=== PATIENT | male | born 1990 | race Caucasian/White ===

== ENCOUNTER 2019-09-20 00:55 | Emergency (ER) | payer SELFPAY ==
[~2019-09-20] VITALS: Ht 187 cm; Wt 79.0 kg
[2019-09-20] MEDS ORDERED: LIDOCAINE 2% VISCOUS 15 ML UDC ONE (01:03)
[2019-09-20] MEDS ORDERED: ANTACID SUSP 30 ML UDC (MYLANTA) ONE (01:03)
--- OUTSIDE RECORDS SUMMARY | 2019-09-20 01:03 | XMS REPORT | Continuity of Care Document ---
Author Author [facility] Organization [facility] Address [address] [place] [address] Phone Unavailable Care Team Providers Care Eap Counselor Name Role Phone Patient States, No PCP Unavailable Unavailable Insurance Providers Payer Name Policy Number Subscriber Name Relationship [facility] [id number] TAWNYA MARQUEZ SELF / SAME PATIENT Advance Directives Directive Response Recorded Date/Time Advance Directives: No 08/26/18 2:25am Chief Complaint and Reason for Visit Reason for Visit ER Problems Active Medical Problems Problem Onset Date Recorded Date Status Influenza due to Influenza A virus Unknown 05/16/13 Active Anxiety disorder Unknown 09/17/16 Active Heart palpitations Unknown 09/17/16 Active Fatigue Unknown 09/17/16 Active Stress and adjustment reaction Unknown 09/17/16 A ctive Skin abscess Unknown 11/07/17 Active Right shoulder pain Unknown 04/29/18 Active Fall Unknown 04/29/18 Active Pharyngitis Unknown 05/01/18 Active GERD (gastroesophageal reflux disease) Unknown 05/01/18 Active Chest wall pain Unknown 06/05/18 Active Contusion of left knee Unknown 06/24/18 Active Left knee pain Unknown 06/24/18 Active Malaise Unknown 07/01/18 Active DISPLACED OBLIQUE FRACTURE OF SHAFT OF LEFT RADIUS, INIT Unknown 08/10/18 Active Anxiety Unknown 08/26/18 Active Emotional crisis, acute reaction to stress Unknown 08/26 Active Medications Past Home Medications Medication Directions Ordered Status Ibuprofen 600 Mg Tablet Tablet, 600 Mg Oral Four times daily for pain 06/05/18 Discontinued No Home Medications Ea Ea, Unknown Disc ontinued Omeprazole (Prilosec) 20 Mg Capsule Capsule, 20 Mg Oral Once leah ly 06/05/18 Discontinued Ondansetron (Zofran) 4 Mg Tablet Tablet, 4 Mg Oral Thr ee times per day as needed for nausea 06/05/18 Discontinued Oseltamivir Phosphate (Tamiflu) 75 Mg Cap Cap, 75 Mg Oral Twice daily 05/16/13 Discontinued Sulfamethoxazole/Trimethoprim (Bactrim D s) 800 Mg/160 Mg Tablet Tablet, 1 Tab Oral Twice daily 11/07/17 Discontinued Family History Relationship Name Date of Condition Age ( At Onset ) Cause of Age ( At ) Age Gender Recorded Date/Time FATHER No pertinent family history M 07/01/181813 MOTHER No pertinent family history F 07/01/[birth year]1813 Social History Query Response Start Date Stop Date Smoking status: Heavy tobacco smoker 10+ Hospital Discharge Instructions No hospital discharge instructions. Plan of Care Discharge Date 08/26/18 Disposition HOME, SELF CARE, ASST LIVING Condition at Discharge Stable Instructions/Education Provided Anxiety, Adult (DC) Palpitations (DC) Prescriptions See Medications Section Referrals [facility] - Additional Instructions/Education -Avoid caffeine, smo seth! -Limit stress at home as much as possibl e. -F/u with [facility] for Cognitive Behavoral therapy. -Establish with PCP for ongoing manageme nt of anxiety ECHO. -See handout for methods to limit stress , relieve. Some of your test results may not be complete prior to your leaving the Emergency Department. The Emergency Department is not authorized to give test results over the phone. Please contact the doctor's office listed on this form for your final results. Follow up with your primary care physician or return to the Emergency Department for worsening or worrisome symptoms. * Emergency Department phone number: [phone] MEDICAL RECORD If you need copies of your X-rays, call [phone]. If you need copies of your medical record, including lab results, a signed authorization for release of records will be required. A telephone call for release of Health Information is not allowed. BILLING Billing can sometimes be confusing and frustrating. To help avoid confusion in the future, please take a moment to acquaint yourself with the billing parties for services. SERVICE BILLING [facility] Emergency [facility] Services [facility] Physician Services [facility] X-rays (Interpretation) [facility] Patients will receive bills for services from the appropriate provider. If you have any questions about your [facility] bill, our staff will be happy to assist you. Please call [phone] and ask for the billing department. THANK YOU for choosing [facility] as your emergency care provider. Care Plan and Goals ~~Discharge Care Plan~~ Problem: Palpitations Goal: Decreased palpitations Instructions: Take medication(s) as directed. Follow home discharge instructions. Follow up with primary care physician as directed. 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 Vital Signs Vital Reading Collection Date/Time Result Blood Pressure 08/26/18 4:55am 108/67 Blood Pressure Source 08/26/18 4:55am Supine Temperature 08/26/18 4:55am 98.2 F Temperature Source 08/26/18 4:55am Oral Respiratory Rate 08/26/18 4:55am 18 Pulse Rate 08/26/18 4:55am 62 Pulse Location 08/26/18 4:55am Cardio-Resp.Monitor Bedside Pulse Oximetry 08/26/18 4:55am 96 Height 08/26/18 2:25am 6 ft 2.02 in Height 08/26/18 2:25am 188 cm Weight 08/26/18 2:25am 175 lb Weight 08/26/18 2:25am 79.5 kg Body Mass Index 08/26/18 2:25am 22.5 kg/m2 Results Laboratory Results Test Name Result Units Flags Reference Collection Date/Time Result Date/Time Comments White Blood Count 11.6 K/mm3 H 4.8-10.8 08/26/18 3:35am 08/26 4:04am Red Blood Count 5.16 M/mm3 4.20-5.60 08/26/18 3:35am 4:04am Hemoglobin 14.8 g/dL 13.5-18.0 08/26/18 3:35am 08/26/18 4: 04am Hematocrit 44.6 % 42.0-52.0 08/26/18 3:35am 08/26/18 4: 04am Mean Corpuscular Volume 86 fl 78-100 08/26/18 3:35am 08/26/18 4:04am Mean Corpuscular Hemoglobin 29 pg 27-31 08/26/18 3:3 5am 08/26/18 4:04am Mean Corpuscular Hemoglobin Concent 33 g/dL 33-3 7 08/26/18 3:35am 08/26/18 4:04am Red Cell Distribution Width 13.1 % 11.5-14.5 08/26/18 3 :35am 08/26/18 4:04am Platelet Count 352 K/mm3 130-400 08/26/18 3:35am 08/26/18 4:04am Mean Platelet Volume 9.3 fl 7.4-10.4 08/26/18 3:35am 4:04am Absolute Neutrophils (auto) 56.0 % 42.0-75.2 08/26/18 3 :35am 08/26/18 4:04am Lymphocytes % 31.0 % 20.0-51.0 08/26/18 3:35am 08/26/18 4:04am Monocytes % 10.5 % *H 1.0-10.0 08/26/18 3:35am 08/26/18 4: 04am Eosinophils % 1.7 % 0.0-4.0 08/26/18 3:35am 08/26/18 4 :04am Basophils % 0.6 % 0.0-2.0 08/26/18 3:35am 08/26/18 4:0 4am Absolute Neutrophil 6.5 1.40-6.50 08/26/18 3:35am 4:04am Lymphocytes # 3.6 1.50-4.00 08/26/18 3:35am 08/26/18 4:04am Monocytes # 1.2 H 0.20-0.80 08/26/18 3:35am 08/26/18 4 :04am Eosinophils # 0.2 0.04-0.40 08/26/18 3:35am 08/26/18 4:04am Basophils # 0.1 0.02-0.10 08/26/18 3:35am 08/26/18 4 :04am D-Dimer 0.25 mg/L FEU 0.15-0.50 08/26/18 3:35am 08/26/18 4:16 am A D-Dimer of 0.50 mg/L FEU or less with an otherwise normal patient history = LOW PROBABILITY OF DVT/PE. A D-Dimer of >0.50 mg/L FEU = CONTINUE THE INVESTIGATION TO RULE OUT DVT/PE. Glucose Level 95 mg/dL 75-110 08/26/18 3:35am 08/26/18 4 :04am Blood Urea Nitrogen 13 mg/dL 9-20 08/26/18 3:35am 08/17 4:04am Creatinine 0.9 mg/dL 0.8-1.5 08/26/18 3:35am 08/26/18 4:04 am Estimated GFR () 122 9 3:35am 08/26/18 4:04am Estimated GFR (Non- 101 08/17 3:35am 08/26/18 4:04am eGFR Interpretation: Chronic Kidney Disease = CKD CKD STAGE I > or = 90 mL/min/1.73 square meters STAGE II 60 - 89 STAGE III 30 - 59 STAGE IV 15 - 29 STAGE V <15 NOTE: The MDRD Study equation has not been validated for use with the elderly (over 70 years of age), women, patients with serious comorbid conditions, or persons with extremes of body size, muscle mass, or nutritional status. BUN/Creatinine Ratio 15.4 6.0-26.0 08/26/18 3:35am 4:04am Sodium Level 139 mmol/L 137-145 08/26/18 3:35am 08/26/18 4: 04am Potassium Level 3.6 mmol/L 3.6-5.0 08/26/18 3:35am 08/26/18 4:04am Chloride Level 106 mmol/L 98-107 08/26/18 3:35am 08/26/18 4:04am Carbon Dioxide Level 25 mmol/L 22-30 08/26/18 3:35am 03/06 4:04am Calcium Level 9.6 mg/dL 8.4-10.2 08/26/18 3:35am 08/26/18 4:04am Serum Total Protein 7.4 g/dL 6.3-8.2 08/26/18 3:35am 08/17 4:04am Albumin 4.4 g/dL 3.5-5.0 08/26/18 3:35am 08/26/18 4:04am Total Bilirubin 0.5 mg/dL 0.2-1.3 08/26/18 3:35am 08/26/18 4:04am Aspartate Amino Transf (AST/SGOT) 23 U/L 17-59 08/26/18 3:35am 08/26/18 4:04am Alanine Aminotransferase (ALT/SGPT) 20 U/L L 21-7 2 08/26/18 3:35am 08/26/18 4:04am Alkaline Phosphatase 73 U/L 38-126 08/26/18 3:35am 03/06 4:04am Troponin I < 0.03 ng/mL 0.00-0.06 08/26/18 3:35am 08/26/18 4: 04am Urine Collection Type CLEAN CATCH 08/26/18 3:05a m 08/26/18 4:14am Urine Color YELLOW 08/26/18 3:05am 08/26/18 4:1 4am Urine Appearance HAZY 08/26/18 3:05am 9 4:14am Urine Specific [place] 1.030 1.001-1.035 08/26/18 3:05 am 08/26/18 4:14am Urine pH 5.5 5.0 - 8.0 08/26/18 3:05am 08/26/18 4:14 am Urine Protein NEGATIVE mg/dL NEGATIVE 08/26/18 3:05am 08/26/18 4:14am Urine Glucose (UA) NEGATIVE mg/dL NEGATIVE 08/26/18 3:05am 03/06 4:14am Urine Ketones NEGATIVE NEGATIVE 08/26/18 3:05am 08/26/18 4:14am Urine Bilirubin NEGATIVE NEGATIVE 08/26/18 3:05am 4:14am Urine Urobilinogen NORMAL NORMAL 08/26/18 3:05am 08/26 4:14am Urine Nitrate NEGATIVE NEGATIVE 08/26/18 3:05am 08/26/18 4:14am Urine Blood TRACE H NEGATIVE 08/26/18 3:05am 08/26/18 4: 14am Urine Leukocyte Esterase NEGATIVE NEGATIVE 08/26/18 3:05 am 08/26/18 4:14am Urine WBC 0-1 /hpf 0-3 08/26/18 3:05am 08/26/18 4:14a m Urine RBC 0-1 /hpf 0-3 08/26/18 3:05am 08/26/18 4:14a m Urine Epithelial Cells RARE /lpf FEW 08/26/18 3:05am 0 08/26/18 4:14am Urine Bacteria TRACE NOT PRESENT 08/26/18 3:05am 08/26 4:14am Urine Mucus PRESENT H NOT PRESENT 08/26/18 3:05am 08/26/18 4:14am Urine Amphetamine Screen NEGATIVE ng/mL 08/26/18 3:05a m 08/26/18 4:13am Interpretive Note: Cutoff 500 ng/mL Urine Barbiturates Screen NEGATIVE ng/mL 08/26/18 3:05 am 08/26/18 4:13am Interpretive Note: Cutoff 200 ng/mL Urine Benzodiazepines Screen NEGATIVE ng/mL 08/26/18 3 :05am 08/26/18 4:13am Interpretive Note: Cutoff 150 ng/mL Urine Buprenorphine Screen NEGATIVE ng/mL 08/26/18 3:0 5am 08/26/18 4:13am Interpretive Note: Cutoff 10 ng/mL Urine Cocaine Screen NEGATIVE ng/mL 08/26/18 3:05am 4:13am Interpretive Note: Cutoff 150 ng/mL Urine Methamphetamines Screen NEGATIVE ng/mL 08/26/18 3:05am 08/26/18 4:13am Interpretive Note: Cutoff 500 ng/mL Urine Methadone Screen NEGATIVE ng/mL 08/26/18 3:05am 08/26/18 4:13am Interpretive Note: Cutoff 200 ng/mL Urine Opiates Screen NEGATIVE ng/mL 08/26/18 3:05am 4:13am Interpretive Note: Cutoff 100 ng/mL Urine Oxycodone Screen NEGATIVE ng/mL 08/26/18 3:05am 08/26/18 4:13am Interpretive Note: Cutoff 100 ng/mL Urine Phencyclidine Screen NEGATIVE ng/mL 08/26/18 3:0 5am 08/26/18 4:13am Interpretive Note: Cutoff 25 ng/mL Urine Propoxyphene Screen NEGATIVE ng/mL 08/26/18 3:05 am 08/26/18 4:13am Interpretive Note: Cutoff 300 ng/mL Urine Tricyclic Antidepressants NEGATIVE ng/mL 08/26/18 3:05am 08/26/18 4:13am Interpretive Note: Cutoff 300 ng/mL Urine Cannabinoids Screen NEGATIVE ng/mL 08/26/18 3:05 am 08/26/18 4:13am Interpretive Note: Cutoff 50 ng/mL Procedures No Known History of Procedures. Encounters Encounter Location Arrival/Admit Date Discharge/Depart Date Attending Provider Departed [facility] 08/26/18 2:23am 08/26/18 4: 55am Jennifer Machuca APRN Departed Emergency [facility] 08/10/18 6:29pm 08/10/18 8: 20pm [facility] 1: 10am Marie Dennis APRN Encounter Diagnosis Onset Date Heart palpitations Anxiety Emotional crisis, acute reaction to stress
--- OUTSIDE RECORDS SUMMARY | 2019-09-20 01:03 | XMS REPORT | Continuity of Care Document ---
Author Author [facility] Organization [facility] Address [address] [place] [address] Phone tel Care Team Providers Care Orthotic Practitioner Name Role Phone Patient States, PCP No PCP Unavailable Allergies, Adverse Reactions, Alerts Allergen Type Severity Reaction Last Updated Verified Status No Known Drug Allergies Allergy Unknown Yes Active Medications No known medications. Problems Active Problems Medical Problem Onset Date Status Influenza due to Influenza A virus Activ e Anxiety disorder Active Heart palpitations Active Fatigue Active Stress and adjustment reaction Active Skin abscess Active Right shoulder pain Active Fall Active Pharyngitis Active GERD (gastroesophageal reflux disease) A ctive Chest wall pain Active Contusion of left knee Active Left knee pain Active Malaise Active DISPLACED [place] FRACTURE OF SHAFT OF LEFT RADIUS, INIT Active Anxiety Active Emotional crisis, acute reaction to stress Active Viral illness Active Common cold virus Active Insomnia Active Procedures No procedure information available. Relevant Diagnostic Tests and/or Laboratory Data Laboratory Results Test Date/Time Result Interpretation Reference Range Result Co mment Performing Site White Blood Count February 28, 2019 4:50am 8.4 4.8-[address] [address] Red Blood Count February 28, 2019 4:50am 5.07 4.20-5.[address] [address] Hemoglobin February 28, 2019 4:50am 14.7 13.5-18.[address] [address] Hematocrit February 28, 2019 4:50am 44.0 42.0-52.0 [facility], [address] [place] [address] Mean Corpuscular Volume February 28, 2019 4:50am 87 78-100 [facility], [address] [place] [address] Mean Corpuscular Hemoglobin February 28, 2019 4:50am 29 27-31 [facility], [address] [place] [address] Mean Corpuscular Hemoglobin Concent February 28, 2019 4:50am 33 33-37 [facility], [address] [place] [phone] Red Cell Distribution Width February 28, 2019 4:50am 12.9 11.5-14.5 [facility], [address] [place] [address] Platelet Count February 28, 2019 4:50am 282 130-400 [facility], [address] [place] [address] Mean Platelet Volume February 28, 2019 4:50am 9.6 7.4 -10.4 [facility], [address] [place] [address] Absolute Neutrophils (auto) February 28, 2019 4:50am 50.0 42.0-75.2 [facility], [address] [place] [address] Lymphocytes % February 28, 2019 4:50am 34.5 20.0-51.0 [facility], [address] [place] [address] Monocytes % February 28, 2019 4:50am 10.9 1.0-10.[address] [address] Eosinophils % February 28, 2019 4:50am 3.8 0.0-4.[address] [address] Basophils % February 28, 2019 4:50am 0.7 0.0-2.[address] [address] Absolute Neutrophil February 28, 2019 4:50am 4.2 1.40 -6.50 [facility], [address] [place] [address] Lymphocytes # February 28, 2019 4:50am 2.9 1.50-4.00 [facility], [address] [place] [address] Monocytes # February 28, 2019 4:50am 0.9 0.20-0.80 [facility], [address] [place] [address] Eosinophils # February 28, 2019 4:50am 0.3 0.04-0.40 [facility], [address] [place] [address] Basophils # February 28, 2019 4:50am 0.1 0.02-0.10 [facility], [address] [place] [address] Urine Collection Type February 28, 2019 5:08am CLEAN CATCH [facility], [address] [place] [address] Urine Color February 28, 2019 5:08am YELLOW [facility], [address] [place] [address] Urine Appearance February 28, 2019 5:08am CLEAR [facility], [address] [place] [address] Urine Specific [place] February 28, 2019 5:08am 1.022 1 .001-1.035 [facility], [address] [place] [address] Urine pH February 28, 2019 5:08am 7.0 5.0 - 8.0 [facility], [address] [place] [address] Urine Protein February 28, 2019 5:08am TRACE NEGATIVE [facility], [address] [place] [address] Urine Glucose (UA) February 28, 2019 5:08am NEGATIVE NEGAT ANTHONY [facility], [address] [place] [address] Urine Ketones February 28, 2019 5:08am NEGATIVE NEGATIVE [facility], [address] [place] [address] Urine Bilirubin February 28, 2019 5:08am NEGATIVE NEGATIVE [facility] [address] [place] [address] Urine Urobilinogen February 28, 2019 5:08am NORMAL TRE L [facility], [address] [place] [address] Urine Nitrate February 28, 2019 5:08am NEGATIVE NEGATIVE [facility], [address] [place] [address] Urine Blood February 28, 2019 5:08am NEGATIVE NEGATIVE [facility], [address] [place] [address] Urine Leukocyte Esterase February 28, 2019 5:08am TRACE NEGATIVE [facility], [address] [place] [address] Urine WBC February 28, 2019 5:08am 0-1 0-3 [facility], [address] [place] [address] Urine RBC February 28, 2019 5:08am 0-1 0-3 [facility], [address] [place] [address] Urine Epithelial Cells February 28, 2019 5:08am RARE F EW [facility], [address] [place] [address] Urine Bacteria February 28, 2019 5:08am NONE NOT PRESE NT [facility], [address] [place] [address] Urine Mucus February 28, 2019 5:08am PRESENT NOT PRESENT [facility], [address] [place] [address] Urine Amorphous Sediment February 28, 2019 5:08am PRESENT NOT PRESENT [facility], [address] [place] [address] Glucose Level February 28, 2019 4:50am 106 75-110 [facility], [address] [place] [address] Blood Urea Nitrogen February 28, 2019 4:50am 8 8.9- 20.6 [facility], [address] [place] [address] Sodium Level February 28, 2019 4:50am 141 136-145 [facility], [address] [place] [address] Potassium Level February 28, 2019 4:50am 3.8 3.5-5.1 [facility], [address] [place] [address] Chloride Level February 28, 2019 4:50am 108 98-107 [facility], [address] [place] [address] Carbon Dioxide Level February 28, 2019 4:50am 25 22- 29 [facility], [address] [place], [place] [address] Calcium Level February 28, 2019 4:50am 9.2 8.3-10.5 [facility], [address] [place] [address] Serum Total Protein February 28, 2019 4:50am 6.7 6.4- 8.3 [facility], [address] [place] [address] Albumin February 28, 2019 4:50am 4.0 3.5-5.0 [facility], [address] [place] [address] Total Bilirubin February 28, 2019 4:50am 0.3 0.2-1.2 [facility], [address] [place] [address] Aspartate Amino Transf (AST/SGOT) February 28, 2019 4:50am 12 5-34 [facility], [address] [place] [address] Alanine Aminotransferase (ALT/SGPT) February 28, 2019 4:50am 18 0-55 [facility], [address] [place] [address] Alkaline Phosphatase February 28, 2019 4:50am 79 40- [address] [address] Thyroid Stimulating Hormone (TSH) February 28, 2019 12:45am 0.85 0.35-4.[address] [address] Urine Amphetamine Screen February 28, 2019 5:08am NEGATIVE Interpretive Note: Cutoff 500 ng/mL [address] [address] Urine Barbiturates Screen February 28, 2019 5:08am NEGATIVE Interpretive Note: Cutoff 200 ng/mL [facility], [address] [place] [address] Urine Benzodiazepines Screen February 28, 2019 5:08am NEGATIVE Interpretive Note: Cutoff 150 ng/mL [facility], [address] [place] [address] Urine Buprenorphine Screen February 28, 2019 5:08am NEGATIVE Interpretive Note: Cutoff 10 ng/mL [facility], [address] [place] [address] Urine Cocaine Screen February 28, 2019 5:08am NEGATIVE Interpretive Note: Cutoff 150 ng/mL [facility], [address] [place] [address] Urine Methamphetamines Screen February 28, 2019 5:08am NEGATIVE Interpretive Note: Cutoff 500 ng/mL [facility], [address] [place] [address] Urine Methadone Screen February 28, 2019 5:08am NEGATIVE Interpretive Note: Cutoff 200 ng/mL [facility], [address] [place] [address] Urine Opiates Screen February 28, 2019 5:08am NEGATIVE Interpretive Note: Cutoff 100 ng/mL [facility], [address] [place] [address] Urine Oxycodone Screen February 28, 2019 5:08am NEGATIVE Interpretive Note: Cutoff 100 ng/mL [facility], [address] [place] [address] Urine Phencyclidine Screen February 28, 2019 5:08am NEGATIVE Interpretive Note: Cutoff 25 ng/mL [facility], [address] [place] [address] Urine Propoxyphene Screen February 28, 2019 5:08am NEGATIVE Interpretive Note: Cutoff 300 ng/mL [facility], [address] [place] [address] Urine Tricyclic Antidepressants February 28, 2019 5:08am NEGATIVE Interpretive Note: Cutoff 300 ng/mL [facility], [address] [place] [address] Urine Cannabinoids Screen February 28, 2019 5:08am NEGATIVE Interpretive Note: Cutoff 50 ng/mL [facility], [address] [place] [address] Troponin I February 28, 2019 4:50am < 0.03 <0.030 [facility], [address] [place] [phone] Health Concerns No known health concerns documented Advance Directives Advance Directive Response Recorded Date/Time No No February 28, 2019 4 :29am Chief Complaint and Reason for Visit Reason for Visit ER Encounters Encounter Location(s) Arrival/Admit Date Discharge/Depart Date Provider(s) Departed Emergency [facility] February 28, 2019 4:21a m February 28, 2019 7:20am Harley Perry MD Recent Diagnosis Onset Date Insomnia Heart palpitations Assessments Diagnosis Onset Date Resolution Status Insomnia Active Heart palpitations Active Family History Relationship Condition Age at Onset Recorded Date/Ti me FATHER No pertinent family history Unknown Febr ua 2018 6:14pm MOTHER No pertinent family history Unknown Febr 2018 6:14pm Functional Status Observation Response Date Recorded Paralysis: N February 28, 2019 4 :35am Steady Gait: Y February 28, 2019 4 :35am 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 Payer Policy Id Coverage Id Subscriber's Name Subscriber Id Effect anthony Date Expiration Date [place] [id number] TAWNYA MARQUEZ Plan of Treatment Future Tests Future scheduled test information is unavailable Pending Tests Pending diagnostic test information is unavailable Future Visits Future appointment information is unavailable Referrals to Other Providers Reason for Referral Referral Start Date Provider Provider Conta ct Information Provider Address Patient States, No PCP Future Procedures Future procedure information is unavailable Future Medications Future medication information is unavailable Patient Instructions Palpitations (DC) Social History Smoking Status Status Date of Observation Current Heavy tobacco smoker February 28, 2019 4:34am Assigned Sex Male Vital Signs Vital Reading Result Collection Date/Time BP Systolic 123 mm[Hg] February 28, 2019 7 :20am BP Diastolic 73 mm[Hg] February 28, 2019 7 :20am Body Temperature 98.2 [degF] February 28, 2019 7 :20am Respiratory rate 16 /min February 28, 2019 7 :20am Heart Rate 58 /min February 28, 2019 7 :20am Oxygen saturation by Pulse oximetry 99 % Octo 2018 7:20am Height 74.398594 [in_i] February 28, 2019 4 :29am Weight 175.00 [lb_av] February 28, 2019 4 :29am Weight 79.5 kg February 28, 2019 4 :29am BMI (Body Mass Index) 22.5 kg/m2 February 28, 2019 4:29am
--- OUTSIDE RECORDS SUMMARY | 2019-09-20 01:03 | XMS REPORT | Continuity of Care Document ---
Author Author [facility] Organization [facility] Address [address] [place] [address] Phone tel Care Team Providers Care Credit Negotiator Name Role Phone Patient States, PCP No [...] Active Common cold virus Active Insomnia Active Acid indigestion Active Procedures No procedure information available. Relevant Diagnostic Tests and/or Laboratory Data Laboratory Results Test Date/Time Result Interpretation Reference Range Result Co mment Performing Site White Blood Count February 28, 2019 4:50am 8.4 4.8-[address] [address] Red Blood Count February 28, 2019 4:50am 5.07 4.20-5.[address] [address] Hemoglobin February 28, 2019 4:50am 14.7 13.5-18.[address] [address] Hematocrit February 28, 2019 4:50am 44.0 42.0-52.0 [facility], [address] [place] [address] Mean Corpuscular Volume February 28, 2019 4:50am 87 78-100 [facility], [address] [place] [address] Mean Corpuscular Hemoglobin February 28, 2019 4:50am 29 27-31 [facility], [address] [place] [address] Mean Corpuscular Hemoglobin Concent February 28, 2019 4:50am 33 33-37 [facility], [address] [place] [phone] Red Cell Distribution Width February 28, 2019 4:50am 12.9 11.5-14.5 [facility], [address] [place] [address] Platelet Count February 28, 2019 4:50am 282 130-400 [facility], [address] [place] [address] Mean Platelet Volume February 28, 2019 4:50am 9.6 7.4 -10.4 [facility], [address] [place] [address] Absolute Neutrophils (auto) February 28, 2019 4:50am 50.0 42.0-75.2 [facility], [address] [place] [phone] Lymphocytes % February 28, 2019 4:50am 34.5 20.0-51.0 [facility], [address] [place] [address] Monocytes % February 28, 2019 4:50am 10.9 1.0-10.0 [facility], [address] [place] [address] Eosinophils % February 28, 2019 4:50am 3.8 0.0-4.0 [facility], [address] [place] [address] Basophils % February 28, 2019 4:50am 0.7 0.0-2.[address] [address] Absolute Neutrophil February 28, 2019 4:50am 4.2 1.40 -6.50 [facility], [address] [place] [address] Lymphocytes # February 28, 2019 4:50am 2.9 1.50-4.00 [facility], [address] [place] [address] Monocytes # February 28, 2019 4:50am 0.9 0.20-0.80 [facility], [address] [place] [address] Eosinophils # February 28, 2019 4:50am 0.3 0.04-0.40 [facility], [address] [place] [address] Basophils # February 28, 2019 4:50am 0.1 0.02-0.10 [facility], [address] [place] [address] Urine Collection Type February 28, 2019 5:08am CLEAN CATCH [facility], [address] [place], [place] [phone] Urine Color February 28, 2019 5:08am YELLOW [facility], [address] [place] [address] Urine Appearance February 28, 2019 5:08am CLEAR [facility], [address] [place], [place] [phone] Urine Specific [place] February 28, 2019 5:08am 1.022 1 .001-1.035 [facility], [address] [place], [place] [phone] Urine pH February 28, 2019 5:08am 7.0 5.0 - 8.0 [facility], [address] [place] [address] Urine Protein February 28, 2019 5:08am TRACE NEGATIVE [facility], [address] [place] [phone] Urine Glucose (UA) February 28, 2019 5:08am NEGATIVE NEGAT ANTHONY [facility], [address] [place], [place] [phone] Urine Ketones February 28, 2019 5:08am NEGATIVE NEGATIVE [facility], [address] [place] [address] Urine Bilirubin February 28, 2019 5:08am NEGATIVE NEGATIVE [facility], [address] [place] [phone] Urine Urobilinogen February 28, 2019 5:08am NORMAL TRE L [facility], [address] [place] [phone] Urine Nitrate February 28, 2019 5:08am NEGATIVE NEGATIVE [facility], [address] [place] [address] Urine Blood February 28, 2019 5:08am NEGATIVE NEGATIVE [facility], [address] [place] [address] Urine Leukocyte Esterase February 28, 2019 5:08am TRACE NEGATIVE [facility], [address] [place] [address] Urine WBC February 28, 2019 5:08am 0-1 0-3 [facility], [address] [place] [address] Urine RBC February 28, 2019 5:08am 0-1 0-3 [facility], [address] [place] [address] Urine Epithelial Cells February 28, 2019 5:08am RARE F EW [facility], [address] [place] [address] Urine Bacteria February 28, 2019 5:08am NONE NOT PRESE NT [facility], [address] [place] [address] Urine Mucus February 28, 2019 5:08am PRESENT NOT PRESENT [facility], [address] [place] [address] Urine Amorphous Sediment February 28, 2019 5:08am PRESENT NOT PRESENT [facility], [address] [place] [address] Glucose Level February 28, 2019 4:50am 106 75-110 [facility], [address] [place] [address] Blood Urea Nitrogen February 28, 2019 4:50am 8 8.9- 20.6 [facility], [address] [place] [address] Creatinine February 28, 2019 4:50am 0.8 0.72-1.25 [facility], [address] [place] [address] Estimated GFR () February 28, 2019 4:50am 140 >=60 [facility], [address] [place] [phone] Estimated GFR (Non- February 28, 2019 4:50am 116 >=60 Normal >= 60Mild to moderate decrease 45-59Moderate to severe decrease 30-44Severe decrease 15-29Kidney Failure < 15 [facility], [address] [place] [address] BUN/Creatinine Ratio February 28, 2019 4:50am 10.0 6.0 -26.0 [facility], [address] [place] [address] Sodium Level February 28, 2019 4:50am 141 136-145 [facility], [address] [place] [address] Potassium Level February 28, 2019 4:50am 3.8 3.5-5.1 [facility], [address] [place] [address] Chloride Level February 28, 2019 4:50am 108 98-107 [facility], [address] [place] [address] Carbon Dioxide Level February 28, 2019 4:50am 25 22- 29 [facility], [address] [place] [address] Calcium Level February 28, 2019 4:50am 9.2 8.3-10.5 [facility], [address] [place] [address] Serum Total Protein February 28, 2019 4:50am 6.7 6.4- 8.[address] [address] Albumin February 28, 2019 4:50am 4.0 3.5-5.0 [facility], [address] [place] [address] Total Bilirubin February 28, 2019 4:50am 0.3 0.2-1.[address] [address] Aspartate Amino Transf (AST/SGOT) February 28, 2019 4:50am 12 5-34 [facility], [address] [place] [phone] Alanine Aminotransferase (ALT/SGPT) February 28, 2019 4:50am 18 0-55 [facility], [address] [place] [address] Alkaline Phosphatase February 28, 2019 4:50am 79 40- [address] [address] Thyroid Stimulating Hormone (TSH) February 28, 2019 12:45am 0.85 0.35-4.94 [facility], [address] [place] [address] Urine Amphetamine Screen February 28, 2019 5:08am NEGATIVE Interpretive Note: Cutoff 500 ng/mL [facility], [address] [place] [phone] Urine Barbiturates Screen February 28, 2019 5:08am NEGATIVE Interpretive Note: Cutoff 200 ng/mL [facility], [address] [place] [phone] Urine Benzodiazepines Screen February 28, 2019 5:08am NEGATIVE Interpretive Note: Cutoff 150 ng/mL [facility], [address] [place] [address] Urine Buprenorphine Screen February 28, 2019 5:08am NEGATIVE Interpretive Note: Cutoff 10 ng/mL [facility], [address] [place] [phone] Urine Cocaine Screen February 28, 2019 5:08am NEGATIVE Interpretive Note: Cutoff 150 ng/mL [facility], [address] [place] [address] Urine Methamphetamines Screen February 28, 2019 5:08am NEGATIVE Interpretive Note: Cutoff 500 ng/mL [facility], [address] [place] [phone] Urine Methadone Screen February 28, 2019 5:08am NEGATIVE Interpretive Note: Cutoff 200 ng/mL [facility], [address] [place] [address] Urine Opiates Screen February 28, 2019 5:08am NEGATIVE Interpretive Note: Cutoff 100 ng/mL [address] [address] Urine Oxycodone Screen February 28, 2019 5:08am NEGATIVE Interpretive Note: Cutoff 100 ng/mL [facility], [address] [place] [phone] Urine Phencyclidine Screen February 28, 2019 5:08am NEGATIVE Interpretive Note: Cutoff 25 ng/mL [address] [address] Urine Propoxyphene Screen February 28, 2019 5:08am NEGATIVE Interpretive Note: Cutoff 300 ng/mL [address] [address] Urine Tricyclic Antidepressants February 28, 2019 5:08am NEGATIVE Interpretive Note: Cutoff 300 ng/mL [address] [address] Urine Cannabinoids Screen February 28, 2019 5:08am NEGATIVE Interpretive Note: Cutoff 50 ng/mL [address] [address] Troponin I February 28, 2019 4:50am < 0.03 <0.[address] [address] Health Concerns No known health concerns documented Advance Directives Advance Directive Response Recorded Date/Time No No March 04, 2019 7 :25pm Chief Complaint and Reason for Visit Reason for Visit ER Encounters Encounter Location(s) Arrival/Admit Date Discharge/Depart Date Provider(s) Departed Emergency [facility] March 04, 2019 7:04p m March 04, 2019 9:45pm Jennifer Machuca APRN Departed Emergency [facility] February 28, 2019 4:21a m February 28, 2019 7:20am Harley Perry MD Recent Diagnosis Onset Date Acid indigestion Insomnia Heart palpitations Assessments Diagnosis Onset Date Resolution Status Acid indigestion Active Insomnia Active Heart palpitations Active Family History Relationship Condition Age at Onset Recorded Date/Ti me FATHER No pertinent family history Unknown Febr 2018 6:14pm MOTHER No pertinent family history Unknown Febr 2018 6:14pm Functional Status Observation Response Date Recorded Paralysis: N March 04, 2019 9 :15pm Steady Gait: Y March 04, 2019 9 :15pm Hand Financial Sales Representative Equal: Y March 04, 2019 9 :15pm Goals No Goals Information Available Immunizations No Immunization Information Available Mental Status No Mental Status Information Available Medical Equipment No Medical Equipment Information available Insurance Providers Guarantor TAWNYA MARQUEZ Address [address] [place] [id number] Contact Info. Payer Policy Id Coverage Id Subscriber's Name Subscriber Id Effect anthony Date Expiration Date [place] [id number] TAWNYA MARQUEZ Plan of Treatment Future Tests Future scheduled test information is unavailable Pending Tests Pending diagnostic test information is unavailable Future Visits Future appointment information is unavailable Referrals to Other Providers Reason for Referral Referral Start Date Provider Provider Conta ct Information Provider Address [facility], [facility] Future Procedures Future procedure information is unavailable Future Medications Future medication information is unavailable Patient Instructions Dyspepsia (DC) Social History Smoking Status Status Date of Observation Current Heavy tobacco smoker March 04, 2019 8:03pm Assigned Sex Male Vital Signs Vital Reading Result Collection Date/Time BP Systolic 106 mm[Hg] March 04, 2019 9 :45pm BP Diastolic 74 mm[Hg] March 04, 2019 9 :45pm Body Temperature 98.2 [degF] March 04, 2019 9 :45pm Respiratory rate 16 /min March 04, 2019 9 :45pm Heart Rate 69 /min March 04, 2019 9 :45pm Oxygen saturation by Pulse oximetry 98 % 2018 9:45pm Height 0 [in_i] March 04, 2019 7 :25pm Height 0 cm March 04, 2019 7 :25pm BP Systolic 123 mm[Hg] February 28, 2019 7 :20am BP Diastolic 73 mm[Hg] February 28, 2019 7 :20am Body Temperature 98.2 [degF] February 28, 2019 7 :20am Respiratory rate 16 /min February 28, 2019 7 :20am Heart Rate 58 /min February 28, 2019 7 :20am Oxygen saturation by Pulse oximetry 99 % 2018 7:20am Height 74.197060 [in_i] February 28, 2019 4 :29am Weight 175.00 [lb_av] February 28, 2019 4 :29am Weight 79.5 kg February 28, 2019 4 :29am BMI (Body Mass Index) 22.5 kg/m2 February 28, 2019 4:29am
--- OUTSIDE RECORDS SUMMARY | 2019-09-20 01:03 | XMS REPORT | Continuity of Care Document ---
Author Author Organization Address [address] [place] [address] Phone Unavailable Care Team Providers Care Wet Sander Name Role Phone Patient States, No PCP Unavailable Unavailable Insurance Providers Payer Name Policy Number Subscriber Name Relationship [facility] [id number] TAWNYA MARQUEZ SELF / SAME PATIENT Advance Directives Directive Response Recorded Date/Time Advance Directives: No 11/24/18 2:24am Chief Complaint and Reason for Visit Reason [...] acute reaction to stress Unknown 08/26 Active Viral illness Unknown 11/24/18 Active Medications Current Home Medications Medication Dose Units Route Directions Days/Qty Instructions Star t Date Ondansetron (Zofran) 4 MG TABLET 4 MG ORAL Every eight hours as needed as needed for nausea and vomiting 10 Days 07/09/19 Past Home Medications Medication Directions Ordered Status [...] Response Start Date Stop Date Smoking status: Current every day smoker Hospital Discharge Instructions No hospital discharge instructions. Plan of Care Discharge Date 11/24/18 Disposition HOME, SELF CARE, ASST LIVING Condition at Discharge Stable Instructions/Education Provided Viral Syndrome (DC) Prescriptions See Medications Section Referrals Patient States,No PCP - [facility] - One Week Additional Instructions/Education Push fluids - Water Prescription for nausea medication sent to pharmacy take as directed. Tylenol and Ibuprofen as needed for pain over the counter. Take with food. Advance diet as tolerated. If worse, concerns return to the ER. Some of your test results may not [...] worrisome symptoms. * Emergency Department phone number: [phone] MEDICAL RECORD If you need copies of your X-rays, call [phone]. If you need copies of your medical record, including lab results, a signed authorization for release of records will be required. A telephone call for release of Health Information is not allowed. BILLING Billing can sometimes be confusing and frustrating. To help avoid confusion in the future, please take a moment to acquaint yourself with the billing parties for services. SERVICE BILLING [facility] Emergency Room Services Physician Services [facility] X-rays (Interpretation) [facility] Patients will receive bills for services from the appropriate provider. If you have any questions about your bill, our staff will be happy to assist you. Please call [phone] and ask for the billing department. THANK YOU for choosing as your emergency care provider. Care Plan and Goals ~~Discharge Care Plan~~ Problem: Nausea, vomiting or diarrhea Goal: Decrease in nausea, vomiting or diarrhea Instructions: Encourage fluids approximately 6-8 glasses of water or noncarbonated fluids. Take medication(s) as directed. Follow home discharge instructions. Follow up with primary care physicians or supervisor roving as directed. Functional Status Query Response Date Recorded Paralysis: N August 26, 2018 2:35a m Steady Gait: Y November 24, 2018 2:30am Hand Application Support Technician Equal: Y August 26, 2018 2:35a m Allergies, Adverse Reactions, Alerts Allergen Type Severity Reaction Status Last Updated No Known Drug Allergies Allergy Unknown Active 0 11/24/18 Immunizations No Known History of Immunizations. Vital Signs Vital Reading Collection Date/Time Result Blood Pressure 11/24/18 3:33am 112/68 Blood Pressure Source 11/24/18 3:33am Sitting Temperature 11/24/18 3:33am 98.1 F Temperature Source 11/24/18 3:33am Oral Respiratory Rate 11/24/18 3:33am 16 Pulse Rate 11/24/18 3:33am 68 Pulse Location 11/24/18 3:33am Machine Bedside Pulse Oximetry 11/24/18 3:33am 98 Results Laboratory Results Test Name Result Units Flags Reference Collection Date/Time Result Date/Time Comments White Blood Count 8.8 K/mm3 4.8-10.8 11/24/18 2:45am 11/24 3:04am Red Blood Count 5.37 M/mm3 4.20-5.60 11/24/18 2:45am 3:04am Hemoglobin 15.6 g/dL 13.5-18.0 11/24/18 2:45am 11/24/18 3: 04am Hematocrit 46.8 % 42.0-52.0 11/24/18 2:45am 11/24/18 3: 04am Mean Corpuscular Volume 87 fl 78-100 11/24/18 2:45am 11/24/18 3:04am Mean Corpuscular Hemoglobin 29 pg 27-31 11/24/18 2:4 5am 11/24/18 3:04am Mean Corpuscular Hemoglobin Concent 33 g/dL 33-3 7 11/24/18 2:45am 11/24/18 3:04am Red Cell Distribution Width 12.8 % 11.5-14.5 11/24/18 2 :45am 11/24/18 3:04am Platelet Count 299 K/mm3 130-400 11/24/18 2:45am 11/24/18 3:04am Mean Platelet Volume 9.4 fl 7.4-10.4 11/24/18 2:45am 3:04am Absolute Neutrophils (auto) 54.2 % 42.0-75.2 11/24/18 2 :45am 11/24/18 3:04am Lymphocytes % 32.0 % 20.0-51.0 11/24/18 2:45am 11/24/18 3:04am Monocytes % 11.1 % *H 1.0-10.0 11/24/18 2:45am 11/24/18 3: 04am Eosinophils % 1.9 % 0.0-4.0 11/24/18 2:45am 11/24/18 3 :04am Basophils % 0.6 % 0.0-2.0 11/24/18 2:45am 11/24/18 3:0 4am Absolute Neutrophil 4.8 1.40-6.50 11/24/18 2:45am 3:04am Lymphocytes # 2.8 1.50-4.00 11/24/18 2:45am 11/24/18 3:04am Monocytes # 1.0 H 0.20-0.80 11/24/18 2:45am 11/24/18 3 :04am Eosinophils # 0.2 0.04-0.40 11/24/18 2:45am 11/24/18 3:04am Basophils # 0.1 0.02-0.10 11/24/18 2:45am 11/24/18 3 :04am Glucose Level 87 mg/dL 75-110 11/24/18 2:45am 11/24/18 3 :18am Blood Urea Nitrogen 11 mg/dL 8.9-20.6 11/24/18 2:45am 02/04 3:18am Creatinine 0.8 mg/dL 0.72-1.25 11/24/18 2:45am 11/24/18 3: 18am Estimated GFR () 140 >=60 9 2:45am 11/24/18 3:18am Estimated GFR (Non- 116 >=60 11/24/18 2:45am 11/24/18 3:18am Normal >= 60 Mild to moderate decrease 45-59 Moderate to severe decrease 30-44 Severe decrease 15-29 Kidney Failure < 15 BUN/Creatinine Ratio 13.0 6.0-26.0 11/24/18 2:45am 3:18am Sodium Level 138 mmol/L 136-145 11/24/18 2:45am 11/24/18 3: 18am Potassium Level 3.8 mmol/L 3.5-5.1 11/24/18 2:45am 11/24/18 3:18am Chloride Level 105 mmol/L 98-107 11/24/18 2:45am 11/24/18 3:18am Carbon Dioxide Level 23 mmol/L 22-29 11/24/18 2:45am 02/04 3:18am Calcium Level 9.3 mg/dL 8.3-10.5 11/24/18 2:45am 11/24/18 3:18am Serum Total Protein 7.0 g/dL 6.4-8.3 11/24/18 2:45am 07/0 02/04 3:18am Albumin 4.2 g/dL 3.5-5.0 11/24/18 2:45am 11/24/18 3:18am Total Bilirubin 0.7 mg/dL 0.2-1.2 11/24/18 2:45am 11/24/18 3:18am Aspartate Amino Transf (AST/SGOT) 16 U/L 5-34 2:45am 11/24/18 3:20am Alanine Aminotransferase (ALT/SGPT) 18 U/L 0-55 11/24/18 2:45am 11/24/18 3:20am Alkaline Phosphatase 75 U/L 40-150 11/24/18 2:45am 02/04 3:18am Lipase 13 U/L 8-78 11/24/18 2:45am 11/24/18 3:20am Urine Collection Type CLEAN CATCH 11/24/18 2:35a m 11/24/18 3:13am Urine Color YELLOW 11/24/18 2:35am 11/24/18 3:1 3am Urine Appearance CLEAR 11/24/18 2:35am 9 3:13am Urine Specific [place] 1.026 1.001-1.035 11/24/18 2:35 am 11/24/18 3:13am Urine pH 5.0 5.0 - 8.0 11/24/18 2:35am 11/24/18 3:13 am Urine Protein TRACE mg/dL H NEGATIVE 11/24/18 2:35am 11/24/18 3:13am Urine Glucose (UA) NEGATIVE mg/dL NEGATIVE 11/24/18 2:35am 02/04 3:13am Urine Ketones NEGATIVE NEGATIVE 11/24/18 2:35am 11/24/18 3:13am Urine Bilirubin NEGATIVE NEGATIVE 11/24/18 2:35am 3:13am Urine Urobilinogen NORMAL NORMAL 11/24/18 2:35am 11/24 3:13am Urine Nitrate NEGATIVE NEGATIVE 11/24/18 2:35am 11/24/18 3:13am Urine Blood NEGATIVE NEGATIVE 11/24/18 2:35am 11/24/18 3 :13am Urine Leukocyte Esterase NEGATIVE NEGATIVE 11/24/18 2:35 am 11/24/18 3:13am Urine WBC 0-1 /hpf 0-3 11/24/18 2:35am 11/24/18 3:13a m Urine RBC 1-3 /hpf 0-3 11/24/18 2:35am 11/24/18 3:13a m Urine Epithelial Cells FEW /lpf FEW 11/24/18 2:35am 0 11/24/18 3:13am Urine Bacteria NONE NOT PRESENT 11/24/18 2:35am 11/24 3:13am Urine Mucus PRESENT H NOT PRESENT 11/24/18 2:35am 11/24/18 3:13am Urine Amorphous Sediment PRESENT H NOT PRESENT 02/04 2:35am 11/24/18 3:13am Procedures No Known History of Procedures. Encounters Encounter Location Arrival/Admit Date Discharge/Depart Date Attending Provider Departed Emergency [facility] 11/24/18 2:01am 11/24/18 3: 34am Marie Dennis APRN Encounter Diagnosis Onset Date Viral illness
--- OUTSIDE RECORDS SUMMARY | 2019-09-20 01:03 | XMS REPORT | Continuity of Care Document ---
Author Author [facility] Organization [facility] Address [address] [place] [address] Phone tel Care Team Providers Care Carriage Operator Name Role Phone Patient States, PCP No [...] virus Active Insomnia Active Acid indigestion Active Panic attack Active Procedures No procedure information available. Relevant Diagnostic Tests and/or Laboratory Data No known relevant diagnostic tests and/or laboratory data. Health Concerns No known health concerns documented Advance Directives Advance Directive Response Recorded Date/Time No No April 17, 2019 4:28pm Chief Complaint and Reason for Visit Reason for Visit ER Encounters Encounter Location(s) Arrival/Admit Date Discharge/Depart Date Provider(s) Departed Emergency [facility] April 17, 2019 4:22 pm April 17, 2019 6:23pm Harley Perry MD Recent Diagnosis Onset Date Panic attack Assessments Diagnosis Onset Date Resolution Status Panic attack Active Family History Relationship Condition Age at Onset Recorded Date/Ti me FATHER No pertinent family history Unknown 2018 6:14pm MOTHER No pertinent family history Unknown 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 Payer Policy Id Coverage Id Subscriber's Name Subscriber Id Effect anthony Date Expiration Date [place] [id number] TAWNYA MARQUEZ Plan of Treatment Future Tests [...] Future medication information is unavailable Patient Instructions How to Throw Out Unused Drugs in the [place] Social History Smoking Status Status Date of Observation Current every day smoke April 17, 2019 5:50pm Assigned Sex Male Vital Signs Vital Reading Result Collection Date/Time BP Systolic 104 mm[Hg] April 17, 2019 6:19pm BP Diastolic 80 mm[Hg] April 17, 2019 6:19pm Body Temperature 98.5 [degF] April 17, 2019 6:19pm Respiratory rate 14 /min April 17, 2019 6:19pm Heart Rate 67 /min April 17, 2019 6:19pm Oxygen saturation by Pulse oximetry 95 % Norman sorto 2018 6:19pm Height 74.745544 [in_i] April 17, 2019 4:28pm Weight 170.00 [lb_av] April 17, 2019 4:28pm Weight 77.3 kg April 17, 2019 4:28pm BMI (Body Mass Index) 21.9 kg/m2 April 17 9 4:28pm
--- OUTSIDE RECORDS SUMMARY | 2019-09-20 01:03 | XMS REPORT | Continuity of Care Document ---
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 Role Phone Patient States, No PCP Unavailable Unavailable Insurance Providers Payer Name Policy Number Subscriber Name Relationship [facility] [id number] TAWNYA MARQUEZ SELF / SAME PATIENT Advance Directives Directive Response Recorded Date/Time Advance Directives: No 12/11/18 1:46am Chief Complaint and Reason for Visit Reason [...] 08/26 Active Viral illness Unknown 11/24/18 Active Common cold virus Unknown 12/11/18 Active Medications Past Home Medications Medication Directions Ordered Status Ibuprofen 600 Mg Tablet Tablet, 600 Mg Oral Four times daily for pain 06/05/18 Discontinued No Home Medications Ea Ea, Unknown Disc ontinued Omeprazole (Prilosec) 20 Mg Capsule Capsule, 20 Mg Oral Once leah ly 06/05/18 Discontinued Ondansetron (Zofran) 4 Mg Tablet Tablet, 4 Mg Oral Lin ry eight hours as needed as needed for nausea and vomiting 11/24/18 Discontinued Ondansetron (Zofran) 4 Mg Tablet Tablet, [...] discharge instructions. Plan of Care Discharge Date 12/11/18 Disposition HOME, SELF CARE, ASST LIVING Condition at Discharge Stable Instructions/Education Provided Viral Upper Respirator y Infection, Adult (DC) Prescriptions See Medications Section Referrals Patient States,No PCP - [facility] - Additional Instructions/Education -Treat your symptoms with OTC cough and cold medications such as Tylenol, Ibuprofen, Delsym, Robitussin, Mucinex DM -Warm salt water gargles for relief of s ore throat. -Please consider use of our [facility] which is open from 7am to 7pm, Friday through Friday or you PCP/CHM for non-emergent conditions such as cold symptoms and use ER for true emergent conditions. Some of your test results may not [...] worrisome symptoms. * Emergency Department phone number: [phone] MEDICAL RECORD If you need copies of your X-rays, call [phone]. If you need copies of your medical record, including lab results, a signed authorization for release of records will be required. A telephone call for release of Health Information is not allowed. BILLING Billing can sometimes be confusing and frustrating. To help avoid confusion in the future, please take a moment to acquaint yourself with the billing parties for services. SERVICE BILLING [employer] Emergency Room Services [facility] Physician Services [facility] X-rays (Interpretation) [facility] Patients will receive bills for services from the appropriate provider. If you have any questions about your [facility] bill, our staff will be happy to assist you. Please call [phone] and ask for the billing department. THANK YOU for choosing [facility] as your emergency care provider. Care Plan and Goals ~~Discharge Care Plan~~ Problem: Weakness, not feeling well, discomfort. Goal: Decreased weakness, discomfort, and patient feels better. Instructions: Drink plenty of fluids at least 6-8 glasses of water or other non carbonated drink. Get plenty of rest. Eat a balanced and healthy diet. Take medication(s) as directed. Follow up with primary care physician as directed. 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 Vital Signs Vital Reading Collection Date/Time Result Blood Pressure 12/11/18 2:14am 118/74 Blood Pressure Source 12/11/18 2:14am Supine Temperature 12/11/18 2:14am 98.3 F Temperature Source 12/11/18 2:14am Oral Respiratory Rate 12/11/18 2:14am 16 Pulse Rate 12/11/18 2:14am 67 Pulse Location 12/11/18 2:14am Machine Bedside Pulse Oximetry 12/11/18 2:14am 97 Results Laboratory Results Test Name Result Units [...] CLEAR 11/24/18 2:35am 9 3:13am Urine Specific Reynolds 1.026 1.001-1.035 11/24/18 2:35 am 11/24/18 3:13am [...] Date Discharge/Depart Date Attending Provider Departed Emergency [facility] 12/11/18 1:36am 12/11/18 2: 14am Jennifer Machuca APRN Departed Emergency [facility] 11/24/18 2:01am 11/24/18 3: 34am Marie Dennis APRN Encounter Diagnosis Onset Date Common cold virus
--- OUTSIDE RECORDS SUMMARY | 2019-09-20 01:04 | XMS REPORT | Continuity of Care Document ---
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 Phone Patient States, No PCP Unavailable Unavailable Insurance Providers Payer Name Policy Number Subscriber Name Relationship [facility] [id number] TAWNYA MARQUEZ SELF / SAME PATIENT Advance Directives Directive Response Recorded Date/Time Advance Directives: No 06/04/18 11:57pm Chief Complaint and Reason for Visit Reason [...] Active Chest wall pain Unknown 06/05/18 Active Medications Current Home Medications Medication Dose Units Route Directions Days/Qty Instructions Star t Date Ibuprofen 600 MG TABLET 600 MG ORAL Four times daily for cassidy n 30 06/05/18 Omeprazole (PriLOSEC) 20 MG CAPSULE 20 MG ORAL Once daily 3 0 Days 06/05/18 Ondansetron (Zofran) 4 MG TABLET 4 MG ORAL Three times per day as needed for nausea 10 06/05/18 Past Home Medications Medication Directions Ordered Status No Home Medications Ea Ea, Unknown Disc ontinued Oseltamivir Phosphate (Tamiflu) 75 Mg Cap Cap, 75 Mg Oral Twice daily 05/16/13 Discontinued Sulfamethoxazole/Trimethoprim (Bactrim D s) 800 Mg/160 Mg Tablet Tablet, 1 Tab Oral Twice daily 11/07/17 Discontinued Family History Relationship Name Date of Condition Age ( At Onset ) Cause of Age ( At ) Age Gender Recorded Date/Time FATHER No pertinent family history M [birth year]1937 MOTHER No pertinent family history F [birth year]17/[birth year]1937 Social History Query Response Start Date Stop Date Smoking status: Current every day smoker Hospital Discharge Instructions No hospital discharge instructions. Plan of Care Discharge Date 06/05/18 Disposition HOME, SELF CARE, ASST LIVING Condition at Discharge Stable Instructions/Education Provided Chest Pain Forms Provided Work Release Prescriptions See Medications Section Referrals Patient States,No PCP - Additional Instructions/Education 1. Omeprazole daily for the next 30 days 2. Ibuprofen as needed for pain 3. Zofran as needed for nausea 4. Push fluids 5. Please order picker paperwork at [facility] to establish care Some of your test results may not [...] worrisome symptoms. * Emergency Department phone number: [phone] MEDICAL RECORD If you need copies of your X-rays, call [phone]. If you need copies of your medical [...] SERVICE BILLING [employer] Emergency Room Services [facility] Physician Services [facility] X-rays (Interpretation) [facility] Patients will receive bills for services from the appropriate provider. If you have any questions about your [facility] bill, our staff will be happy to assist you. Please call [phone] and ask for the billing department. THANK YOU for choosing [facility] as your emergency care provider. Care Plan and Goals ~~Discharge Care Plan~~ Problem: Chest Wall Pain Goal: Decreased level of pain. Return to usual activities. Instructions: Take medication(s) as directed; follow up with primary care physician as directed; follow patient home care instructions. Apply ice or heat to site for comfort. 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 September 17, 2016 7:39pm Allergies, Adverse Reactions, Alerts Allergen Type Severity Reaction Status Last Updated No Known Drug Allergies Allergy Unknown Active 0 06/04/18 Immunizations Name Date Given Type Tetanus Unknown Historical Vital Signs Vital Reading Collection Date/Time Result Blood Pressure 06/04/18 11:57pm 121/82 Blood Pressure Source 06/04/18 11:57pm Sitting Temperature 06/04/18 11:57pm 98.0 F Temperature Source 06/04/18 11:57pm Oral Respiratory Rate 06/05/18 1:36am 20 Pulse Rate 06/04/18 11:57pm 76 Pulse Location 06/04/18 11:57pm Machine Bedside Pulse Oximetry 06/04/18 11:57pm 98 Height 06/04/18 11:57pm 6 ft 2 in Height 06/04/18 11:57pm 187.96 cm Weight 06/04/18 11:57pm 180 lb Weight 06/04/18 11:57pm 81.8 kg Body Mass Index 06/04/18 11:57pm 23.2 kg/m2 Results No known relevant diagnostic tests, laboratory data and/or discharge summary. Procedures No Known History of Procedures. Encounters Encounter Location Arrival/Admit Date Discharge/Depart Date Attending Provider Departed Emergency [facility] 06/04/18 10:45pm 06/05/18 1 :36am Jennifer Machuca APRN Encounter Diagnosis Onset Date Chest wall pain
--- OUTSIDE RECORDS SUMMARY | 2019-09-20 01:04 | XMS REPORT | Continuity of Care Document ---
Author Author [facility] [employer] Address [address] [place] [address] Phone Unavailable Care Team Providers Care Pharmacy Services Director Name Role Phone Patient States, No PCP Unavailable Unavailable Insurance Providers Payer Name Policy Number Subscriber Name Relationship [facility] [id number] TAWNYA MARQUEZ SELF / SAME PATIENT Advance Directives Directive Response Recorded Date/Time Advance Directives: No 03/10/17 3:44pm Chief Complaint and Reason for Visit Reason for Visit Problems Active Medical Problems Problem Onset Date Recorded Date Status Chronic pain Unknown 09/19/13 Active Pain due to dental caries Unknown 10/10/16 Active Infected dental caries Unknown 10/12/16 Active Abdominal pain Unknown 10/13/16 Active Vertigo Unknown 12/03/16 Active Sinusitis accessory Unknown 12/03/16 Active Heart palpitations Unknown 12/28/16 Active Chest pain Unknown 03/05/17 Active Abdominal discomfort Unknown 03/10/17 Active Medications Current Home Medications Medication Dose Units Route Directions Days/Qty Instructions t ALPRAZolam (Xanax) 0.5 MG TABLET 0.5 MG By Mouth as needed for Anxiety ALPRAZolam (Xanax) 0.5 MG TABLET 0.5 MG By Mouth Twice daily as needed for anxiety 10 03/05/17 Omeprazole (PriLOSEC) 20 MG CAPSULE 20 MG By Mouth Once a day Promethazine (Phenergan) 25 MG TABLET 25 MG By Mouth Every six hours as needed as needed for Nausea 10 03/05/17 Venlafaxine (Effexor) 75 MG TABLET 75 MG By Mouth Once a day raNITIdine (Zantac (Capsule)) 150 MG CAPSULE 150 MG By Mouth On ce a day Past Home Medications Medication Directions Ordered Status Amoxicillin (Amoxil*) 500 Mg Capsule Capsule, 500 Mg By Mout h Three times daily 10/10/16 Discontinued Amoxicillin/Clavulanate K (Augmentin) 87 5 Mg/125 Mg Tablet Tablet, 875 Mg By Mouth Twice daily with food 12/03/16 Discontinued Hydrocodone/Acetaminophen ([place]) 5 Mg/325 Mg Tablet T ablet, 1 Tab By Mouth Every six hours as needed as needed for Pain 10/12/16 Discontin ued Hydrocodone/Acetaminophen ([place]) 5 Mg/325 Mg Tablet T ablet, 1 Tab By Mouth Every 4-6 hours as needed as needed for Pain 10/10/16 Discontin ued Meclizine (Antivert) 25 Mg Tablet Tablet, 25 Mg By Jenny th Three times daily as needed for dizziness 12/03/16 Discontinued No Home Medications , Unknown Disconti nued Promethazine (Phenergan) 25 Mg Tablet Tablet, 25 Mg By Mouth Every six hours as needed as needed for Nausea 12/03/16 Discontinued Diazepam (Valium) 5 Mg Tablet Tablet, 5 Mg By Mouth Q 8 HR as needed for dizziness 12/03/16 Discontinued Social History Query Response Start Date Stop Date Smoking status: Current every day smoker Hospital Discharge Instructions No hospital discharge instructions. Plan of Care Discharge Date 03/10/17 Disposition 01-HOME, SELF-CARE,ASST [facility]RISTIAN NG Condition at Discharge Stable Instructions/Education Provided Stomach Ache and Stoma ch Upset Prescriptions See Medications Section Referrals Ken Kent MD - Call office to schedule Additional Instructions/Education -- Return to [facility] with your stool sample for evaluation. -- Call the office of your assigned prov ider to make an appointment for recheck and follow up care. Some of your test results may not [...] worrisome symptoms. * Emergency Department phone number: [phone] MEDICAL RECORD If you need copies of your X-rays, call [phone]. If you need copies of your medical [...] SERVICE BILLING [employer] [facility] Physician Services [phone] X-rays [facility] Patients will receive bills for services from the appropriate provider. If you have any questions about your [facility] bill, our staff will be happy to assist you. Please call [phone] and ask for the billing department. THANK YOU for choosing [facility] as your emergency care provider. Care Plan and Goals ~~Discharge Care Plan~~ Problem: Abdominal pain Goal: Decreased level of pain. Return to usual activities. Instructions: Take medication as directed; follow up with primary care physician as directed; follow patient home care instructions. Functional Status Query Response Date Recorded Steady Gait: Y December 03, 2016 0:00am Allergies, Adverse Reactions, Alerts Allergen Type Severity Reaction Status Last Updated No Known Drug Allergies Allergy Unknown Active 1 Immunizations No Known History of Immunizations. Vital Signs Vital Reading Collection Date/Time Result Blood Pressure 03/10/17 3:44pm 121/78 Blood Pressure Source 03/10/17 3:44pm Sitting Temperature 03/10/17 3:44pm 98.9 F Temperature Source 03/10/17 3:44pm Oral Respiratory Rate 03/10/17 4:39pm 18 Pulse Rate 03/10/17 3:44pm 86 Pulse Location 03/10/17 3:44pm Pulse Oximetry Bedside Pulse Oximetry 03/10/17 3:44pm 98 Height 03/10/17 3:44pm 6 ft 2.02 in Height 03/10/17 3:44pm 188 cm Weight 03/10/17 3:44pm 175 lb Weight 03/10/17 3:44pm 79.5 kg Body Mass Index 03/10/17 3:44pm 22.5 kg/m2 Results Laboratory Results Test Name Result Units Flags Reference Collection Date/Time Result Date/Time Comments Glucose Level 94 mg/dL 74-106 03/05/17 4:28pm 03/05/17 5 :05pm Blood Urea Nitrogen 8 mg/dL L -03/05/17 4:28pm 02/16 01/02 5:05pm Creatinine 0.88 mg/dL 0.66-1.25 03/05/17 4:28pm 03/05/17 5: 05pm Estimated GFR () 128 7 4:28pm 03/05/17 5:05pm Estimated GFR (Non- 106 02/16 01/02 4:28pm 03/05/17 5:05pm eGFR Interpretation: Chronic Kidney Disease = CKD [...] body size, muscle mass, or nutritional status. Sodium Level 140 mmol/L 137-145 03/05/17 4:28pm 03/05/17 5: 05pm Potassium Level 4.0 mmol/L 3.4-5.0 03/05/17 4:28pm 03/05/17 5:05pm Chloride Level 105 mmol/L 98-107 03/05/17 4:28pm 03/05/17 5:05pm Carbon Dioxide Level 23 mmol/L 22-30 03/05/17 4:28pm 5:05pm Anion Gap 11 mmol/L 7-16 03/05/17 4:2803/05/17 5:05p m Calcium Level 9.8 mg/dL 8.4-10.2 03/05/17 4:28pm 03/05/17 5:05pm Calcium Adjusted for Albumin 9.5 mg/dL 8.4-10.2 1 4:28pm 03/05/17 5:05pm Serum Total Protein 7.6 gm/dL 6.4-8.2 03/05/17 4:28pm 02/16 01/02 5:05pm Albumin 4.4 gm/dL 3.5-5.0 03/05/17 4:28pm 03/05/17 5:05pm Total Bilirubin 0.7 mg/dL 0.0-1.0 03/05/17 4:28pm 03/05/17 5:05pm Aspartate Amino Transf (AST/SGOT) 22 U/L 15-37 03/05/17 4:28pm 03/05/17 5:05pm Alanine Aminotransferase (ALT/SGPT) 30 U/L 21-7 2 03/05/17 4:28pm 03/05/17 5:05pm Alkaline Phosphatase 73 U/L 50-136 03/05/17 4:28pm 5:05pm White Blood Count 9.3 K/mm3 4.8-10.8 03/05/17 4:25pm 03/05 4:46pm Red Blood Count 5.09 M/mm3 4.20-5.60 03/05/17 4:25pm 4:46pm Hemoglobin 15.2 g/dl 13.5-18.0 03/05/17 4:25pm 03/05/17 4: 46pm Hematocrit 44.5 % 42.0-52.0 03/05/17 4:25pm 03/05/17 4: 46pm Mean Corpuscular Volume 87 fl 80.0-100.0 03/05/17 4:25 pm 03/05/17 4:46pm Mean Corpuscular Hemoglobin 30 pg 27.0-31.0 03/05/17 4 :25pm 03/05/17 4:46pm Mean Corpuscular Hemoglobin Concent 34 g/dl 33.0 -37.0 03/05/17 4:25pm 03/05/17 4:46pm Red Cell Distribution Width 12.2 % 11.5-14.5 03/05/17 4 :25pm 03/05/17 4:46pm Platelet Count 302 K/mm3 130-400 03/05/17 4:25pm 03/05/17 4:46pm Mean Platelet Volume 9.3 fl 7.4-10.4 03/05/17 4:25pm 4:46pm Granulocytes (%) 68.6 % 42.2-75.2 03/05/17 4:25pm 03/05 4:46pm Lymphocytes % 22.2 % 20.0-51.0 03/05/17 4:25pm 03/05/17 4:46pm Monocytes % 7.6 % 1.7-9.3 03/05/17 4:25pm 03/05/17 4:4 6pm Eosinophils % 0.9 % 0-4.0 03/05/17 4:25pm 03/05/17 4 :46pm Basophils % 0.5 % 0.0-2.0 03/05/17 4:25pm 03/05/17 4:4 6pm Granulocytes # 6.4 1.4-6.5 03/05/17 4:25pm 03/05/17 4:46pm Lymphocytes # 2.1 1.2-3.4 03/05/17 4:25pm 03/05/17 4 :46pm Monocytes # 0.7 H 0.1-0.6 03/05/17 4:25pm 03/05/17 4:4 6pm Eosinophils # 0.1 0.0-0.7 03/05/17 4:25pm 03/05/17 4 :46pm Basophils # 0.1 0.0-0.2 03/05/17 4:25pm 03/05/17 4:4 6pm Troponin I < 0.012 ng/mL 0.000-0.034 03/05/17 4:25pm 03/05/17 5:24pm Procedures No Known History of Procedures. Encounters Encounter Location Arrival/Admit Date Discharge/Depart Date Attending Provider Departed Emergency [facility] 03/10/17 3:43p m 03/10/17 4:40pm Pa Tolbert MD Departed Emergency [facility] 03/05/17 4:12p m 03/05/17 6:34pm Cole Rowley MD Registered Clinical [facility] 03/05/17 3:39pm Cole Moore MD Encounter Diagnosis Onset Date Abdominal discomfort
--- OUTSIDE RECORDS SUMMARY | 2019-09-20 01:04 | XMS REPORT | Continuity of Care Document ---
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 Plan of Care Discharge Date 06/24/18 Disposition HOME, SELF CARE, ASST LIVING Condition at Discharge Stable Instructions/Education Provided Contusion (DC) Prescriptions See Medications Section Referrals Patient States,No PCP - Additional Instructions/Education Rest, Ice, Brent, Ibup rofen and Tylenol as needed. Some of your test results may not [...] worrisome symptoms. * Emergency Department phone number: [phone] MEDICAL RECORD If you need copies of your X-rays, call [phone]. If you need copies of your medical record, including lab results, a signed authorization for release of records will be required. A telephone call for release of Health Information is not allowed. BILLING Billing can sometimes be confusing and frustrating. To help avoid confusion in the future, please take a moment to acquaint yourself with the billing parties for services. SERVICE BILLING [employer] Emergency Room Services [facility] Physician Services [facility] X-rays (Interpretation) [facility] Patients will receive bills for services from the appropriate provider. If you have any questions about your [facility] bill, our staff will be happy to assist you. Please call [phone] and ask for the billing department. THANK YOU for choosing [facility] as your emergency care provider. Care Plan and Goals ~~Discharge Care Plan~~ Problem: Pain Goal: Decreased level of pain. Return to usual activities. Instructions: Take medication(s) as directed; follow up with primary care physician as directed; follow patient home care instructions. Apply ice or heat to site for comfort. 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 Vital Signs Vital Reading Collection Date/Time Result Blood Pressure 06/24/18 2:20am 123/79 Blood Pressure Source 06/24/18 2:20am Sitting Temperature 06/24/18 2:20am 98.6 F Temperature Source 06/24/18 2:20am Oral Respiratory Rate 06/24/18 2:20am 16 Pulse Rate 06/24/18 2:20am 76 Pulse Location 06/24/18 2:20am Machine Bedside Pulse Oximetry 06/24/18 2:20am 97 Height 06/04/18 11:57pm 6 ft 2 in Height 06/04/18 11:57pm 187.96 cm Weight 06/24/18 2:20am 175 lb Weight 06/24/18 2:20am 79.5 kg Body Mass Index 06/04/18 11:57pm 23.2 kg/m2 Results No known relevant diagnostic tests, laboratory data and/or discharge summary. Procedures No Known History of Procedures. Encounters Encounter Location Arrival/Admit Date Discharge/Depart Date Attending Provider Departed Emergency [facility] 06/24/18 2:05am 06/24/18 2: 32am Jennifer Machuca APRN Departed Emergency [facility] 06/04/18 10:45pm 06/05/18 1 :36am Jennifer Machuca APRN Encounter Diagnosis Onset Date Contusion of left knee
--- OUTSIDE RECORDS SUMMARY | 2019-09-20 01:04 | XMS REPORT | Continuity of Care Document ---
Author Author [facility]. Organization [facility]. Address [address] [place] [address] Phone Unavailable Care Team Providers Care Income Tax Advisor Name Role Phone Patient States, No PCP Unavailable Unavailable Insurance Providers Payer Name Policy Number Subscriber Name Relationship [facility] [id number] TAWNYA MARQUEZ SELF / SAME PATIENT Advance Directives Directive Response Recorded Date/Time Advance Directives: No 01/23/18 4:47pm Chief Complaint and Reason for Visit Reason [...] 03/05/17 Active Abdominal discomfort Unknown 03/10/17 Active Anxiety Unknown 09/27/17 Active Nausea and vomiting Unknown 01/23/18 Active Diarrhea Unknown 01/23/18 Active Medications Current Home Medications Medication Dose Units Route Directions Days/Qty Instructions Star t Date ALPRAZolam (Xanax) 0.5 MG TABLET 0.5 MG By Mouth Twice daily as needed for anxiety 10 03/05/17 Ondansetron (Zofran ODT) 4 MG ODT 4 MG By Mouth Q 6 HRS PRN 1 4 01/23/18 PARoxetine HCl (Paxil) 20 MG TABLET 20 MG By Mouth Once a day Past Home Medications Medication Directions Ordered Status Alprazolam (Xanax) 0.5 Mg Tablet Tablet, 0.5 Mg By Mouth as needed for Anxiety Unknown Discontinued Amoxicillin (Amoxil*) 500 Mg Capsule Capsule, 500 Mg By Mout h Three times daily 10/10/16 Discontinued Amoxicillin/Clavulanate K (Augmentin) 87 5 Mg/125 Mg Tablet Tablet, 875 Mg By Mouth Twice daily with food 12/03/16 Discontinued Hydrocodone/Acetaminophen ([place]) 5 Mg/325 Mg Tablet T ablet, 1 Tab By Mouth Every six hours as needed as needed for Pain 10/12/16 Discontin ued Hydrocodone/Acetaminophen ([place]) 5 Mg/325 Mg Tablet T ablet, 1 Tab By Mouth Every 4-6 hours as needed as needed for Pain 10/10/16 Discontin ued Meclizine (Antivert) 25 Mg Tablet Tablet, 25 Mg By Jenny th Three times daily as needed for dizziness 12/03/16 Discontinued No Home Medications , Unknown Disconti nued Omeprazole (Prilosec) 20 Mg Capsule Capsule, 20 Mg By Mouth Once a day Unknown Discontinued Promethazine (Phenergan) 25 Mg Tablet Tablet, 25 Mg By Mouth Every six hours as needed as needed for Nausea 03/05/17 Discontinued Promethazine (Phenergan) 25 Mg Tablet Tablet, 25 Mg By Mouth Every six hours as needed as needed for Nausea 12/03/16 Discontinued Venlafaxine (Effexor) 75 Mg Tablet Tablet, 75 Mg By Mouth Once a day Unknown Discontinued Diazepam (Valium) 5 Mg Tablet Tablet, 5 Mg By Mouth Q 8 HR as needed for dizziness 12/03/16 Discontinued Ranitidine (Zantac (Capsule)) 150 Mg Capsule Capsule, 150 Mg By Mouth Once a day Unknown Discontinued Social History Query Response Start Date Stop Date Smoking status: Current every day smoker Hospital Discharge Instructions No hospital discharge instructions. Plan of Care Discharge Date 01/23/18 Disposition 01-HOME, SELF-CARE,ASST [facility] Condition at Discharge Stable Instructions/Education Provided Nausea and Vomiting, A dult (DC) Forms Provided Seen In ED Work Release Prescriptions See Medications Section Referrals Patient States,No PCP - [facility] - Call office to schedule Lashaun Lugo [facility] [place] - Call office to schedule Additional Instructions/Education 1. take zofran as ne eded 2. continue to push fluids to prevent de hydration 3. follow up with primary care as needed Some of your test results may not [...] worrisome symptoms. * Emergency Department phone number: [phone] MEDICAL RECORD If you need copies of your X-rays, call [phone]. If you need copies of your medical record, including lab results, a signed authorization for release of records will be required. A telephone call for release of Health Information is not allowed. BILLING Billing can sometimes be confusing and frustrating. To help avoid confusion in the future, please take a moment to acquaint yourself with the billing parties for services. SERVICE BILLING [employer] [facility]. ED Physician Services [phone] X-rays [place] [facility] Patients will receive bills for services from the appropriate provider. If you have any questions about your [facility] bill, our staff will be happy to assist you. Please call [phone] and ask for the billing department. THANK YOU for choosing [facility] as your emergency care provider. Care Plan [...] Known Drug Allergies Allergy Unknown Active 0 01/23/18 Immunizations No Known History of Immunizations. Vital Signs Vital Reading Collection Date/Time Result Blood Pressure 01/23/18 4:47pm 117/68 Blood Pressure Source 01/23/18 4:47pm Sitting Temperature 01/23/18 4:47pm 99.0 F Temperature Source 01/23/18 4:47pm Oral Respiratory Rate 01/23/18 4:47pm 18 Pulse Rate 01/23/18 7:34pm 68 Pulse Location 01/23/18 7:34pm Pulse Oximetry Bedside Pulse Oximetry 01/23/18 7:34pm 98 Height 01/23/18 4:47pm 0 ft 0 in Height 01/23/18 4:47pm 0 cm Weight 01/23/18 4:47pm 175 lb Weight 01/23/18 4:47pm 79.5 kg Body Mass Index 01/23/18 4:47pm kg/m2 Results Laboratory Results Test Name Result Units Flags Reference Collection Date/Time Result Date/Time Comments Urine Collection Type RANDOM VOIDED 01/23/18 6:2 3pm 01/23/18 6:26pm Not suitable for Culture Urine Color Yellow 01/23/18 6:23pm 01/23/18 6:5 2pm Urine Appearance Cloudy 01/23/18 6:23pm 8 6:52pm Urine Specific [place] 1.015 1.005-1.035 01/23/18 6:23 pm 01/23/18 6:52pm Urine pH 7 5-8 01/23/18 6:23pm 01/23/18 6:52pm Urine Protein Negative NEGATIVE 01/23/18 6:23pm 01/23/18 6:52pm Urine Glucose Negative NEGATIVE 01/23/18 6:23pm 01/23/18 6:52pm Urine Ketones Negative NEGATIVE 01/23/18 6:23pm 01/23/18 6:52pm Urine Bilirubin Negative NEGATIVE 01/23/18 6:23pm 6:52pm Urine Urobilinogen Negative mg/dL NEGATIVE 01/23/18 6:23pm 12/03 6:52pm Urine Nitrate Negative NEGATIVE 01/23/18 6:23pm 01/23/18 6:52pm Urine Blood Negative NEGATIVE 01/23/18 6:23pm 01/23/18 6 :52pm Urine Leukocyte Esterase Negative NEGATIVE 01/23/18 6:23 pm 01/23/18 6:52pm Urine WBC None Seen /hpf 01/23/18 6:23pm 01/23/18 6:5 2pm Urine RBC 0-2 /hpf 01/23/18 6:23pm 01/23/18 6:52p m Urine Squamous Epithelial Cells None Seen /hpf 01/23/18 6:23pm 01/23/18 6:52pm Urine Amorphous Crystals Present /uL 01/23/18 6:23pm 01/23/18 6:52pm Urine Bacteria None Seen /hpf 01/23/18 6:23pm 8 6:52pm Urine Yeast (Budding) Present /hpf 01/23/18 6:23pm 6:52pm White Blood Count 6.5 k/mm3 4.8-10.8 01/23/18 5:52pm 01/23 6:10pm Red Blood Count 5.10 M/mm3 4.20-5.60 01/23/18 5:52pm 6:10pm Hemoglobin 14.8 g/dl 13.5-18.0 01/23/18 5:52pm 01/23/18 6: 10pm Hematocrit 44.6 % 42.0-52.0 01/23/18 5:52pm 01/23/18 6: 10pm Mean Corpuscular Volume 88 fl 80.0-100.0 01/23/18 5:52 pm 01/23/18 6:10pm Mean Corpuscular Hemoglobin 29 pg 27.0-31.0 01/23/18 5 :52pm 01/23/18 6:10pm Mean Corpuscular Hemoglobin Concent 33 g/dl 33.0 -37.0 01/23/18 5:52pm 01/23/18 6:10pm Red Cell Distribution Width 12.6 % 11.5-14.5 01/23/18 5 :52pm 01/23/18 6:10pm Platelet Count 270 K/mm3 130-400 01/23/18 5:52pm 01/23/18 6:10pm Mean Platelet Volume 9.0 fl 7.4-10.4 01/23/18 5:52pm 6:10pm Granulocytes (%) 51.6 % 42.2-75.2 01/23/18 5:52pm 01/23 6:10pm Lymphocytes % 34.3 % 20.0-51.0 01/23/18 5:52pm 01/23/18 6:10pm Monocytes % 10.3 % H 1.7-9.3 01/23/18 5:52pm 01/23/18 6:1 0pm Eosinophils % 2.6 % 0-4.0 01/23/18 5:52pm 01/23/18 6 :10pm Basophils % 0.9 % 0.0-2.0 01/23/18 5:52pm 01/23/18 6:1 0pm Granulocytes # 3.4 1.4-6.5 01/23/18 5:52pm 01/23/18 6:10pm Lymphocytes # 2.2 1.2-3.4 01/23/18 5:52pm 01/23/18 6 :10pm Monocytes # 0.7 H 0.1-0.6 01/23/18 5:52pm 01/23/18 6:1 0pm Eosinophils # 0.2 0.0-0.7 01/23/18 5:52pm 01/23/18 6 :10pm Basophils # 0.1 0.0-0.2 01/23/18 5:52pm 01/23/18 6:1 0pm Glucose Level 87 mg/dL 74-106 01/23/18 5:52pm 01/23/18 6 :15pm Blood Urea Nitrogen 11 mg/dL 9-20 01/23/18 5:52pm 09/0 12/03 6:15pm Creatinine 0.78 mg/dL 0.66-1.25 01/23/18 5:52pm 01/23/18 6: 15pm Estimated GFR () 145 09 8 5:52pm 01/23/18 6:15pm Estimated GFR (Non- 120 0912/03 5:52pm 01/23/18 6:15pm eGFR Interpretation: Chronic Kidney Disease = CKD [...] muscle mass, or nutritional status. Sodium Level 138 mmol/L 137-145 01/23/18 5:52pm 01/23/18 6: 15pm Potassium Level 4.4 mmol/L 3.4-5.0 01/23/18 5:52pm 01/23/18 6:15pm Chloride Level 101 mmol/L 98-107 01/23/18 5:52pm 01/23/18 6:15pm Carbon Dioxide Level 28 mmol/L 22-30 01/23/18 5:52pm 12/03 6:15pm Anion Gap 9 mmol/L 7-16 01/23/18 5:52pm 01/23/18 6:15p m Calcium Level 9.7 mg/dL 8.4-10.2 01/23/18 5:52pm 01/23/18 6:15pm Calcium Adjusted for Albumin 9.8 mg/dL 8.4-10.2 0 01/23/18 5:52pm 01/23/18 6:15pm Serum Total Protein 7.1 gm/dL 6.4-8.2 01/23/18 5:52pm 12/03 6:15pm Albumin 3.9 gm/dL 3.5-5.0 01/23/18 5:52pm 01/23/18 6:15pm Total Bilirubin 0.4 mg/dL 0.0-1.0 01/23/18 5:52pm 01/23/18 6:15pm Aspartate Amino Transf (AST/SGOT) 25 U/L 15-37 01/23/18 5:52pm 01/23/18 6:15pm Alanine Aminotransferase (ALT/SGPT) 36 U/L 21-7 2 01/23/18 5:52pm 01/23/18 6:15pm Alkaline Phosphatase 55 U/L 50-136 01/23/18 5:52pm 12/03 6:15pm Lipase 55 U/L 23-300 01/23/18 5:52pm 01/23/18 6:15pm C-Reactive Protein < 0.5 mg/dL 0.0-0.9 01/23/18 5:52pm 01/23 6:15pm Procedures No Known History of Procedures. Encounters Encounter Location Arrival/Admit Date Discharge/Depart Date Attending Provider Departed Emergency [facility] 01/23/18 4:22p 01/23/18 7:34pm Cole Rowley MD Encounter Diagnosis Onset Date Nausea and vomiting Diarrhea
--- OUTSIDE RECORDS SUMMARY | 2019-09-20 01:04 | XMS REPORT | Continuity of Care Document ---
Author Author [facility] Organization [facility] Address [address] [place] [address] Phone Unavailable Care Team Providers Care Force Variation Equipment Tender Name Role Phone Patient States, No PCP Unavailable Unavailable Insurance Providers Payer Name Policy Number Subscriber Name Relationship [facility] [id number] TAWNYA MARQUEZ SELF / SAME PATIENT Advance Directives Directive Response Recorded Date/Time Advance Directives: No 05/01/18 7:35pm Chief Complaint and Reason for Visit Reason [...] GERD (gastroesophageal reflux disease) Unknown 05/01/18 Active Medications Past Home Medications Medication Directions [...] discharge instructions. Plan of Care Discharge Date 05/01/18 Disposition HOME, SELF CARE, ASST LIVING Condition at Discharge Stable Instructions/Education Provided Sore Throat, Adult (DC ) Viral Pharyngitis (DC) Prescriptions See Medications Section Referrals Patient States,No PCP - Additional Instructions/Education Do not eat or drink for at least 2 hours before lieing down. Avoid carbonated beverages, chocolate, alcohol, caffeine and nicotine as these all can worsen reflux. Begin taking omeprazole 20mg twice a day for a few days then once a day for a month (or 6 weeeks.) if you worsen or develop new symptoms or fever be seen in the walkin-clinic. Some of your test results may not [...] worrisome symptoms. * Emergency Department phone number: [phone] MEDICAL RECORD If you need copies of your X-rays, call [phone]. If you need copies of your medical [...] SERVICE BILLING [employer] Emergency Room Services [facility] Physician Services [facility] X-rays (Interpretation) [facility] Patients will receive bills for services from the appropriate provider. If you have any questions about your [facility] bill, our staff will be happy to assist you. Please call [phone] and ask for the billing department. THANK YOU for choosing [facility] as your emergency care provider. Care Plan and Goals ~~Discharge Care Plan~~ Problem: Sore throat Goal: Pain decreased from sore throat. Instructions: Gargle with warm salt water to help reduce swelling and pain. Drink plenty of fluids. Hot fluids, such as tea or soup, may help decrease throat irritation. Take medication(s) as directed. Follow up with primary care physician as directed. 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: Y September 17, 2016 7:39pm Allergies, Adverse Reactions, Alerts Allergen Type Severity Reaction Status Last Updated No Known Drug Allergies Allergy Unknown Active 1 07/02/17 Immunizations Name Date Given Type Tetanus Unknown Historical Vital Signs Vital Reading Collection Date/Time Result Blood Pressure 05/01/18 8:30pm 110/76 Blood Pressure Source 05/01/18 8:30pm Sitting Temperature 05/01/18 8:30pm 98.4 F Temperature Source 05/01/18 8:30pm Oral Respiratory Rate 05/01/18 8:30pm 18 Pulse Rate 05/01/18 8:30pm 94 Pulse Location 05/01/18 8:30pm Pulse Oximetry Bedside Pulse Oximetry 05/01/18 8:30pm 98 Height 05/01/18 7:35pm 6 ft 2 in Height 05/01/18 7:35pm 187.96 cm Weight 05/01/18 7:35pm 175 lb Weight 05/01/18 7:35pm 79.5 kg Body Mass Index 05/01/18 7:35pm 22.5 kg/m2 Results Laboratory Results Test Name Result Units Flags Reference Collection Date/Time Result Date/Time Comments Streptococcus Screen NEGATIVE NEGATIVE 05/01/18 8:10pm 1 07/02/17 8:24pm Procedures No Known History of Procedures. Encounters Encounter Location Arrival/Admit Date Discharge/Depart Date Attending Provider Departed Emergency [facility] 05/01/18 7:32pm 05/01/18 8: 30pm Harley Perry MD Departed Emergency [facility] 04/29/18 10:45am 04/29/18 1 2:48pm Marie Dennis APRN Encounter Diagnosis Onset Date Pharyngitis GERD (gastroesophageal reflux disease)
--- OUTSIDE RECORDS SUMMARY | 2019-09-20 01:04 | XMS REPORT | Continuity of Care Document ---
Author Author [facility] Organization [facility] Address [address] [place] [address] Phone Unavailable Care Team Providers Care Loss Control Manager Name Role Phone Patient States, No PCP Unavailable Unavailable Insurance Providers Payer Name Policy Number Subscriber Name Relationship [facility] [id number] TAWNYA MARQUEZ SELF / SAME PATIENT Advance Directives Directive Response Recorded Date/Time Advance Directives: No 04/29/18 10:52am Chief Complaint and Reason for Visit Reason [...] Unknown 04/29/18 Active Fall Unknown 04/29/18 Active Medications Past Home Medications Medication Directions [...] discharge instructions. Plan of Care Discharge Date 04/29/18 Disposition HOME, SELF CARE, ASST LIVING Condition at Discharge Stable Instructions/Education Provided Shoulder Pain (DC) Prescriptions See Medications Section Referrals Patient States,No PCP - [facility] - One Week Additional Instructions/Education Wear sling for comfo rt and pain control. Ibuprofen 600mg every 6-8 hours as needed for pain. Take with food. No drinking alcohol with Ibuprofen. Take Tylenol over the counter as directed and as needed for pain. Ice to area 20 minutes and 20 minutes off first 48 hours. After that apply heat. If worse, or concerns return to ER or go to Walk In Clinic. Some of your test results may not [...] worrisome symptoms. * Emergency Department phone number: [phone] MEDICAL RECORD If you need copies of your X-rays, call [phone]. If you need copies of your medical [...] services. SERVICE BILLING [employer]AT Emergency Room Services [facility] Physician Services [facility] X-rays (Interpretation) [facility] Patients will receive bills for services from the appropriate provider. If you have any questions about your [facility] bill, our staff will be happy to assist you. Please call [phone] and ask for the billing department. THANK YOU for choosing [facility] as your emergency care provider. Care Plan and Goals ~~Discharge Care Plan~~ Problem: Sprain, strain or fracture of extremity Goal: Extremity will be pink and warm to touch, with good movement of fingers or toes. Instructions: Apply ice bag and elevate extremity above the level of your heart. Monitor extremity for pink color to fingers or toes and movement. Call your physician if extremity becomes blue in color or cool to touch. Some swelling of fingers or toes is normal. 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 Vital Signs Vital Reading Collection Date/Time Result Blood Pressure 04/29/18 1:29pm 100/69 Blood Pressure Source 04/29/18 1:29pm Sitting Temperature 04/29/18 10:52am 98.6 F Temperature Source 04/29/18 10:52am Oral Respiratory Rate 04/29/18 1:29pm 16 Pulse Rate 04/29/18 1:29pm 67 Pulse Location 04/29/18 1:29pm Machine Bedside Pulse Oximetry 04/29/18 1:29pm 97 Height 04/29/18 10:52am 6 ft 2.02 in Height 04/29/18 10:52am 188 cm Weight 04/29/18 10:52am 180 lb Weight 04/29/18 10:52am 81.8 kg Body Mass Index 04/29/18 10:52am 23.1 kg/m2 Results No known relevant diagnostic tests, laboratory data and/or discharge summary. Procedures No Known History of Procedures. Encounters Encounter Location Arrival/Admit Date Discharge/Depart Date Attending Provider Departed Emergency [facility] 04/29/18 10:45am 04/29/18 1 2:48pm Marie Dennis APRN Encounter Diagnosis Onset Date Right shoulder pain Fall
--- OUTSIDE RECORDS SUMMARY | 2019-09-20 01:04 | XMS REPORT | Continuity of Care Document ---
Author Author [facility] Organization [facility] 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 [id number] TAWNYA MARQUEZ SELF / SAME PATIENT Advance Directives Directive Response Recorded Date/Time Advance Directives: No 03/05/17 4:16pm Chief Complaint and Reason for Visit Reason for Visit Problems Active Medical Problems Problem Onset Date Recorded Date Status Chronic pain Unknown 09/19/13 Active Pain due to dental caries Unknown 10/10/16 Active Infected dental caries Unknown 10/12/16 Active Abdominal pain Unknown 10/13/16 Active Vertigo Unknown 12/03/16 Active Sinusitis accessory Unknown 12/03/16 Active Heart palpitations Unknown 12/28/16 Active Chest pain Unknown 03/05/17 Active Medications Current Home Medications Medication Dose [...] Twice daily with food 12/03/16 Discontinued Hydrocodone/Acetaminophen ([place]) 5 Mg/325 Mg Tablet T ablet, 1 Tab By Mouth Every six hours as needed as needed for Pain 10/12/16 Discontin ued Hydrocodone/Acetaminophen ([place]) 5 Mg/325 Mg Tablet T ablet, 1 [...] discharge instructions. Plan of Care Discharge Date 03/05/17 Disposition 01-HOME, SELF-CARE,[facility]ST [facility] Condition at Discharge Stable Instructions/Education Provided Chest Pain Dyspepsia Forms Provided Seen In ED Prescriptions See Medications Section Referrals Ken Kent MD - Call office to schedule Additional Instructions/Education 1. Increase Prilosec to 2 pills daily. 2. Take Maalox as needed for heartburn. 3. Avoid alcohol, tobacco, caffeine, and Ibuprofen-like medicines (anti-inflammatories), as these might ma y heartburn worse. 4. Use Phenergan, if needed, for nausea. 5. If symptoms continue, follow-up for e ndoscopy (scope down the throat) may be needed to better evaluate the stomach. 6. Although some form of funny heart rhy thm cannot be fully ruled out, it seems likely that your symptoms are from heartburn/reflux issues. Some of your test results may not [...] worrisome symptoms. * Emergency Department phone number: [phone] MEDICAL RECORD If you need copies of your X-rays, call [phone]. If you need copies of your medical [...] SERVICE B[employer]ING [employer] [facility]. ED Physician Services [phone] X-rays [place] [facility] Patients will receive bills for services from the appropriate provider. If you have any questions about your [facility] bill, our staff will be happy to assist you. Please call [phone] and ask for the billing department. THANK YOU for choosing [facility] your emergency care provider. Care Plan and Goals ~~Discharge Care Plan~~ Problem: Chest, epigastric or chest wall pain Goal: Decreased pain Instructions: Take medication(s) as directed. Follow home discharge instructions. 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 Functional Status Query Response Date Recorded Steady Gait: Y December 03, 2016 0:00am Allergies, Adverse Reactions, Alerts Allergen Type Severity Reaction Status Last Updated No Known Drug Allergies Allergy Unknown Active 1 Immunizations No Known History of Immunizations. Vital Signs Vital Reading Collection Date/Time Result Blood Pressure 03/05/17 6:23pm 114/73 Blood Pressure Source 03/05/17 4:16pm Sitting Temperature 03/05/17 4:16pm 98.4 F Temperature Source 03/05/17 4:16pm Oral Respiratory Rate 03/05/17 6:23pm 16 Pulse Rate 03/05/17 6:23pm 89 Pulse Location 03/05/17 4:16pm Pulse Oximetry Bedside Pulse Oximetry 03/05/17 6:23pm 100 Height 03/05/17 4:16pm 6 ft 2.02 in Height 03/05/17 4:16pm 188 cm Weight 03/05/17 4:16pm 175 lb Weight 03/05/17 4:16pm 79.5 kg Body Mass Index 03/05/17 4:16pm 22.5 kg/m2 Results Laboratory Results Test Name Result Units Flags Reference Collection Date/Time Result Date/Time Comments Glucose Level 94 mg/dL 74-106 03/05/17 4:28pm 03/05/17 5 :05pm Blood Urea Nitrogen 8 mg/dL L 9-03/05/17 4:28pm 02/16 01/02 5:05pm Creatinine 0.88 mg/dL [...] 5:05pm Anion Gap 11 mmol/L 7-16 03/05/17 4:28pm 03/05/17 5:05p m Calcium Level 9.8 mg/dL 8.4-10.2 [...] Discharge/Depart Date Attending Provider Departed Emergency [facility] 03/05/17 4:12p m 03/05/17 6:34pm ALMITA ESTEVEZ MD Registered Clinical [facility] 03/05/17 3:39pm ALMITA SEE MD Encounter Diagnosis Onset Date Chest pain
--- OUTSIDE RECORDS SUMMARY | 2019-09-20 01:04 | XMS REPORT | Continuity of Care Document ---
Author Author [facility] Organization [facility] Address [address] [place] [address] Phone Unavailable Care Team Providers Care Fruit Buying Grader Name Role Phone Patient States, No PCP Unavailable Unavailable Insurance Providers Payer Name Policy Number Subscriber Name Relationship [facility] [id number] TAWNYA MARQUEZ SELF / SAME PATIENT Advance Directives Directive Response Recorded Date/Time Advance Directives: No 08/07/18 0:41am Chief Complaint and Reason for Visit Reason [...] Unknown 06/24/18 Active Malaise Unknown 07/01/18 Active Medications Past Home Medications Medication Directions [...] discharge instructions. 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 Some of your test results may not [...] worrisome symptoms. * Emergency Department phone number: [phone] MEDICAL RECORD If you need copies of your X-rays, call [phone]. If you need copies of your medical [...] SERVICE BILLING [employer] Emergency Room Services [facility] Physician Services [facility] X-rays (Interpretation) [place] [facility] Patients will receive bills for services from the appropriate provider. If you have any questions about your [facility] bill, our staff will be happy to assist you. Please call [phone] and ask for the billing department. THANK YOU for choosing [facility] as your emergency care provider. Care Plan and Goals ~~Discharge Care Plan~~ Problem: Nausea, vomiting or diarrhea Goal: Decrease in nausea, vomiting or diarrhea Instructions: Encourage fluids approximately 6-8 glasses of water or noncarbonated fluids. Take medication(s) as directed. Follow home discharge instructions. Follow up with primary care physicians or oracle applications developer as directed. 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 Vital Signs Vital Reading Collection Date/Time Result Blood Pressure 08/07/18 1:09am 118/75 Blood Pressure Source 08/07/18 1:09am Sitting Temperature 08/07/18 1:09am 98.2 F Temperature Source 08/07/18 1:09am Oral Respiratory Rate 08/07/18 1:09am 16 Pulse Rate 08/07/18 1:09am 75 Pulse Location 08/07/18 1:09am Machine Bedside Pulse Oximetry 08/07/18 1:09am 98 Weight 08/07/18 0:41am 170 lb Weight 08/07/18 0:41am 77.3 kg Results No known relevant diagnostic tests, laboratory data and/or discharge summary. Procedures No Known History of Procedures. Encounters Encounter Location Arrival/Admit Date Discharge/Depart Date Attending Provider Departed Emergency [facility] 08/07/18 0:34am 08/07/18 1: 10am Marie Dennis APRN Encounter Diagnosis Onset Date GERD (gastroesophageal reflux disease)
--- OUTSIDE RECORDS SUMMARY | 2019-09-20 01:04 | XMS REPORT | Continuity of Care Document ---
Author Author [facility] Organization [facility] Address [address] [place] [address] Phone Unavailable Care Team Providers Care Asset Coordinator Name Role Phone Patient States, No PCP Unavailable Unavailable Insurance Providers Payer Name Policy Number Subscriber Name Relationship [facility] [id number] TAWNYA MARQUEZ SELF / SAME PATIENT Advance Directives Directive Response Recorded Date/Time Advance Directives: No 08/10/18 6:40pm Chief Complaint and Reason for Visit Reason [...] OF LEFT RADIUS, INIT Unknown 08/10/18 Active Medications Past Home Medications Medication Directions [...] discharge instructions. Plan of Care Discharge Date 08/10/18 Disposition HOME, SELF CARE, ASST LIVING Condition at Discharge Stable Instructions/Education Provided Radius Fracture (DC) Prescriptions See Medications Section Referrals Garfield Najera MD - [place] w Additional Instructions/Education Orthopedics and Anes thesia will call you [facility]. They will let you know when to stop eating and drinking this includes taking the pain medication. They will also let you know what time surgery is scheduled for tommorrow. Some of your test results may not [...] worrisome symptoms. * Emergency Department phone number: [phone] MEDICAL RECORD If you need copies of your X-rays, call [phone]. If you need copies of your medical [...] SERVICE BILLING [employer] Emergency Room Services [facility] Physician Services [facility] X-rays (Interpretation) [place] [facility] Patients will receive bills for services from the appropriate provider. If you have any questions about your [facility] bill, our staff will be happy to assist you. Please call [phone] and ask for the billing department. THANK YOU for choosing [facility] as your emergency care provider. 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 Vital Signs Vital Reading Collection Date/Time Result Blood Pressure 08/10/18 8:20pm 114/87 Blood Pressure Source 08/10/18 8:20pm Sitting Temperature 08/07/18 1:09am 98.2 F Temperature Source 08/07/18 1:09am Oral Respiratory Rate 08/10/18 8:20pm 20 Pulse Rate 08/10/18 8:20pm 80 Pulse Location 08/10/18 8:20pm Pulse Oximetry Bedside Pulse Oximetry 08/10/18 8:20pm 100 Weight 08/07/18 0:41am 170 lb Weight 08/07/18 0:41am 77.3 kg Results No known relevant diagnostic tests, laboratory data and/or discharge summary. Procedures No Known History of Procedures. Encounters Encounter Location Arrival/Admit Date Discharge/Depart Date Attending Provider Departed Emergency [facility] 08/10/18 6:29pm 08/10/18 8: 20pm Marie Dennis APRN Departed Emergency [facility] 08/07/18 0:34am 08/07/18 1: 10am Marie Dennis APRN Encounter Diagnosis Onset Date DISPLACED OBLIQUE FRACTURE OF SHAFT OF LEFT RADIUS, IN IT
--- OUTSIDE RECORDS SUMMARY | 2019-09-20 01:04 | XMS REPORT | Continuity of Care Document ---
Author Author [facility] Organization [facility] Address [address] [place] [address] Phone Unavailable Care Team Providers Care Enterprise Application Analyst Name Role Phone Patient States, No PCP Unavailable Unavailable Insurance Providers Payer Name Policy Number Subscriber Name Relationship [id number] TAWNYA MARQUEZ SELF / SAME P ATIENT Advance Directives Directive Response Recorded Date/Time Advance Directives: No 12/02/16 11:28pm Chief Complaint and Reason for Visit Reason for Visit Problems Active Medical Problems Problem Onset Date Recorded Date Status Chronic pain Unknown 09/19/13 Active Pain due to dental caries Unknown 10/10/16 Active Infected dental caries Unknown 10/12/16 Active Abdominal pain Unknown 10/13/16 Active Vertigo Unknown 12/03/16 Active Sinusitis accessory Unknown 12/03/16 Active Medications Current Home Medications Medication Dose Units Route Directions Days/Qty Instructions Star t Date ALPRAZolam (Xanax) 0.5 MG TABLET 0.5 MG By Mouth as needed for Anxiety Amoxicillin/Clavulanate K (Augmentin) 875 MG/125 MG TABLET 875 MG By Mouth Twice daily with food 12/03/16 Meclizine (Antivert) 25 MG TABLET 25 MG By Mout h Three times daily as needed for dizziness 12/03/16 Promethazine (Phenergan) 25 MG TABLET 25 MG By Mouth Every six hours as needed as needed for Nausea 12/03/16 diazePAM (Valium) 5 MG TABLET 5 MG By Mouth Q 8 HR as needed for dizziness 14 12/03/16 Past Home Medications Medication Directions Ordered Status Amoxicillin (Amoxil*) 500 Mg Capsule Capsule, 500 Mg By Mout h Three times daily 10/10/16 Discontinued Hydrocodone/Acetaminophen (Mulvane) 5 Mg/325 Mg Tablet T ablet, 1 Tab By Mouth Every six hours as needed as needed for Pain 10/12/16 Discontin ued Hydrocodone/Acetaminophen (Mulvane) 5 Mg/325 Mg Tablet T ablet, 1 Tab By Mouth Every 4-6 hours as needed as needed for Pain 10/10/16 Discontin ued No Home Medications , Unknown Disconti nued Social History Query Response Start Date Stop Date Smoking status: Current every day smoker Hospital Discharge Instructions No hospital discharge instructions. Plan of Care Discharge Date 12/03/16 Disposition 01-HOME, SELF-CARE,ASST [facility]RISTIAN NG Condition at Discharge Stable Instructions/Education Provided PRIMARY CARE PROVIDERS Vertigo (a Type of Dizziness) Sinusitis in Adults Forms Provided Seen In ED Prescriptions See Medications Section Referrals Romelia Winkler - Call office t o schedule Additional Instructions/Education pelase rest. no dri ving until better. return to the er for worsenign symptoms. follow up with assigned doctor in 3-5 days Some of your test results may not [...] worrisome symptoms. * Emergency Department phone number: [phone] MEDICAL RECORD If you need copies of your X-rays, call [phone]. If you need copies of your medical [...] BILLING [employer]Y Emergency Room Services [facility] ED Physician Services [phone] X-rays [place] [facility] Patients will receive bills for services from the appropriate provider. If you have any questions about your [facility] bill, our staff will be happy to assist you. Please call [phone] and ask for the billing department. THANK YOU for [facility] your [facility] care [facility]. Care Plan and Goals ~~Discharge Care Plan~~ Problem: Dizziness Goal: Decrease in symptoms Instructions: Take medication(s) as directed. Follow home discharge instructions. Follow up with primary care physician or neurologist as directed. Functional Status Query Response Date Recorded Steady Gait: Y December 03, 2016 0:00am Allergies, Adverse Reactions, Alerts Allergen Type Severity Reaction Status Last Updated No Known Drug Allergies Allergy Unknown Active 0 12/02/16 Immunizations No Known History of Immunizations. Vital Signs Vital Reading Collection Date/Time Result Blood Pressure 12/03/16 1:29am 124/68 Blood Pressure Source 12/03/16 1:29am Sitting Temperature 12/02/16 11:28pm 98.7 F Temperature Source 12/02/16 11:28pm Oral Respiratory Rate 12/03/16 1:29am 14 Pulse Rate 12/03/16 1:29am 62 Pulse Location 12/03/16 1:29am Pulse Oximetry Bedside Pulse Oximetry 12/03/16 1:29am 97 Height 12/02/16 11:28pm 6 ft 0.99 in Height 12/02/16 11:28pm 185.4 cm Weight 12/02/16 11:28pm 170 lb Weight 12/02/16 11:28pm 77.3 kg Body Mass Index 12/02/16 11:28pm 22.5 kg/m2 Results Laboratory Results Test Name Result Units Flags Reference Collection Date/Time Result Date/Time Comments White Blood Count 12.4 K/mm3 H 4.8-10.8 12/03/16 0:05am 12/03 0:11am Red Blood Count 5.08 M/mm3 4.20-5.60 12/03/16 0:05am 0:11am Hemoglobin 15.1 g/dl 13.5-18.0 12/03/16 0:05am 12/03/16 0: 11am Hematocrit 44.4 % 42.0-52.0 12/03/16 0:05am 12/03/16 0: 11am Mean Corpuscular Volume 87 fl 80.0-100.0 12/03/16 0:05 am 12/03/16 0:11am Mean Corpuscular Hemoglobin 30 pg 27.0-31.0 12/03/16 0 :05am 12/03/16 0:11am Mean Corpuscular Hemoglobin Concent 34 g/dl 33.0 -37.0 12/03/16 0:05am 12/03/16 0:11am Red Cell Distribution Width 12.4 % 11.5-14.5 12/03/16 0 :05am 12/03/16 0:11am Platelet Count 272 K/mm3 130-400 12/03/16 0:05am 12/03/16 0:11am Mean Platelet Volume 9.3 fl 7.4-10.4 12/03/16 0:05am 0:11am Granulocytes (%) 68.3 % 42.2-75.2 12/03/16 0:05am 12/03 0:11am Lymphocytes % 20.0 % 20.0-51.0 12/03/16 0:05am 12/03/16 0:11am Monocytes % 8.9 % 1.7-9.3 12/03/16 0:05am 12/03/16 0:1 1am Eosinophils % 1.8 % 0-4.0 12/03/16 0:05am 12/03/16 0 :11am Basophils % 0.6 % 0.0-2.0 12/03/16 0:05am 12/03/16 0:1 1am Granulocytes # 8.5 H 1.4-6.5 12/03/16 0:05am 12/03/16 0:11am Lymphocytes # 2.5 1.2-3.4 12/03/16 0:05am 12/03/16 0 :11am Monocytes # 1.1 H 0.1-0.6 12/03/16 0:05am 12/03/16 0:1 1am Eosinophils # 0.2 0.0-0.7 12/03/16 0:05am 12/03/16 0 :11am Basophils # 0.1 0.0-0.2 12/03/16 0:05am 12/03/16 0:1 1am Glucose Level 96 mg/dL 74-106 12/03/16 0:05am 12/03/16 0 :23am Blood Urea Nitrogen 11 mg/dL 9-20 12/03/16 0:05am 11/16 01/02 0:23am Creatinine 0.80 mg/dL 0.66-1.25 12/03/16 0:05am 12/03/16 0: 23am Estimated GFR () 143 7 0:05am 12/03/16 0:23am Estimated GFR (Non- 118 11/16 01/02 0:05am 12/03/16 0:23am eGFR Interpretation: Chronic Kidney Disease = CKD [...] muscle mass, or nutritional status. Sodium Level 139 mmol/L 137-145 12/03/16 0:05am 12/03/16 0: 23am Potassium Level 3.8 mmol/L 3.4-5.0 12/03/16 0:05am 12/03/16 0:23am Chloride Level 100 mmol/L 98-107 12/03/16 0:05am 12/03/16 0:23am Carbon Dioxide Level 26 mmol/L 22-30 12/03/16 0:05am 0:23am Anion Gap 13 mmol/L 7-16 12/03/16 0:05am 12/03/16 0:23a m Calcium Level 9.7 mg/dL 8.4-10.2 12/03/16 0:05am 12/03/16 0:23am Calcium Adjusted for Albumin 9.1 mg/dL 8.4-10.2 0 12/03/16 0:05am 12/03/16 0:23am Serum Total Protein 7.8 gm/dL 6.4-8.2 12/03/16 0:05am 11/16 01/02 0:23am Albumin 4.7 gm/dL 3.5-5.0 12/03/16 0:05am 12/03/16 0:23am Total Bilirubin 0.7 mg/dL 0.0-1.0 12/03/16 0:05am 12/03/16 0:23am Aspartate Amino Transf (AST/SGOT) 26 U/L 15-37 12/03/16 0:05am 12/03/16 0:23am Alanine Aminotransferase (ALT/SGPT) 29 U/L 21-7 2 12/03/16 0:05am 12/03/16 0:23am Alkaline Phosphatase 75 U/L 50-136 12/03/16 0:05am 0:23am Thyroid Stimulating Hormone (TSH) 1.550 uIU/mL 0.465- 4.680 12/03/16 0:05am 12/03/16 0:52am Procedures No Known History of Procedures. Encounters Encounter Location Arrival/Admit Date Discharge/Depart Date Attending Provider Departed Emergency [facility] 12/02/16 11:27 pm 12/03/16 1:30am BUDDY SIFUENTES Encounter Diagnosis Onset Date Vertigo Sinusitis accessory
--- OUTSIDE RECORDS SUMMARY | 2019-09-20 01:04 | XMS REPORT | Continuity of Care Document ---
Author Author [facility] Organization [facility] Address [address] [place] [address] Phone Unavailable Care Team Providers Care Public Housing Interviewer Name Role Phone Patient States, No PCP Unavailable Unavailable Insurance Providers Payer Name Policy Number Subscriber Name Relationship [facility] [id number] TAWNYA MARQUEZ SELF / SAME PATIENT Advance Directives Directive Response Recorded Date/Time Advance Directives: No 07/01/18 6:06pm Chief Complaint and Reason for Visit Reason [...] discharge instructions. Plan of Care Discharge Date 07/01/18 Disposition HOME, SELF CARE, ASST LIVING Condition at Discharge Stable Instructions/Education Provided Dehydration, Adult (DC ) Fatigue (DC) Prescriptions See Medications Section Referrals Patient States,No PCP - Additional Instructions/Education Rest. Continue to drink plenty of fluids. Follow up with a primary care if symptoms change or worsen. Some of your test results may not [...] worrisome symptoms. * Emergency Department phone number: [phone] MEDICAL RECORD If you need copies of your X-rays, call [phone]. If you need copies of your medical [...] services. SERVICE BILLING DEMOCRAT Emergency Room Services [facility] Physician Services [facility] X-rays (Interpretation) [facility] Patients will receive bills for services from the appropriate provider. If you have any questions about your [facility] bill, our staff will be happy to assist you. Please call [phone] and ask for the billing department. THANK YOU for choosing [facility] as your emergency care provider. 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 Vital Signs Vital Reading Collection Date/Time Result Blood Pressure 07/01/18 7:24pm 117/71 Blood Pressure Source 07/01/18 7:24pm Sitting Temperature 07/01/18 7:24pm 98.4 F Temperature Source 07/01/18 7:24pm Oral Respiratory Rate 07/01/18 7:24pm 20 Pulse Rate 07/01/18 7:24pm 71 Pulse Location 07/01/18 7:24pm Pulse Oximetry Bedside Pulse Oximetry 07/01/18 7:24pm 96 Height 07/01/18 6:06pm 6 ft 2.02 in Height 07/01/18 6:06pm 188 cm Weight 07/01/18 6:06pm 170 lb Weight 07/01/18 6:06pm 77.3 kg Body Mass Index 07/01/18 6:06pm 21.9 kg/m2 Results Laboratory Results Test Name Result Units Flags Reference Collection Date/Time Result Date/Time Comments Urine Collection Type CLEAN CATCH 07/01/18 6:51p m 07/01/18 7:11pm Urine Color YELLOW 07/01/18 6:51pm 07/01/18 7:1 1pm Urine Appearance HAZY 07/01/18 6:51pm 9 7:11pm Urine Specific [place] 1.024 1.001-1.035 07/01/18 6:51 pm 07/01/18 7:11pm Urine pH 6.0 5.0 - 8.0 07/01/18 6:51pm 07/01/18 7:11 pm Urine Protein TRACE mg/dL H NEGATIVE 07/01/18 6:51pm 07/01/18 7:11pm Urine Glucose (UA) NEGATIVE mg/dL NEGATIVE 07/01/18 6:51pm 7:11pm Urine Ketones NEGATIVE NEGATIVE 07/01/18 6:51pm 07/01/18 7:11pm Urine Bilirubin NEGATIVE NEGATIVE 07/01/18 6:51pm 7:11pm Urine Urobilinogen NORMAL NORMAL 07/01/18 6:51pm 07/01 7:11pm Urine Nitrate NEGATIVE NEGATIVE 07/01/18 6:51pm 07/01/18 7:11pm Urine Blood NEGATIVE NEGATIVE 07/01/18 6:51pm 07/01/18 7 :11pm Urine Leukocyte Esterase NEGATIVE NEGATIVE 07/01/18 6:51 pm 07/01/18 7:11pm Urine WBC 1-3 /hpf 0-3 07/01/18 6:51pm 07/01/18 7:11p m Urine RBC 0 /hpf 0-3 07/01/18 6:51pm 07/01/18 7:11p m Urine Epithelial Cells RARE /lpf FEW 07/01/18 6:51pm 0 07/01/18 7:11pm Urine Bacteria NONE NOT PRESENT 07/01/18 6:51pm 07/01 7:11pm Urine Mucus PRESENT H NOT PRESENT 07/01/18 6:51pm 07/01/18 7:11pm Urine Amorphous Sediment PRESENT H NOT PRESENT 6:51pm 07/01/18 7:11pm White Blood Count 8.6 K/mm3 4.8-10.8 07/01/18 6:35pm 07/01 6:46pm Red Blood Count 5.34 M/mm3 4.20-5.60 07/01/18 6:35pm 6:46pm Hemoglobin 15.4 g/dL 13.5-18.0 07/01/18 6:35pm 07/01/18 6: 46pm Hematocrit 46.9 % 42.0-52.0 07/01/18 6:35pm 07/01/18 6: 46pm Mean Corpuscular Volume 88 fl 78-100 07/01/18 6:35pm 07/01/18 6:46pm Mean Corpuscular Hemoglobin 29 pg 27-31 07/01/18 6:3 5pm 07/01/18 6:46pm Mean Corpuscular Hemoglobin Concent 33 g/dL 33-3 7 07/01/18 6:35pm 07/01/18 6:46pm Red Cell Distribution Width 12.5 % 11.5-14.5 07/01/18 6 :35pm 07/01/18 6:46pm Platelet Count 272 K/mm3 130-400 07/01/18 6:35pm 07/01/18 6:46pm Mean Platelet Volume 9.8 fl 7.4-10.4 07/01/18 6:35pm 6:46pm Absolute Neutrophils (auto) 60.2 % 42.0-75.2 07/01/18 6 :35pm 07/01/18 6:46pm Lymphocytes % 25.7 % 20.0-51.0 07/01/18 6:35pm 07/01/18 6:46pm Monocytes % 11.5 % *H 1.0-10.0 07/01/18 6:35pm 07/01/18 6: 46pm Eosinophils % 1.9 % 0.0-4.0 07/01/18 6:35pm 07/01/18 6 :46pm Basophils % 0.5 % 0.0-2.0 07/01/18 6:35pm 07/01/18 6:4 6pm Absolute Neutrophil 5.2 1.40-6.50 07/01/18 6:35pm 6:46pm Lymphocytes # 2.2 1.50-4.00 07/01/18 6:35pm 07/01/18 6:46pm Monocytes # 1.0 H 0.20-0.80 07/01/18 6:35pm 07/01/18 6 :46pm Eosinophils # 0.2 0.04-0.40 07/01/18 6:35pm 07/01/18 6:46pm Basophils # 0.0 L 0.02-0.10 07/01/18 6:35pm 07/01/18 6 :46pm Glucose Level 82 mg/dL 75-110 07/01/18 6:35pm 07/01/18 6 :52pm Blood Urea Nitrogen 11 mg/dL 9-20 07/01/18 6:35pm 06/19 08/04 6:52pm Creatinine 0.8 mg/dL 0.8-1.5 07/01/18 6:35pm 07/01/18 6:52 pm Estimated GFR () 140 9 6:35pm 07/01/18 6:52pm Estimated GFR (Non- 116 06/19 08/04 6:35pm 07/01/18 6:52pm eGFR Interpretation: Chronic Kidney Disease = CKD [...] muscle mass, or nutritional status. BUN/Creatinine Ratio 14.7 6.0-26.0 07/01/18 6:35pm 6:52pm Sodium Level 143 mmol/L 137-145 07/01/18 6:35pm 07/01/18 6: 52pm Potassium Level 4.1 mmol/L 3.6-5.0 07/01/18 6:35pm 07/01/18 6:52pm Chloride Level 106 mmol/L 98-107 07/01/18 6:35pm 07/01/18 6:52pm Carbon Dioxide Level 29 mmol/L 22-30 07/01/18 6:35pm 6:52pm Calcium Level 9.0 mg/dL 8.4-10.2 07/01/18 6:35pm 07/01/18 6:52pm Procedures No Known History of Procedures. Encounters Encounter Location Arrival/Admit Date Discharge/Depart Date Attending Provider Departed Emergency [facility] 07/01/18 6:03pm 07/01/18 7: 24pm Seda Pavon Departed Emergency [facility] 06/24/18 2:05am 06/24/18 2: 32am Jennifer Machuca APRN Departed Emergency [facility] 06/04/18 10:45pm 06/05/18 1 :36am Jennifer Machuca APRN Encounter Diagnosis Onset Date Malaise
--- OUTSIDE RECORDS SUMMARY | 2019-09-20 01:04 | XMS REPORT | Continuity of Care Document ---
Author Author [facility] Organization [facility] Address [address] [place] [address] Phone Unavailable Care Team Providers Care Bereavement Program Coordinator Name Role Phone Patient States, No PCP Unavailable Unavailable Insurance Providers Payer Name Policy Number Subscriber Name Relationship [facility] [id number] TAWNYA MARQUEZ SELF / SAME PATIENT Advance Directives Directive Response Recorded Date/Time Advance Directives: No 11/07/17 3:35am Chief Complaint and Reason for Visit Reason for Visit ER Problems Active Medical Problems Problem Onset Date Recorded Date Status Influenza due to Influenza A virus Unknown 05/16/13 Active Anxiety disorder Unknown 09/17/16 Active Heart palpitations Unknown 09/17/16 Active Fatigue Unknown 09/17/16 Active Stress and adjustment reaction Unknown 09/17/16 A ctive Skin abscess Unknown 11/07/17 Active Medications Current Home Medications Medication Dose Units Route Directions Days/Qty Instructions Star t Date Sulfamethoxazole/Trimethoprim (Bactrim DS) 800 MG/160 MG TABLET 1 TAB ORAL Twice daily 7 Days 11/07/17 Past Home Medications Medication Directions Ordered Status No Home Medications Ea Ea, Unknown Disc ontinued Oseltamivir Phosphate (Tamiflu) 75 Mg Cap Cap, 75 Mg Oral Twice daily 05/16/13 Discontinued Family History Relationship Name Date of Condition Age ( At Onset ) Cause of Age ( At ) Age Gender Recorded Date/Time FATHER No pertinent family history M [birth year]1937 MOTHER No pertinent family history F [birth year] Social History Query Response Start Date Stop Date Smoking status: Current every day smoker Hospital Discharge Instructions No hospital discharge instructions. Plan of Care Discharge Date 11/07/17 Disposition HOME, SELF CARE, ASST LIVING Condition at Discharge Stable Instructions/Education Provided Skin Abscess Prescriptions See Medications Section Referrals Patient States,No PCP - Additional Instructions/Education Wash area daily with soap and water. Bactrim 1 tab twice daily for 7 days. Tylenol 500mg 1-2 tabs every 8 hours as needed for pain. Ibuprofen 800mg three time daily as needed for pain. Follow up with primary care doctor as needed. Some of your test results [...] worrisome symptoms. * Emergency Department phone number: [phone] MEDICAL RECORD If you need copies of your X-rays, call [phone]. If you need copies of your medical [...] [employer]ICE [employer]ING [employer] Emergency Room Services [facility] Physician Services [facility] X-rays (Interpretation) [place] [facility] Patients will receive bills for services from the appropriate provider. If you have any questions about your [facility] bill, our staff will be happy to assist you. Please call [phone] and ask for the billing department. THANK YOU for choosing [facility] as your emergency care provider. Care Plan and Goals ~~Discharge Care Plan~~ Problem: Abscess Goal: Decreased redness, itching, and blotches. No abscesses. Instructions: Take medication(s) as directed. 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 Equal: Y September 17, 2016 7:39pm Allergies, Adverse Reactions, Alerts Allergen Type Severity Reaction Status Last Updated No Known Drug Allergies Allergy Unknown Active 0 11/07/17 Immunizations Name Date Given Type Tetanus Unknown Historical Vital Signs Vital Reading Collection Date/Time Result Blood Pressure 11/07/17 4:04am 128/75 Blood Pressure Source 11/07/17 4:04am Sitting Temperature 11/07/17 4:04am 98.0 F Temperature Source 11/07/17 4:04am Oral Respiratory Rate 11/07/17 4:04am 16 Pulse Rate 11/07/17 4:04am 74 Pulse Location 11/07/17 4:04am Machine Bedside Pulse Oximetry 11/07/17 4:04am 100 Height 11/07/17 3:35am 6 ft 2 in Height 11/07/17 3:35am 187.96 cm Weight 11/07/17 3:35am 180 lb Weight 11/07/17 3:35am 81.8 kg Body Mass Index 11/07/17 3:35am 23.2 kg/m2 Results No known relevant diagnostic tests, laboratory data and/or discharge summary. Procedures No Known History of Procedures. Encounters Encounter Location Arrival/Admit Date Discharge/Depart Date Attending Provider Departed Emergency [facility] 11/07/17 3:24am 11/07/17 4: 04am Seda Pavon Encounter Diagnosis Onset Date Skin abscess
--- OUTSIDE RECORDS SUMMARY | 2019-09-20 01:05 | XMS REPORT | Continuity of Care Document ---
Author Author [facility] [employer]. Organization [facility] [employer]. Address [address] [place] [address] Phone Unavailable Care Team Providers Care Banking Representative Name Role Phone Patient States, No PCP Unavailable Unavailable Insurance Providers Payer Name Policy Number Subscriber Name Relationship [facility] [id number] TAWNYA MARQUEZ SELF / SAME PATIENT Advance Directives Directive Response Recorded Date/Time Advance Directives: No 09/27/17 3:54am Chief Complaint and Reason for Visit Reason [...] Unknown 03/10/17 Active Anxiety Unknown 09/27/17 Active Medications Current Home Medications Medication Dose Units Route Directions Days/Qty Instructions Star t Date ALPRAZolam (Xanax) 0.5 MG TABLET 0.5 MG By Mouth Twice daily as needed for anxiety 10 03/05/17 PARoxetine HCl (Paxil) 20 MG TABLET 20 [...] Twice daily with food 12/03/16 Discontinued Hydrocodone/Acetaminophen ([place]) 5 Mg/325 Mg Tablet T ablet, 1 Tab By Mouth Every six hours as needed as needed for Pain 10/12/16 Discontin ued Hydrocodone/Acetaminophen ([place]) 5 Mg/325 Mg Tablet T ablet, 1 [...] discharge instructions. Plan of Care Discharge Date 09/27/17 Disposition 01-HOME, SELF-CARE,ASST CHRISTIAN NG Condition at Discharge Stable Instructions/Education Provided Anxiety, Adult (DC) Palpitations (DC) Prescriptions See Medications Section Referrals Primary,Care [facility] an - Call office to schedule Additional Instructions/Education Follow up with your doctor for Holter monitor placement. Take meds as prescribed. return if worse or as needed. Some of your test results [...] worrisome symptoms. * Emergency Department phone number: [phone] MEDICAL RECORD If you need copies of your X-rays, call [phone]. If you need copies of your medical [...] SERVICE BILLING [employer] Emergency [facility] ED Physician Services [phone] X-rays [place] [facility] Patients will receive bills for services from the appropriate provider. If you have any questions about your [facility] bill, our staff will be happy to assist you. Please call [phone] and ask for the billing department. THANK YOU for choosing [facility] as your emergency care provider. Care [...] Known Drug Allergies Allergy Unknown Active 0 09/27/17 Immunizations No Known History of Immunizations. Vital Signs Vital Reading Collection Date/Time Result Blood Pressure 09/27/17 5:44am 119/80 Blood Pressure Source 09/27/17 5:44am Supine Temperature 09/27/17 3:54am 97.4 F Temperature Source 09/27/17 3:54am Oral Respiratory Rate 09/27/17 5:44am 18 Pulse Rate 09/27/17 5:44am 63 Pulse Location 09/27/17 5:44am Pulse Oximetry Bedside Pulse Oximetry 09/27/17 5:44am 99 Height 09/27/17 3:54am 6 ft 2.02 in Height 09/27/17 3:54am 188 cm Weight 09/27/17 3:54am 182 lb Weight 09/27/17 3:54am 82.7 kg Body Mass Index 09/27/17 3:54am 23.4 kg/m2 Results Laboratory Results Test Name Result Units Flags Reference Collection Date/Time Result Date/Time Comments White Blood Count 9.1 k/mm3 4.8-10.8 09/27/17 4:08am 09/27 4:26am Red Blood Count 5.19 M/mm3 4.20-5.60 09/27/17 4:08am 4:26am Hemoglobin 15.3 g/dl 13.5-18.0 09/27/17 4:08am 09/27/17 4: 26am Hematocrit 45.2 % 42.0-52.0 09/27/17 4:08am 09/27/17 4: 26am Mean Corpuscular Volume 87 fl 80.0-100.0 09/27/17 4:08 am 09/27/17 4:26am Mean Corpuscular Hemoglobin 30 pg 27.0-31.0 09/27/17 4 :08am 09/27/17 4:26am Mean Corpuscular Hemoglobin Concent 34 g/dl 33.0 -37.0 09/27/17 4:08am 09/27/17 4:26am Red Cell Distribution Width 12.4 % 11.5-14.5 09/27/17 4 :08am 09/27/17 4:26am Platelet Count 300 K/mm3 130-400 09/27/17 4:09/27/17 4:26am Mean Platelet Volume 9.3 fl 7.4-10.4 09/27/17 4: 4:26am Granulocytes (%) 43.4 % 42.2-75.2 09/27/17 4:09/27 4:26am Lymphocytes % 42.3 % 20.0-51.0 09/27/17 4:09/27/17 4:26am Monocytes % 9.5 % H 1.7-9.3 09/27/17 4:09/27/17 4:2 6am Eosinophils % 3.6 % 0-4.0 09/27/17 4:09/27/17 4 :26am Basophils % 1.0 % 0.0-2.0 09/27/17 4:09/27/17 4:2 6am Granulocytes # 4.0 1.4-6.5 09/27/17 4:09/27/17 4:26am Lymphocytes # 3.9 H 1.2-3.4 09/27/17 4:09/27/17 4 :26am Monocytes # 0.9 H 0.1-0.6 09/27/17 4:09/27/17 4:2 6am Eosinophils # 0.3 0.0-0.7 09/27/17 4:09/27/17 4 :26am Basophils # 0.1 0.0-0.2 09/27/17 4:09/27/17 4:2 6am D-Dimer < 200.00 ng/mLDDu L 200-230 09/27/17 4:09/27/17 4:48a m A value of >230 cannot be used for the diagnosis of DVT or PE without the use of standard radiological procedures. Glucose Level 90 mg/dL 74-106 09/27/17 4:09/27/17 4 :34am Blood Urea Nitrogen 13 mg/dL 9-20 09/27/17 4:08 05/1 07/06 4:34am Creatinine 0.75 mg/dL 0.66-1.25 09/27/17 4:0809/27/17 4: 34am Estimated GFR () 152 8 4:0809/27/17 4:34am Estimated GFR (Non- 126 09/16 07/06 4:0809/27/17 4:34am eGFR Interpretation: Chronic Kidney Disease = CKD [...] muscle mass, or nutritional status. Sodium Level 145 mmol/L 137-145 09/27/17 4:0809/27/17 4: 34am Potassium Level 4.2 mmol/L 3.4-5.0 09/27/17 4:0809/27/17 4:34am Chloride Level 101 mmol/L 98-107 09/27/17 4:0809/27/17 4:34am Carbon Dioxide Level 27 mmol/L 22-30 09/27/17 4:0805/05 4:34am Anion Gap 17 mmol/L H 7-16 09/27/17 4:0809/27/17 4:34a m Calcium Level 10.7 mg/dL H 8.4-10.2 09/27/17 4:0809/27/17 4:34am Calcium Adjusted for Albumin 10.3 mg/dL H 8.4-10.2 0 09/27/17 4:0809/27/17 4:34am Magnesium Level 1.9 mg/dL 1.6-2.3 09/27/17 4:0809/27/17 4:42am Serum Total Protein 8.8 gm/dL H 6.4-8.2 09/27/17 4:0809/16 4:34am Albumin 4.5 gm/dL 3.5-5.0 09/27/17 4:0809/27/17 4:34am Total Bilirubin 0.6 mg/dL 0.0-1.0 09/27/17 4:0809/27/17 4:34am Aspartate Amino Transf (AST/SGOT) 38 U/L H 15-37 09/27/17 4:08am 09/27/17 4:34am Alanine Aminotransferase (ALT/SGPT) 27 U/L 21-7 2 09/27/17 4:08am 09/27/17 4:34am Alkaline Phosphatase 72 U/L 50-136 09/27/17 4:08am 05/05 4:34am Procedures No Known History of Procedures. Encounters Encounter Location Arrival/Admit Date Discharge/Depart Date Attending Provider Departed Emergency [facility] 09/27/17 3:50a m 09/27/17 5:51am Tara Diaz MD Encounter Diagnosis Onset Date Heart palpitations Anxiety
--- OUTSIDE RECORDS SUMMARY | 2019-09-20 01:05 | XMS REPORT | Continuity of Care Document ---
Author Author [facility] Organization [facility] Address [address] [place] [address] Phone Unavailable Care Team Providers Care Power System Electrical Engineer Name Role Phone Unavailable Unavailable Insurance Providers Payer Name Policy Number Subscriber Name Relationship Self-Pay Self-Pay TAWNYA MARQUEZ Self Chief Complaint and Reason for Visit Reason for Visit Influenza due to In fluenza A virus Problems Active Problems Problem Onset Date Influenza due to Influenza A virus U nknown Medications Medication Dose Route Sig Days/Qty Instructions Or regina Date Status No Home Medications EA 04/19 01/29 Active Oseltamivir Phosphate (Tamiflu) 75 MG CAP 75 MG ORAL Twice daily 9 Qty 05/16/13 Active Social History Query Response Start Date Stop Date Smoking status: Current every day smoker Hospital Discharge Instructions No hospital discharge instructions. Plan of Care Discharge Date 05/16/13 2:57am Disposition HOME Condition at Discharge Stable Prescriptions See Medications Sectio n Additional Instructions/Education Dr mendoza plerudy of fluids. Take ibuprofen 600mg every 6 hours for pain or fever. May take tylenol in addition to ibprofen if needed for pain and fever. Take tamiflu 75mg twice a day for 5 days. Return to the ED if your symptoms worsen. Some of your test results may [...] worrisome symptoms. * Emergency Department phone number: [phone] MEDICAL RECORD If you need copies of your X-rays, call [phone]. If you need copies of your medical [...] [employer]ICE [employer]ING [employer] Emergency Room Services [facility] Physician Services [facility] X-rays (Interpretation) [place] [facility] Patients will receive bills for services from the appropriate provider. If you have any questions about your [facility] bill, our staff will be happy to assist you. Please call [phone] and ask for the billing department. THANK YOU for choosing [facility] as your emergency care provider. Care Plan and Goals ~~Discharge Care Plan~~ Problem: Elevated temperature Goal: Decrease temperature to 98.6 degrees F or your normal temperature Instructions: Take medication(s) as directed. Drink 6-8 glasses of fluids. Keep a log of times and dosages of medication taken. Functional Status Query Response Date Julius rded Hand Adjuster Electrical Contacts Equal: Y Dece mber 2012 0:32am Allergies, Adverse Reactions, Alerts Allergen Type Severity Reaction Status Last Updated No Known Drug Allergies - Nkda Allergy Unknown Active 05/16/13 Immunizations No Known History of Immunizations. Vital Signs Vital Reading Collection Date/Time Result Blood Pressure 05/16/13 2:55am 118/74 Ortho 05/16/13 2:55am HARRIS Temperature 05/16/13 2:55am 98.6 Source 05/16/13 2:55am O Respirations 05/16/13 2:55am 20 Pulse 05/16/13 2:55am 94 Type 05/16/13 2:55am MAC SPO2 (%) 05/16/13 2:55am 98 Height(cm) 05/16/13 0:23am 188.0 Height(ft) 05/16/13 0:23am 6 Height(in) 05/16/13 0:23am 02 Weight(Kg) 05/16/13 0:23am 79.5 Weight(lbs) 05/16/13 0:23am 175 Body Mass Index 05/16/13 0:23am 22.5 Procedures No Known History of Procedures. Results Test Source Date Result Interp. Ref. Range Comme nts BUN/Creatinine Ratio 1 10.5 6.0 - 26.0 Blood Urea Nitrogen 9 mg/dL 9 - 20 Calcium Level 05/16/13 9.1 mg/dL 8.4 - 10.2 Carbon Dioxide Level 1 26 mmol/L 22 - 30 Chloride Level 05/16/13 99 mmol/L 98 - 107 Creatinine 05/16/13 0.9 mg/dL 0.8 - 1.5 Glucose Level 05/16/13 101 mg/dL 75 - 110 Potassium Level 3.8 mmol/L 3.6 - 5.0 Sodium Level 05/16/13 139 mmol/L 137 - 145 Urine Appearance 05/16 CLEAR - Urine Bacteria 05/16/13 TRACE NOT PRESENT - Urine Bilirubin NEGATIVE NEGATIVE - Urine Blood 05/16/13 NEGATIVE NEGATIVE - Urine Collection Type 05/16/13 CLEAN CATCH - Urine Color 05/16/13 YELLOW - Urine Epithelial Cells 05/16/13 RARE /lpf FEW - Urine Glucose (UA) NEGATIVE mg/dL NEGATIV E - Urine Ketones 05/16/13 NEGATIVE NEGATIVE - Urine Leukocyte Esterase 05/16/13 NEGATIVE NEGATIVE - Urine Nitrate 05/16/13 NEGATIVE NEGATIVE - Urine Protein 05/16/13 NEGATIVE mg/dL NEGATIVE - Urine RBC 05/16/13 0-1 /hpf 0 - 3 Urine Specific [place] 05/16/13 1.020 1.001 - 1.035 Urine Urobilinogen NORMAL NORMAL - Urine WBC 05/16/13 0-1 /hpf 0 - 3 Differential Total Cells Counted 05/16/13 100 - Eosinophils % (Manual) 05/16/13 3 % 1 - 5 Hematocrit 05/16/13 43.1 % 42.0 - 52.0 Hemoglobin 05/16/13 14.1 g/dL 13.5 - 18.0 Lymphocytes 05/16/13 9 % PL 20 - 51 Mean Corpuscular Hemoglobin 05/16/13 29 pg 27 - 31 Mean Corpuscular Hemoglobin Concent 05/16/13 33 g/dL 33 - 37 Mean Corpuscular Volume 05/16/13 89 fl 78 - 100 Mean Platelet Volume 1 10.0 fl 7.4 - 10.4 Monocytes % (Manual) 1 7 % 3 - 10 Neutrophils % (Manual) 05/16/13 81 % PH 42 - 75 Platelet Count 05/16/13 232 K/mm3 130 - 400 Platelet Estimate 04/19 01/29 NORMAL NORMAL - Red Blood Count 4.87 M/mm3 4.20 - 5.60 Red Cell Distribution Width 05/16/13 12.4 % 11.5 - 14.5 White Blood Count 04/19 01/29 7.5 K/mm3 4.8 - 10.8 Encounters Encounter Location Date/ Time Departed Emergency [facility] 05/16/13 2:57am Recent Diagnosis Influenza due to Influenza A virus
--- OUTSIDE RECORDS SUMMARY | 2019-09-20 01:05 | XMS REPORT | Continuity of Care Document ---
Author Author [facility] Organization [facility] Address [address] [place] [address] Phone Unavailable Care Team Providers Care Torch Burner Name Role Phone Patient States, No PCP Unavailable Unavailable Insurance Providers Payer Name Policy Number Subscriber Name Relationship [employer] [id number] TAWNYA MARQUEZ SELF / SAME P ATIENT Advance Directives Directive Response Recorded Date/Time Advance Directives: No 12/28/16 0:40am Chief Complaint and Reason for Visit Reason for Visit Problems Active Medical Problems Problem Onset Date Recorded Date Status Chronic pain Unknown 09/19/13 Active Pain due to dental caries Unknown 10/10/16 Active Infected dental caries Unknown 10/12/16 Active Abdominal pain Unknown 10/13/16 Active Vertigo Unknown 12/03/16 Active Sinusitis accessory Unknown 12/03/16 Active Heart palpitations Unknown 12/28/16 Active Medications Current Home Medications Medication Dose Units Route Directions Days/Qty Instructions Star t Date ALPRAZolam (Xanax) 0.5 MG TABLET 0.5 MG By Mouth as needed for Anxiety Past Home Medications Medication Directions Ordered Status Amoxicillin (Amoxil*) 500 Mg Capsule Capsule, 500 Mg By Mout h Three times daily 10/10/16 Discontinued Amoxicillin/Clavulanate K (Augmentin) 87 5 Mg/125 Mg Tablet Tablet, 875 Mg By Mouth Twice daily with food 12/03/16 Discontinued Hydrocodone/Acetaminophen ([place]) 5 Mg/325 Mg Tablet T ablet, 1 Tab By Mouth Every six hours as needed as needed for Pain 10/12/16 Discontin ued Hydrocodone/Acetaminophen ([place]) 5 Mg/325 Mg Tablet T ablet, 1 [...] discharge instructions. Plan of Care Discharge Date 12/28/16 Disposition 01-HOME, SELF-CARE,ASST [facility]RIST[facility] NG Condition at Discharge Stable Instructions/Education Provided Palpitations Prescriptions See Medications Section Referrals [facility] - Additional Instructions/Education Return if recurrant palpitations, dizziness or concerns of any type. Call tomorrow morning to make follow up appointment at end of next week with primary care provider for reevaluation. The holter should be read by then and the primary care provider needs to call to get that data. If you do not have a primary care provider we will assign you one. Some of your test results may not [...] worrisome symptoms. * Emergency Department phone number: [phone] MEDICAL RECORD If you need copies of your X-rays, call [phone]. If you need copies of your medical [...] services. SERVICE BILLING [employer] Emergency Room Services [facility] ED Physician Services [phone] X-rays [place] [facility] Patients will receive bills for services from the appropriate provider. If you have any questions about your [facility] bill, our staff will be happy to assist you. Please call [phone] and ask for the billing department. THANK YOU for choosing [facility] as your emergency care provider. Care Plan and Goals ~~Discharge Care Plan~~ Problem: Chest, epigastric or chest wall pain Goal: Decreased pain Instructions: Take medication(s) as directed. Follow home discharge instructions. Follow up with primary care physician or oncology pharmacist as directed. Functional Status Query Response Date Recorded Steady Gait: Y December 03, 2016 0:00am Allergies, Adverse Reactions, Alerts Allergen Type Severity Reaction Status Last Updated No Known Drug Allergies Allergy Unknown Active 0 12/28/16 Immunizations No Known History of Immunizations. Vital Signs Vital Reading Collection Date/Time Result Blood Pressure 12/28/16 2:44am 113/69 Blood Pressure Source 12/28/16 1:33am Supine Temperature 12/28/16 0:40am 98.0 F Respiratory Rate 12/28/16 2:44am 18 Pulse Rate 12/28/16 2:44am 63 Bedside Pulse Oximetry 12/28/16 2:44am 98 Height 12/28/16 0:40am 6 ft 0.99 in Height 12/28/16 0:40am 185.4 cm Weight 12/28/16 0:40am 175 lb Weight 12/28/16 0:40am 79.5 kg Body Mass Index 12/28/16 0:40am 23.1 kg/m2 Results Laboratory Results Test Name Result Units Flags Reference Collection Date/Time Result Date/Time Comments Hemoglobin 13.8 g/dl 13.5-18.0 12/28/16 1:20am 12/28/16 1: 24am Hematocrit 40.9 % L 42.0-52.0 12/28/16 1:20am 12/28/16 1: 24am Glucose Level 92 mg/dL 74-106 12/28/16 1:20am 12/28/16 1 :33am Blood Urea Nitrogen 13 mg/dL 9-12/28/16 1:20am 12/17 07/05 1:33am Creatinine 0.67 mg/dL 0.66-1.25 12/28/16 1:20am 12/28/16 1: 33am Estimated GFR () 175 7 1:20am 12/28/16 1:33am Estimated GFR (Non- 145 12/17 07/05 1:20am 12/28/16 1:33am eGFR Interpretation: Chronic Kidney Disease = CKD [...] muscle mass, or nutritional status. Sodium Level 136 mmol/L L 137-145 12/28/16 1:20am 12/28/16 1: 33am Potassium Level 3.5 mmol/L 3.4-5.0 12/28/16 1:20am 12/28/16 1:33am Chloride Level 104 mmol/L 98-107 12/28/16 1:20am 12/28/16 1:33am Carbon Dioxide Level 22 mmol/L 22-30 12/28/16 1:20am 05/04 1:33am Anion Gap 9 mmol/L 7-16 12/28/16 1:20am 12/28/16 1:33a m Calcium Level 9.0 mg/dL 8.4-10.2 12/28/16 1:20am 12/28/16 1:33am Thyroid Stimulating Hormone (TSH) 1.110 uIU/mL 0.465- 4.680 12/28/16 1:20am 12/28/16 2:13am White Blood Count 12.4 K/mm3 H 4.8-10.8 12/03/16 0:05am 12/03 0:11am Red Blood Count 5.08 M/mm3 4.20-5.60 12/03/16 0:05am 0:11am Mean Corpuscular Volume 87 fl 80.0-100.0 12/03/16 [...] 0.1 0.0-0.2 12/03/16 0:05am 12/03/16 0:1 1am Calcium Adjusted for Albumin 9.1 mg/dL 8.4-10.2 [...] Phosphatase 75 U/L 50-136 12/03/16 0:05am 0:23am Procedures No Known History of Procedures. Encounters Encounter Location Arrival/Admit Date Discharge/Depart Date Attending Provider Departed Emergency [facility] 12/28/16 0:39a m 12/28/16 2:46am SOTO FUNG MD Departed Emergency [facility] 12/02/16 11:27 pm 12/03/16 1:30am BUDDY SIFUENTES Registered Clinical [facility] 12/02/16 10:30pm William Lynch Encounter Diagnosis Onset Date Heart palpitations
--- OUTSIDE RECORDS SUMMARY | 2019-09-20 01:05 | XMS REPORT | Continuity of Care Document ---
Author Author Via [facility]. Organization [facility]. Address [address] [place] [address] Phone Unavailable Care Team Providers Care Harpsichord Maker Name Role Phone Patient States, No PCP Unavailable Unavailable Insurance Providers Payer Name Policy Number Subscriber Name Relationship Self-Pay Self-Pay TAWNYA MARQUEZ Self Advance Directives Directive Response Recorded Date/Time Advance Directives: No 10/10/16 9:46pm Chief Complaint and Reason for Visit Reason for Visit Problems Active Medical Problems Problem Onset Date Recorded Date Status Chronic pain Unknown 09/19/13 Active Pain due to dental caries Unknown 10/10/16 Active Medications Current Home Medications Medication Dose Units Route Directions Days/Qty Instructions Star t Date Amoxicillin (Amoxil*) 500 MG CAPSULE 500 MG By Mouth Three time s daily 30 10/10/16 HYDROcodone/Acetaminophen ([place]) 5 MG/325 MG TABLET 1 T AB By Mouth Every 4-6 hours as needed as needed for Pain 10 10/10 Past Home Medications Medication Directions Ordered Status No Home Medications , Unknown Disconti nued Social History Query Response Start Date Stop Date Smoking status: Current every day smoker Hospital Discharge Instructions No hospital discharge instructions. Plan of Care Discharge Date 10/10/16 Disposition 01-HOME, SELF-CARE,[facility]ST [facility] Condition at Discharge Stable Instructions/Education Provided Dental Pain (DC) Prescriptions See Medications Section Referrals [facility] - Call office to schedule Reason(s) for Referral: Notes: Need to follow up with a dentist as soon as possible. Additional Instructions/Education 1. Antibiotic as dir ected for infection in the tooth. 2. Motrin as needed for moderate pain, H ydrocodone as needed for severe pain. 3. Return to ER as needed for persistent vomiting, difficulty swallowing, or any other new or worsening concerns. Some of your test results may not [...] worrisome symptoms. * Emergency Department phone number: [phone] MEDICAL RECORD If you need copies of your X-rays, call [phone]. If you need copies of your medical [...] SERVICE BILLING DEMOCRAT Emergency Room Services [facility]. ED Physician Services [phone] X-rays [place] Patients will receive bills for services from the appropriate provider. If you have any questions about your [facility] bill, our staff will be happy to assist you. Please call [phone] and ask for the billing department. THANK YOU for choosing [facility] as your emergency care provider. Care Plan and Goals ~~Discharge Care Plan~~ Problem: Fractured tooth, abscess, or dental caries Goal: Decreased pain. Dental repair/extraction is completed by dentist. Instructions: Practice good oral hygiene. Take medications as prescribed. Follow up with your dentist or [facility] as directed. Functional Status No functional status results. Allergies, Adverse Reactions, Alerts Allergen Type Severity Reaction Status Last Updated No Known Drug Allergies Allergy Unknown Active 0 10/10/16 Immunizations No Known History of Immunizations. Vital Signs Vital Reading Collection Date/Time Result Blood Pressure 10/10/16 9:46pm 124/78 Blood Pressure Source 10/10/16 9:46pm Sitting Temperature 10/10/16 9:46pm 98.0 F Temperature Source 10/10/16 9:46pm Oral Respiratory Rate 10/10/16 11:02pm 18 Pulse Rate 10/10/16 9:46pm 82 Pulse Location 10/10/16 9:46pm Pulse Oximetry Bedside Pulse Oximetry 10/10/16 9:46pm 100 Height 10/10/16 9:46pm 6 ft 2.02 in Height 10/10/16 9:46pm 188 cm Weight 10/10/16 9:46pm 170 lb Weight 10/10/16 9:46pm 77.3 kg Body Mass Index 10/10/16 9:46pm 21.9 kg/m2 Results Laboratory Results Test Name Result Units Flags Reference Collection Date/Time Result Date/Time Comments Thyroid Stimulating Hormone (TSH) 1.000 uIU/mL 0.465- 4.680 09/17/16 8:32pm 09/18/16 12:20pm Procedures No Known History of Procedures. Encounters Encounter Location Arrival/Admit Date Discharge/Depart Date Attending Provider Departed Emergency [facility] 10/10/16 9:43p 10/10/16 11:02pm ALMITA ESTEVEZ Registered Referral [facility] 09/18/16 9:55am Jennifer Machuca Encounter Diagnosis Onset Date Pain due to dental caries
--- OUTSIDE RECORDS SUMMARY | 2019-09-20 01:05 | XMS REPORT | Continuity of Care Document ---
Author Author Via [facility]. Organization [facility] 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 Role Phone Patient States, No PCP Unavailable Unavailable Insurance Providers Payer Name Policy Number Subscriber Name Relationship Self-Pay Self-Pay TAWNYA MARQUEZ Self Chief Complaint and Reason for Visit Reason for Visit Problems Active Medical Problems Problem Onset Date Recorded Date Status Chronic pain Unknown 09/19/13 Active Pain due to dental caries Unknown 10/10/16 Active Infected dental caries Unknown 10/12/16 Active Medications Current Home Medications Medication Dose Units Route Directions Days/Qty Instructions Star t Date ALPRAZolam (Xanax) 0.5 MG TABLET 0.5 MG By Mouth as needed for Anxiety Amoxicillin (Amoxil*) 500 MG CAPSULE 500 MG By Mouth Three time s daily 30 10/10/16 HYDROcodone/Acetaminophen ([place]) 5 MG/325 MG TABLET 1 T AB By Mouth Every six hours as needed as needed for Pain 14 10/12 Past Home Medications Medication Directions Ordered Status Hydrocodone/Acetaminophen ([place]) 5 Mg/325 Mg Tablet T ablet, 1 Tab By Mouth Every 4-6 hours as needed as needed for Pain 10/10/16 Discontin ued No Home Medications , Unknown Disconti nued Social History Query Response Start Date Stop Date Smoking status: Current every day smoker Hospital Discharge Instructions No hospital discharge instructions. Plan of Care Discharge Date 10/12/16 Disposition 01-HOME, SELF-CARE,[facility]ST [facility] NG Condition at Discharge Stable Instructions/Education Provided Dental Pain (DC) Forms Provided Seen In ED Prescriptions See Medications Section Referrals [facility] - 3-5 days Additional Instructions/Education 1. Home to rest. 2. Use warm and cool compresses to the j aw for comfort. 3. Take ibuprofen 600-800 mg every 4-6 h ours for pain and inflammation. 4. Continue your amoxicillin as prescrib ed. 5. Take norco as needed for pain. Do not drive or operate machinery while taking this medication. Do not take extra tylenol with it as tylenol is included. 6. Follow up with [facility] for tooth extraction. Some of your test results may not [...] worrisome symptoms. * Emergency Department phone number: [phone] MEDICAL RECORD If you need copies of your X-rays, call [phone]. If you need copies of your medical [...] BILLING CONSTITUTION PARTY Emergency Room Services [facility]. ED Physician Services [phone] X-rays [place] Patients will receive bills for services from the appropriate provider. If you have any questions about your Via [facility]. bill, our staff will be happy to assist you. Please call [phone] and ask for the billing department. THANK YOU for choosing Via [facility] as your emergency care provider. Care Plan and Goals ~~Discharge Care Plan~~ Problem: Fractured tooth, abscess, or dental caries Goal: Decreased pain. Dental repair/extraction is completed by dentist. Instructions: Practice good oral hygiene. Take medications as prescribed. Follow up with your dentist or [facility] as directed. Functional Status No functional status results. Allergies, Adverse Reactions, Alerts Allergen Type Severity Reaction Status Last Updated No Known Drug Allergies Allergy Unknown Active 0 10/12/16 Immunizations No Known History of Immunizations. Vital Signs Vital Reading Collection Date/Time Result Blood Pressure 10/13/16 8:13am 130/78 Blood Pressure Source 10/13/16 8:13am Sitting Temperature 10/13/16 8:13am 97.6 F Temperature Source 10/13/16 8:13am Oral Respiratory Rate 10/13/16 8:13am 18 Pulse Rate 10/12/16 7:27pm 94 Pulse Location 10/12/16 7:27pm Pulse Oximetry Bedside Pulse Oximetry 10/13/16 8:13am 99 Height 10/13/16 8:13am 6 ft 2.02 in Height 10/13/16 8:13am 188 cm Weight 10/13/16 8:13am 170 lb Weight 10/13/16 8:13am 77.3 kg Body Mass Index 10/13/16 8:13am 21.9 kg/m2 Results Laboratory Results Test Name Result Units Flags Reference Collection Date/Time Result Date/Time Comments White Blood Count 10.4 K/mm3 4.8-10.8 10/13/16 8:30am 10/13 8:42am Red Blood Count 5.03 M/mm3 4.20-5.60 10/13/16 8:30am 8:42am Hemoglobin 14.8 g/dl 13.5-18.0 10/13/16 8:30am 10/13/16 8: 42am Hematocrit 44.1 % 42.0-52.0 10/13/16 8:30am 10/13/16 8: 42am Mean Corpuscular Volume 88 fl 80.0-100.0 10/13/16 8:30 am 10/13/16 8:42am Mean Corpuscular Hemoglobin 29 pg 27.0-31.0 10/13/16 8 :3010/13/16 8:42am Mean Corpuscular Hemoglobin Concent 34 g/dl 33.0 -37.0 10/13/16 8:30am 10/13/16 8:42am Red Cell Distribution Width 12.5 % 11.5-14.5 10/13/16 8 :30am 10/13/16 8:42am Platelet Count 256 K/mm3 130-400 10/13/16 8:30am 10/13/16 8:42am Mean Platelet Volume 9.4 fl 7.4-10.4 10/13/16 8:30am 8:42am Granulocytes (%) 65.1 % 42.2-75.2 10/13/16 8:3010/13 8:42am Lymphocytes % 22.6 % 20.0-51.0 10/13/16 8:3010/13/16 8:42am Monocytes % 9.8 % H 1.7-9.3 10/13/16 8:10/13/16 8:4 2am Eosinophils % 1.5 % 0-4.0 10/13/16 8:10/13/16 8 :42am Basophils % 0.7 % 0.0-2.0 10/13/16 8:10/13/16 8:4 2am Granulocytes # 6.8 H 1.4-6.5 10/13/16 8:3010/13/16 8:42am Lymphocytes # 2.4 1.2-3.4 10/13/16 8:10/13/16 8 :42am Monocytes # 1.0 H 0.1-0.6 10/13/16 8:10/13/16 8:4 2am Eosinophils # 0.2 0.0-0.7 10/13/16 8:30am 10/13/16 8 :42am Basophils # 0.1 0.0-0.2 10/13/16 8:30am 10/13/16 8:4 2am Urine Collection Type CLEAN CATCH 10/13/16 8:30a m 10/13/16 8:32am Urine Color Straw 10/13/16 8:30am 10/13/16 8:5 2am Urine Appearance Clear 10/13/16 8:30am 7 8:52am Urine Specific [place] 1.005 1.005-1.035 10/13/16 8:30 am 10/13/16 8:52am Urine pH 6 5-8 10/13/16 8:30am 10/13/16 8:52am Urine Protein Negative NEGATIVE 10/13/16 8:30am 10/13/16 8:52am Urine Glucose Negative NEGATIVE 10/13/16 8:30am 10/13/16 8:52am Urine Ketones Negative NEGATIVE 10/13/16 8:30am 10/13/16 8:52am Urine Bilirubin Negative NEGATIVE 10/13/16 8:30am 8:52am Urine Urobilinogen Negative mg/dL NEGATIVE 10/13/16 8:30am 8:52am Urine Nitrate Negative NEGATIVE 10/13/16 8:30am 10/13/16 8:52am Urine Blood 2+ H NEGATIVE 10/13/16 8:30am 10/13/16 8: 52am Urine Leukocyte Esterase Negative NEGATIVE 10/13/16 8:30 am 10/13/16 8:52am Urine WBC 0-2 /hpf 10/13/16 8:30am 10/13/16 8:52a m Urine RBC 20-50 /hpf H 10/13/16 8:30am 10/13/16 8:52a m Urine Squamous Epithelial Cells None Seen /hpf 10/13/16 8:30am 10/13/16 8:52am Urine Mucus Present /lpf 10/13/16 8:30am 10/13/16 8:5 2am Urine Bacteria None Seen /hpf 10/13/16 8:30am 7 8:52am Glucose Level 105 mg/dL 74-106 10/13/16 8:30am 10/13/16 9 :16am Blood Urea Nitrogen 16 mg/dL 9-20 10/13/16 8:30am 0501/02 9:16am Creatinine 0.99 mg/dL 0.66-1.25 10/13/16 8:30am 10/13/16 9: 16am Estimated GFR () 111 7 8:30am 10/13/16 9:16am Estimated GFR (Non- 92 09/17 01/02 8:30am 10/13/16 9:16am eGFR Interpretation: Chronic Kidney Disease = CKD [...] muscle mass, or nutritional status. Sodium Level 143 mmol/L 137-145 10/13/16 8:30am 10/13/16 9: 16am Potassium Level 3.6 mmol/L 3.4-5.0 10/13/16 8:30am 10/13/16 9:16am Chloride Level 104 mmol/L 98-107 10/13/16 8:30am 10/13/16 9:16am Carbon Dioxide Level 24 mmol/L 22-30 10/13/16 8:30am 9:16am Anion Gap 15 mmol/L 7-16 10/13/16 8:3010/13/16 9:16a m Calcium Level 10.1 mg/dL 8.4-10.2 10/13/16 8:3010/13/16 9:16am Calcium Adjusted for Albumin 9.8 mg/dL 8.4-10.2 0 10/13/16 8:3010/13/16 9:16am Serum Total Protein 7.4 gm/dL 6.4-8.2 10/13/16 8:3009/17 9:16am Albumin 4.4 gm/dL 3.5-5.0 10/13/16 8:30am 10/13/16 9:16am Total Bilirubin 1.3 mg/dL H 0.0-1.0 10/13/16 8:3010/13/16 9:16am Aspartate Amino Transf (AST/SGOT) 27 U/L 15-37 10/13/16 8:30am 10/13/16 9:16am Alanine Aminotransferase (ALT/SGPT) 27 U/L 21-7 2 10/13/16 8:30am 10/13/16 9:16am Alkaline Phosphatase 63 U/L 50-136 10/13/16 8:30am 9:16am Lipase 47 U/L 23-300 10/13/16 8:30am 10/13/16 9:16am C-Reactive Protein < 0.5 mg/dL 0.0-0.9 10/13/16 8:30am 10/13 9:16am Thyroid Stimulating Hormone (TSH) 1.000 uIU/mL 0.465- 4.680 09/17/16 8:32pm 09/18/16 12:20pm Procedures No Known History of Procedures. Encounters Encounter Location Arrival/Admit Date Discharge/Depart Date Attending Provider Registered Emergency [facility] 10/13/16 8:10am GUCCI REYNAGA Departed Emergency [facility] 10/12/16 7:22p 10/12/16 8:46pm ALMITA ESTEVEZ Departed Emergency [facility] 10/10/16 9:43p 10/10/16 11:02pm ALMITA ESTEVEZ Registered Referral [facility] 09/18/16 9:55am Jennifer Machuca
--- OUTSIDE RECORDS SUMMARY | 2019-09-20 01:05 | XMS REPORT | Continuity of Care Document ---
Author Author Via [facility] [employer]. Organization [facility]. Address [address] [place] [address] Phone Unavailable Care Team Providers Care Assistant Reading Teacher Name Role Phone Patient States, No PCP [...] 10/12/16 Active Abdominal pain Unknown 10/13/16 Active Medications Current Home Medications Medication Dose Units Route Directions Days/Qty Instructions Star t Date ALPRAZolam (Xanax) 0.5 MG TABLET 0.5 MG By Mouth as needed for Anxiety Amoxicillin (Amoxil*) 500 MG CAPSULE 500 MG By Mouth Three time s daily 30 10/10/16 HYDROcodone/Acetaminophen ([place]) 5 MG/325 MG TABLET 1 T AB By Mouth Every six hours as needed as needed for Pain 14 10/12 Past Home Medications Medication Directions Ordered Status Hydrocodone/Acetaminophen ([place]) 5 Mg/325 Mg Tablet T ablet, 1 Tab By Mouth Every 4-6 hours as needed as needed for Pain 10/10/16 Discontin ued No Home Medications , Unknown Disconti nued Social History Query Response Start Date Stop Date Smoking status: Current every day smoker Hospital Discharge Instructions No hospital discharge instructions. Plan of Care Discharge Date 10/13/16 Disposition 01-HOME, SELF-CARE,ASST [facility] NG Condition at Discharge Stable Instructions/Education Provided Acute Abdomen (Bridget dunn) Prescriptions See Medications Section Referrals Patient States, No PCP - Romelia Winkler - Additional Instructions/Education REST AND PUSH FLUIDS . F/U WITH YOUR DOCTOR THIS WEEK. Some of your test results may not [...] worrisome symptoms. * Emergency Department phone number: [phone] MEDICAL RECORD If you need copies of your X-rays, call [phone]. If you need copies of your medical [...] BILLING ALLIANCE PARTY Emergency [facility]. ED Physician Services [phone] X-rays [place] [facility] Patients will receive bills for services from the appropriate provider. If you have any questions about your [facility] bill, our staff will be happy to assist you. Please call [phone] and ask for the billing department. THANK YOU for choosing [facility] as your emergency care provider. Care Plan and Goals ~~Discharge Care Plan~~ Problem: Abdominal pain Goal: Decreased level of pain. Return to usual activities. Instructions: Take medication(s) as directed; follow up with primary care physician as directed; follow patient home care instructions. Functional Status No functional status results. Allergies, Adverse Reactions, Alerts Allergen Type Severity Reaction Status Last Updated No Known Drug Allergies Allergy Unknown Active 0 10/12/16 Immunizations No Known History of Immunizations. Vital Signs Vital Reading Collection Date/Time Result Blood Pressure 10/13/16 10:31am 117/77 Blood Pressure Source 10/13/16 10:31am Supine Temperature 10/13/16 8:13am 97.6 F Temperature Source 10/13/16 8:13am Oral Respiratory Rate 10/13/16 10:31am 18 Pulse Rate 10/13/16 10:31am 60 Bedside Pulse Oximetry 10/13/16 10:31am 98 Height 10/13/16 8:13am 6 ft 2.02 in [...] Corpuscular Hemoglobin 29 pg 27.0-31.0 10/13/16 8 :30am 10/13/16 8:42am Mean Corpuscular Hemoglobin Concent 34 g/dl 33.0 -37.0 10/13/16 8:30am 10/13/16 8:42am Red Cell Distribution Width 12.5 % 11.5-14.5 10/13/16 8 :30am 10/13/16 8:42am Platelet Count 256 K/mm3 130-400 10/13/16 8:30am 10/13/16 8:42am Mean Platelet Volume 9.4 fl 7.4-10.4 10/13/16 8:30am 8:42am Granulocytes (%) 65.1 % 42.2-75.2 10/13/16 8:30am 10/13 8:42am Lymphocytes % 22.6 % 20.0-51.0 10/13/16 8:30am 10/13/16 8:42am Monocytes % 9.8 % H 1.7-9.3 10/13/16 8:30am 10/13/16 8:4 2am Eosinophils % 1.5 % 0-4.0 10/13/16 8:30am 10/13/16 8 :42am Basophils % 0.7 % 0.0-2.0 10/13/16 8:30am 10/13/16 8:4 2am Granulocytes # 6.8 H 1.4-6.5 10/13/16 8:30am 10/13/16 8:42am Lymphocytes # 2.4 1.2-3.4 10/13/16 8:30am 10/13/16 8 :42am Monocytes # 1.0 H 0.1-0.6 10/13/16 8:30am 10/13/16 8:4 2am Eosinophils # 0.2 0.0-0.7 10/13/16 8:30am 10/13/16 8 :42am Basophils # 0.1 0.0-0.2 10/13/16 8:30am 10/13/16 8:4 2am Urine Collection Type CLEAN CATCH 10/13/16 8:30a m 10/13/16 8:32am Urine Color Straw 10/13/16 8:30am 10/13/16 8:5 2am Urine Appearance Clear 10/13/16 8:30am 7 8:52am Urine Specific [place] 1.005 1.005-1.035 10/13/16 8:30 am 10/13/16 8:52am [...] Urea Nitrogen 16 mg/dL 9-20 10/13/16 8:30am 09/17 01/02 9:16am Creatinine 0.99 mg/dL 0.66-1.25 10/13/16 8:30am [...] status. Sodium Level 143 mmol/L 137-145 10/13/16 8:3010/13/16 9: 16am Potassium Level 3.6 mmol/L 3.4-5.0 10/13/16 8:3010/13/16 9:16am Chloride Level 104 mmol/L 98-107 10/13/16 8:3010/13/16 9:16am Carbon Dioxide Level 24 mmol/L 22-30 10/13/16 8:30 9:16am Anion Gap 15 mmol/L 7-16 10/13/16 8:3010/13/16 9:16a m Calcium Level 10.1 mg/dL 8.4-10.2 10/13/16 8:3010/13/16 9:16am Calcium Adjusted for Albumin 9.8 mg/dL 8.4-10.2 0 10/13/16 8:3010/13/16 9:16am Serum Total Protein 7.4 gm/dL 6.4-8.2 10/13/16 8:30/01/02 9:16am Albumin 4.4 gm/dL 3.5-5.0 10/13/16 8:3010/13/16 9:16am Total Bilirubin 1.3 mg/dL H 0.0-1.0 10/13/16 8:3010/13/16 9:16am Aspartate Amino Transf (AST/SGOT) 27 U/L 15-37 10/13/16 8:3010/13/16 9:16am Alanine Aminotransferase (ALT/SGPT) 27 U/L 21-7 2 10/13/16 8:3010/13/16 9:16am Alkaline Phosphatase 63 U/L 50-136 10/13/16 8:30 9:16am Lipase 47 U/L 23-300 10/13/16 8:30am 10/13/16 9:16am C-Reactive Protein < 0.5 mg/dL 0.0-0.9 10/13/16 8:30am 10/13 9:16am Thyroid Stimulating Hormone (TSH) 1.000 uIU/mL 0.465- 4.680 09/17/16 8:32pm 09/18/16 12:20pm Procedures No Known History of Procedures. Encounters Encounter Location Arrival/Admit Date Discharge/Depart Date Attending Provider Departed Emergency [facility] 10/13/16 8:10a m 10/13/16 10:28am GUCCI REYNAGA Departed Emergency [facility] 10/12/16 7:22p m 10/12/16 8:46pm ALMITA ESTEVEZ Departed Emergency [facility] 10/10/16 9:43p m 10/10/16 11:02pm ALMITA ESTEVEZ Registered Referral [facility] 09/18/16 9:55am Jennifer Machuca Encounter Diagnosis Onset Date Abdominal pain
--- OUTSIDE RECORDS SUMMARY | 2019-09-20 01:05 | XMS REPORT | Continuity of Care Document ---
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 Name Role Phone Unavailable Unavailable Insurance Providers Payer Name Policy Number Subscriber Name Relationship Self-Pay Self-Pay [id number] MARQUEZ Self Advance Directives Directive Response Recorded Date/Time Advance Directives: No 09/17/16 7:39pm Chief Complaint and Reason for Visit Reason for Visit ER Problems Active Medical Problems Problem Onset Date Recorded Date Status Influenza due to Influenza A virus Unknown 05/16/13 Active Anxiety disorder Unknown 09/17/16 Active Heart palpitations Unknown 09/17/16 Active Fatigue Unknown 09/17/16 Active Stress and adjustment reaction Unknown 09/17/16 A ctive Medications Past Home Medications Medication Directions Ordered Status No Home Medications Ea Ea, Unknown Disc ontinued Oseltamivir Phosphate (Tamiflu) 75 Mg Cap Cap, 75 Mg Po Twice da rachelle 05/16/13 Discontinued Family History Relationship Name Date [...] discharge instructions. Plan of Care Discharge Date 09/17/16 Disposition HOME, SELF CARE, ASST LIVING Condition at Discharge Stable Instructions/Education Provided Anxiety, Adult (DC) Tips to Help You Worry Less Stress Forms Provided Work Release Prescriptions See Medications Section Referrals [facility] - [facility] - 7-10 days Additional Instructions/Education -Call [facility] in the am for Crisis appt at -Repeat Xanax after arriving home if sym ptoms return, persist -Establish with a local PCP for ongoing care -Thyroid function test is pending -See handout for home care and reasons t o seek immediate medical attention Some of your test results may not [...] worrisome symptoms. * Emergency Department phone number: [phone] MEDICAL RECORD If you need copies of your X-rays, call [phone]. If you need copies of your medical [...] [employer] Emergency Room Services [facility] Physician Services [facility] X-rays (Interpretation) [facility] Patients will receive bills for services from the appropriate provider. If you have any questions about your [facility] bill, our staff will be happy to assist you. Please call [phone] and ask for the billing department. THANK YOU for choosing [facility] as your emergency care provider. Care Plan and Goals ~~Discharge Care Plan~~ Problem: Problems with coping. Goal: Patient will use appropriate resources to deal with life situations. Instructions: Call [facility] hotline @ [phone] or , for assistance. Maintain No Harm discharge contract. Follow up with screener as directed. 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: Y September 17, 2016 7:39pm Allergies, Adverse Reactions, Alerts Allergen Type Severity Reaction Status Last Updated No Known Drug Allergies Allergy Unknown Active 0 09/17/16 Immunizations Name Date Given Type Tetanus Less than 5 years ago Historical Vital Signs Vital Reading Collection Date/Time Result Blood Pressure 09/17/16 10:13pm 135/84 Blood Pressure Source 09/17/16 10:13pm Sitting Patient Temperature 09/17/16 10:13pm 97.7 Temperature Source 09/17/16 10:13pm Oral Respiratory Rate 09/17/16 10:13pm 20 Pulse Rate 09/17/16 10:13pm 101 Pulse Location 09/17/16 10:13pm Machine Bedside Pulse Oximetry 09/17/16 10:13pm 100 Height 05/16/13 0:23am 188.0 cm Height 09/17/16 7:39pm 6 ft 02 in Weight 09/17/16 7:39pm 77.3 kg Weight 09/17/16 7:39pm 170 lb Body Mass Index 09/17/16 7:39pm 21.9 Results Laboratory Results Test Name Result Units Flags Reference Collection Date/Time Result Date/Time Comments White Blood Count 8.4 K/mm3 4.8-10.8 09/17/16 8:32pm 09/17 8:46pm Red Blood Count 5.43 M/mm3 4.20-5.60 09/17/16 8:32pm 8:46pm Hemoglobin 16.0 g/dL 13.5-18.0 09/17/16 8:32pm 09/17/16 8: 46pm Hematocrit 46.6 % 42.0-52.0 09/17/16 8:32pm 09/17/16 8: 46pm Mean Corpuscular Volume 86 fl 78-100 09/17/16 8:32pm 09/17/16 8:46pm Mean Corpuscular Hemoglobin 30 pg 27-31 09/17/16 8:3 2pm 09/17/16 8:46pm Mean Corpuscular Hemoglobin Concent 34 g/dL 33-3 7 09/17/16 8:32pm 09/17/16 8:46pm Red Cell Distribution Width 12.5 % 11.5-14.5 09/17/16 8 :32pm 09/17/16 8:46pm Platelet Count 325 K/mm3 130-400 09/17/16 8:32pm 09/17/16 8:46pm Mean Platelet Volume 9.3 fl 7.4-10.4 09/17/16 8:32pm 8:46pm Absolute Neutrophils (auto) 51.5 % 42.0-75.2 09/17/16 8 :32pm 09/17/16 8:46pm Lymphocytes % 35.1 % 20.0-51.0 09/17/16 8:32pm 09/17/16 8:46pm Monocytes % 10.0 % 1.0-10.0 09/17/16 8:32pm 09/17/16 8: 46pm Eosinophils % 2.6 % 0.0-4.0 09/17/16 8:32pm 09/17/16 8 :46pm Basophils % 0.6 % 0.0-2.0 09/17/16 8:32pm 09/17/16 8:4 6pm JESSICA # 4.3 1.40-6.50 09/17/16 8:32pm 09/17/16 8:46p m Lymphocytes # 3.0 1.50-4.00 09/17/16 8:32pm 09/17/16 8:46pm Monocytes # 0.8 0.20-0.80 09/17/16 8:32pm 09/17/16 8 :46pm Eosinophils # 0.2 0.04-0.40 09/17/16 8:32pm 09/17/16 8:46pm Basophils # 0.1 0.02-0.10 09/17/16 8:32pm 09/17/16 8 :46pm Glucose Level 74 mg/dL L 75-110 09/17/16 8:32pm 09/17/16 8 :57pm Blood Urea Nitrogen 12 mg/dL 9-20 09/17/16 8:32pm 07/05 8:57pm Creatinine 0.7 mg/dL L 0.8-1.5 09/17/16 8:[facility]09/17/16 8:57 pm Estimated GFR () 166 7 8:09/17/16 8:57pm Estimated GFR (Non- 137 07/05 8:32p09/17/16 8:57pm eGFR Interpretation: Chronic Kidney Disease = CKD [...] or nutritional status. BUN/Creatinine Ratio 15.4 6.0-26.0 09/17/16 8:32p 8:57pm Sodium Level 138 mmol/L 137-145 09/17/16 8:[facility]09/17/16 8: 57pm Potassium Level 3.6 mmol/L 3.6-5.0 09/17/16 8:[facility]09/17/16 8:57pm Chloride Level 100 mmol/L 98-107 09/17/16 8:[facility]09/17/16 8:57pm Carbon Dioxide Level 28 mmol/L 22-30 09/17/16 8:[facility]07/05 8:57pm Calcium Level 9.7 mg/dL 8.4-10.2 09/17/16 8:[facility] 09/17/16 8:57pm Serum Total Protein 7.9 g/dL 6.3-8.2 09/17/16 8:32p 07/05 8:57pm Albumin 4.5 g/dL 3.5-5.0 09/17/16 8:[facility] 09/17/16 8:57pm Total Bilirubin 0.7 mg/dL 0.2-1.3 09/17/16 8:[facility] 09/17/16 8:57pm Aspartate Amino Transf (AST/SGOT) 30 U/L 17-59 09/17/16 8:[facility] 09/17/16 8:57pm Alanine Aminotransferase (ALT/SGPT) 34 U/L 21-7 2 09/17/16 8:32pm 09/17/16 8:57pm Alkaline Phosphatase 76 U/L 38-126 09/17/16 8:32pm 07/05 8:57pm Creatine Kinase 187 U/L H 55-170 09/17/16 8:32pm 09/17/16 8:57pm Creatine Kinase MB 2.0 ng/mL 0.6-3.5 09/17/16 8:32pm 09/17 9:31pm Troponin I < 0.03 ng/mL 0.00-0.06 09/17/16 8:32pm 09/17/16 9: 31pm Urine Collection Type CLEAN CATCH 09/17/16 8:26p m 09/17/16 9:06pm Urine Color YELLOW 09/17/16 8:26pm 09/17/16 9:0 6pm Urine Appearance HAZY 09/17/16 8:26pm 7 9:06pm Urine Specific [place] 1.014 1.001-1.035 09/17/16 8:26 pm 09/17/16 9:06pm PH-URINE 8.0 5.0 - 8.0 09/17/16 8:26pm 09/17/16 9:06 pm Urine Protein NEGATIVE mg/dL NEGATIVE 09/17/16 8:26pm 09/17/16 9:06pm Urine Glucose (UA) NEGATIVE mg/dL NEGATIVE 09/17/16 8:26pm 07/05 9:06pm Urine Ketones NEGATIVE NEGATIVE 09/17/16 8:26pm 09/17/16 9:06pm Urine Bilirubin NEGATIVE NEGATIVE 09/17/16 8:26pm 9:06pm Urine Urobilinogen NORMAL NORMAL 09/17/16 8:26pm 09/17 9:06pm Urine Nitrate NEGATIVE NEGATIVE 09/17/16 8:26pm 09/17/16 9:06pm Urine Blood NEGATIVE NEGATIVE 09/17/16 8:26pm 09/17/16 9 :06pm Urine Leukocyte Esterase NEGATIVE NEGATIVE 09/17/16 8:26 pm 09/17/16 9:06pm Urine WBC 0 /hpf 0-3 09/17/16 8:26pm 09/17/16 9:06p m Urine RBC 0 /hpf 0-3 09/17/16 8:26pm 09/17/16 9:06p m Urine Bacteria NONE NOT PRESENT 09/17/16 8:26pm 09/17 9:06pm Urine Mucus PRESENT H NOT PRESENT 09/17/16 8:26pm 09/17/16 9:06pm Urine Amorphous Sediment PRESENT H NOT PRESENT 07/05 8:26pm 09/17/16 9:06pm Urine Amphetamine Screen NEGATIVE ng/mL 09/17/16 8:26p m 09/17/16 9:05pm Interpretive Note: Cutoff 500 ng/mL Urine Barbiturates Screen NEGATIVE ng/mL 09/17/16 8:26 pm 09/17/16 9:05pm Interpretive Note: Cutoff 200 ng/mL Urine Benzodiazepines Screen NEGATIVE ng/mL 09/17/16 8 :26pm 09/17/16 9:05pm Interpretive Note: Cutoff 150 ng/mL Urine Buprenorphine Screen NEGATIVE ng/mL 09/17/16 8:2 6pm 09/17/16 9:05pm Interpretive Note: Cutoff 10 ng/mL Urine Cocaine Screen NEGATIVE ng/mL 09/17/16 8:26pm 9:05pm Interpretive Note: Cutoff 150 ng/mL Urine Methamphetamines Screen NEGATIVE ng/mL 09/17/16 8:26pm 09/17/16 9:05pm Interpretive Note: Cutoff 500 ng/mL Urine Methadone Screen NEGATIVE ng/mL 09/17/16 8:26pm 09/17/16 9:05pm Interpretive Note: Cutoff 200 ng/mL Urine Opiates Screen NEGATIVE ng/mL 09/17/16 8:26pm 9:05pm Interpretive Note: Cutoff 100 ng/mL Urine Oxycodone Screen NEGATIVE ng/mL 09/17/16 8:26pm 09/17/16 9:05pm Interpretive Note: Cutoff 100 ng/mL Urine Phencyclidine Screen NEGATIVE ng/mL 09/17/16 8:2 6pm 09/17/16 9:05pm Interpretive Note: Cutoff 25 ng/mL Urine Propoxyphene Screen NEGATIVE ng/mL 09/17/16 8:26 pm 09/17/16 9:05pm Interpretive Note: Cutoff 300 ng/mL Urine Tricyclic Antidepressants NEGATIVE ng/mL 09/17/16 8:26pm 09/17/16 9:05pm Interpretive Note: Cutoff 300 ng/mL Urine Cannabinoids Screen NEGATIVE ng/mL 09/17/16 8:26 pm 09/17/16 9:05pm Interpretive Note: Cutoff 50 ng/mL Procedures No Known History of Procedures. Encounters Encounter Location Arrival/Admit Date Discharge/Depart Date Attending Provider Departed Emergency [facility] 09/17/16 7:31pm 09/17/16 10 :13pm VISH LEE APRN Encounter Diagnosis Anxiety disorder Fatigue Palpitations Stress and adjustment reaction
--- OUTSIDE RECORDS SUMMARY | 2019-09-20 01:06 | XMS REPORT | Continuity of Care Document ---
Author Organization Unknown Address Unknown Phone Unavailable Allergies Active Description Code Type Severity Reaction Onset Reported/Identified Relationship to Patient Clinical Status Yes nkda nkda N/A N/A Yes MDX - No Known Drug Allergies - Nkd X2 5061 Drug Allergy Unknown N/A 013 Yes No Known Drug Allergies NKDA Drug Allergy Unknown N/A 01/23/2018 Yes No Known Drug Allergies [id number] Drug Allergy Unknown N/A 04/17/2019 Medications Medication Packaging Start Date St op Date Route Dosage Sig ER - Hydrodoc/Acet 5/325MG BTL OF 10 Pre-Pkg take home 08/24/2013 08/25/2013 Oral 1E A ONETIME LORazepam TAB Tablet 10/16/2013 10/17/2013 Oral 1MG ONETIME SOD CL 0.9% BAG 01/1701/30/2014 Intravenous 1EA CONT Morphine INJ SYG Solution 01/29/2014 01/30/2014 Intravenous 2MG Q30 MIN DEX 5%/ LACT RING Solution 01/29/2014 02/27/2014 Intravenous 1EA CONT Ondansetron Inj Solution 01/29/2014 02/27/2014 Intravenous 4MG PRN Q 4 H Ketorolac Inj Solution 01/29/2014 02/27/2014 Intravenous 30MG PRN Q 4 H oxyCODONE/ acet TAB Tablet 01/29/2014 02/27/2014 Oral 1EA PRN Q 4 H ER - Oxy/Acet TABS BTL OF 10 Pre-Pkg take home 01/29/2014 02/27/2014 Oral 1EA ONETIME diphenhydrAMINE cap Cap 12/18/2014 12/19/2014 Oral 50MG ONETIME LORazepam TAB Tablet 03/25/2018 03/26/2018 Oral 1MG ONETIME&0300 Colace (docusate sodium) 08/11/2018 Take 1 capsule by mouth twice a day 30 Percocet (oxycodone-acetaminophen) 08/11/2018 Take 1-2 tablet by mouth every six hours as needed for pain Problems Date Dx Coded Attending Type Code Diagnosis Diagnosed By 09/19/2013 BUDDY SIFUENTES W 305.1 09/19/2013 BUDDY SIFUENTES W 338.29 09/19/2013 BUDDY SIFUENTES 719.43 10/28/2014 A V72.69 09/17/2016 JENNIFER LEE APRN W F41.9 ANXIETY DISORDER, UNSPECIFIED 09/17/2016 JENNIFER LEE APRN W F43.9 REACTION TO SEVERE STRESS, UNSPECIFIED 09/17/2016 JENNIFER LEE APRN A R00.2 PALPITATIONS 09/17/2016 JENNIFER LEE APRN W R53.81 OTHER MALAISE 09/17/2016 JENNIFER LEE APRN W R53.83 OTHER FATIGUE 09/19/2016 Jennifer Lee A Z01. 89 ENCOUNTER FOR OTHER SPECIFIED SPECIAL EX 10/10/2016 Jennifer Lee A Z01. 89 ENCOUNTER FOR OTHER SPECIFIED SPECIAL EX 10/10/2016 ALMITA ESTEVEZ F17.210 NICOTINE DEPENDENCE, CIGARETTES, UNCOMPL 10/10/2016 ALMITA ESTEVEZ K02.9 DENTAL CARIES, UNSPECIFIED 10/10/2016 ALMITA ESTEVEZ K08.89 OTHER SPECIFIED DISORDERS OF TEETH AND S 10/12/2016 ALMITA ESTEVEZ F17.210 NICOTINE DEPENDENCE, CIGARETTES, UNCOMPL 10/12/2016 ALMITA ESTEVEZ F41.9 ANXIETY DISORDER, UNSPECIFIED 10/12/2016 ALMITA ESTEVEZ K02.9 DENTAL CARIES, UNSPECIFIED 10/12/2016 ALMITA ESTEVEZ K08.89 OTHER SPECIFIED DISORDERS OF TEETH AND S 10/12/2016 ALMITA ESTEVEZ K21.9 GASTRO- ESOPHAGEAL REFLUX DISEASE WITHOUT 10/13/2016 GUCCI REYNAGA F17.21 0 NICOTINE DEPENDENCE, CIGARETTES, UNCOMPL 10/13/2016 GUCCI REYNAGA F41.9 ANXIETY DISORDER, UNSPECIFIED 10/13/2016 GUCCI REYNAGA K21.9 GASTRO-ESOPHAGEAL REFLUX DISEASE WITHOUT 10/13/2016 GUCCI REYNAGA R10.84 GENERALIZED ABDOMINAL PAIN 10/13/2016 GUCCI REYNAGA R10.9 UNSPECIFIED ABDOMINAL PAIN 10/13/2016 GUCCI REYNAGA R31.9 HEMATURIA, UNSPECIFIED 10/13/2016 GUCCI REYNAGA Kiki Z90.89 ACQUIRED ABSENCE OF OTHER ORGANS 11/28/2016 Jennifer Lee Z01. 89 ENCOUNTER FOR OTHER SPECIFIED SPECIAL EX 12/03/2016 BUDDY SIFUENTES Kiki F17.200 NICOTINE DEPENDENCE, UNSPECIFIED, UNCOMP 12/03/2016 BUDDY SIFUENTES Kiki F41.9 ANXIETY DISORDER, UNSPECIFIED 12/03/2016 BUDDY SIFUENTES Kiki J32.9 CHRONIC SINUSITIS, UNSPECIFIED 12/03/2016 BUDDY SIFUENTES Kiki R42 DIZZINESS AND GIDDINESS 12/03/2016 BUDDY SIFUENTES Kiki R51 HEADACHE 12/03/2016 BUDDY SIFUENTES R55 SYNCOPE AND COLLAPSE 12/28/2016 JoséRoby F17.21 0 NICOTINE DEPENDENCE, CIGARETTES, UNCOMPL 12/28/2016 JoséRoby F41.9 ANXIETY DISORDER, UNSPECIFIED 12/28/2016 JoséRoby A R00.2 PALPITATIONS 03/05/2017 ALMITA ESTEVEZ R00.2 PALPITATIONS 03/05/2017 ALMITA ESTEVEZ R07.9 CHEST PAIN, UNSPECIFIED 03/05/2017 ALMITA ESTEVEZ R10.13 EPIGASTRIC PAIN 03/10/2017 MARIA BUDDY W F17.210 NICOTINE DEPENDENCE, CIGARETTES, UNCOMPL 03/10/2017 BUDDY SIFUENTES Kiki F41.9 ANXIETY DISORDER, UNSPECIFIED 03/10/2017 BUDDY SIFUENTES Kiki K21.9 GASTRO-ESOPHAGEAL REFLUX DISEASE WITHOUT 03/10/2017 HAYLEY SIFUENTESGARRICK Pompa R10.13 EPIGASTRIC PAIN 03/10/2017 HAYLEY SIFUENTESGARRICK Swanson Z90.89 ACQUIRED ABSENCE OF OTHER ORGANS 09/27/2017 Jennifer Lee Z01. 89 ENCOUNTER FOR OTHER SPECIFIED SPECIAL EX 09/27/2017 Emily KNOTT, Tara Swanson F17.210 NICOTINE DEPENDENCE, CIGARETTES, UNCOMPL 09/27/2017 Tara Diaz MD F41.9 ANXIETY DISORDER, UNSPECIFIED 09/27/2017 aTra Diaz MD R00.2 PALPITATIONS 09/27/2017 Tara Diaz MD Z90.89 ACQUIRED ABSENCE OF OTHER ORGANS 11/07/2017 Seda Rubin F17.210 NICOTINE DEPENDENCE, CIGARETTES, UNCOMPL 11/07/2017 eSda Rubin L02.213 CUTANEOUS ABSCESS OF CHEST WALL 11/07/2017 Seda Rubin L98.9 DISORDER OF THE SKIN AND SUBCUTANEOUS TI 01/23/2018 ALMITA ESTEVEZ F32.9 MAJOR DEPRESSIVE DISORDER, SINGLE EPISOD 01/23/2018 ALMITA ESTEVEZ F41.9 ANXIETY DISORDER, UNSPECIFIED 01/23/2018 ALMITA ESTEVEZ R11.2 NAUSEA WITH VOMITING, UNSPECIFIED 01/23/2018 ALMITA ESTEVEZ R19.7 DIARRHEA, UNSPECIFIED 01/23/2018 ALMITA ESTEVEZ Z90.89 ACQUIRED ABSENCE OF OTHER ORGANS 04/29/2018 THADDEUS COATS APRN F17.200 NICOTINE DEPENDENCE, UNSPECIFIED, UNCOMP 04/29/2018 THADDEUS COATS APRN M25.511 PAIN IN RIGHT SHOULDER 04/29/2018 THADDEUS COATS APRN S49.91XA UNSP INJURY OF RIGHT SHOULDER AND UPPER 04/29/2018 THADDEUS COATS APRN W18.39XA OTHER FALL ON SAME LEVEL, INITIAL ENCOUN 04/29/2018 THADDEUS COATS APRN Y99 .0 CIVILIAN ACTIVITY DONE FOR INCOME OR PAY 05/01/2018 Harley Perry F17.2 00 NICOTINE DEPENDENCE, UNSPECIFIED, UNCOMP 05/01/2018 Harley Perry J02.9 ACUTE PHARYNGITIS, UNSPECIFIED 05/01/2018 Harley Perry K21.9 GASTRO-ESOPHAGEAL REFLUX DISEASE WITHOUT 05/01/2018 Harley Perry Z20.8 18 CONTACT W AND EXPOSURE TO OTH BACT COMMU 06/05/2018 JENNIFER LEE APRN W A08.4 VIRAL INTESTINAL INFECTION, UNSPECIFIED 06/05/2018 JENNIFER LEE APRN F17.21 0 NICOTINE DEPENDENCE, CIGARETTES, UNCOMPL 06/05/2018 JENNIFER LEE APRN R07.9 CHEST PAIN, UNSPECIFIED 06/05/2018 JENNIFER LEE APRN A R11.10 VOMITING, UNSPECIFIED 06/05/2018 JENNIFER LEE APRN Z90.49 ACQUIRED ABSENCE OF OTHER SPECIFIED PART 06/24/2018 JENNIFER LEE APRN F17.21 0 NICOTINE DEPENDENCE, CIGARETTES, UNCOMPL 06/24/2018 JENNIFER LEE APRN F41.9 ANXIETY DISORDER, UNSPECIFIED 06/24/2018 JENNIFER LEE APRN M25.56 2 PAIN IN LEFT KNEE 06/24/2018 JENNIFER LEE APRN S80.02 XA CONTUSION OF LEFT KNEE, INITIAL ENCOUNTE 06/24/2018 JENNIFER LEE APRN Z90.49 ACQUIRED ABSENCE OF OTHER SPECIFIED PART 07/01/2018 Seda Rubin E86.0 DEHYDRATION 07/01/2018 Seda Rubin F17.210 NICOTINE DEPENDENCE, CIGARETTES, UNCOMPL 07/01/2018 Seda Rubin R53.81 OTHER MALAISE 07/01/2018 Seda Rubin Z90.49 ACQUIRED ABSENCE OF OTHER SPECIFIED PART 08/07/2018 THADDEUS COATS APRN F17.210 NICOTINE DEPENDENCE, CIGARETTES, UNCOMPL 08/07/2018 THADDEUS COATS APRN F41 .9 ANXIETY DISORDER, UNSPECIFIED 08/07/2018 THADDEUS COATS APRN K21 .9 GASTRO-ESOPHAGEAL REFLUX DISEASE WITHOUT 08/07/2018 THADDEUS COATS APRN A R12 HEARTBURN 08/07/2018 THADDEUS COATS APRN Z90 .49 ACQUIRED ABSENCE OF OTHER SPECIFIED PART 08/10/2018 THADDEUS COATS APRN F17.210 NICOTINE DEPENDENCE, CIGARETTES, UNCOMPL 08/10/2018 THADDEUS COATS APRN F41 .9 ANXIETY DISORDER, UNSPECIFIED 08/10/2018 THADDEUS COATS APRN K21 .9 GASTRO-ESOPHAGEAL REFLUX DISEASE WITHOUT 08/10/2018 THADDEUS COATS APRN S52.302A UNSP FRACTURE OF SHAFT OF LEFT RADIUS, I 08/10/2018 THADDEUS COATS APRN S69.92XA UNSP INJURY OF LEFT WRIST, HAND AND FING 08/10/2018 THADDEUS COATS APRN W18.30XA FALL ON SAME LEVEL, UNSPECIFIED, INITIAL 08/10/2018 THADDEUS COATS APRN Y92.[address] OF OCCURRENCE O 08/10/2018 THADDEUS COATS APRN Y93 .67 ACTIVITY, BASKETBALL 08/26/2018 JENNIFER LEE APRN F17.21 0 NICOTINE DEPENDENCE, CIGARETTES, UNCOMPL 08/26/2018 JENNIFER LEE APRN W F41.9 ANXIETY DISORDER, UNSPECIFIED 08/26/2018 JENNIFER LEE APRN W F43.0 ACUTE STRESS REACTION 08/26/2018 JENNIFER LEE APRN W K21.9 GASTRO-ESOPHAGEAL REFLUX DISEASE WITHOUT 08/26/2018 JENNIFER LEE APRN A R00.2 PALPITATIONS 08/26/2018 JENNIFER LEE APRN W Z90.49 ACQUIRED ABSENCE OF OTHER SPECIFIED PART 11/24/2018 THADDEUS COATS APRN W B34 .9 VIRAL INFECTION, UNSPECIFIED 11/24/2018 THADDEUS COATS APRN W F17.210 NICOTINE DEPENDENCE, CIGARETTES, UNCOMPL 11/24/2018 THADDEUS COATS APRN W F41 .9 ANXIETY DISORDER, UNSPECIFIED 11/24/2018 THADDEUS COATS APRN W K21 .9 GASTRO-ESOPHAGEAL REFLUX DISEASE WITHOUT 11/24/2018 THADDEUS COATS APRN A R11 .2 NAUSEA WITH VOMITING, UNSPECIFIED 11/24/2018 THADDEUS COATS APRN W Z90 .49 ACQUIRED ABSENCE OF OTHER SPECIFIED PART 12/11/2018 JENNIFER LEE APRN W B34.9 VIRAL INFECTION, UNSPECIFIED 12/11/2018 JENNIFER LEE APRN W F41.0 PANIC DISORDER [EPISODIC PAROXYSMAL ANXI 12/11/2018 JENNIFER LEE APRN A J02.9 ACUTE PHARYNGITIS, UNSPECIFIED 12/11/2018 JENNIFER LEE APRN W Z90.49 ACQUIRED ABSENCE OF OTHER SPECIFIED PART 01/04/2019 Seda Rubin R30.0 DYSURIA 01/04/2019 Seda Rubin R53.81 OTHER MALAISE 01/06/2019 Seda Rubin R30.0 DYSURIA 01/06/2019 Seda Rubin R53.81 OTHER MALAISE 02/28/2019 Seda Rubin R30.0 DYSURIA 02/28/2019 Seda Rubin R53.81 OTHER MALAISE 02/28/2019 Seda Rubin R30.0 DYSURIA 02/28/2019 Seda Rubin R53.81 OTHER MALAISE 02/28/2019 Harley Perry F17.2 10 NICOTINE DEPENDENCE, CIGARETTES, UNCOMPL 02/28/2019 iJgar Perrymannie Turcios W F41.0 PANIC DISORDER [EPISODIC PAROXYSMAL ANXI 02/28/2019 FreddiekarthikeyanJigarHarley J A R00.2 PALPITATIONS 03/04/2019 JENNIFER LEE APRN W F17.21 0 NICOTINE DEPENDENCE, CIGARETTES, UNCOMPL 03/04/2019 JENNIFER LEE APRN W F41.0 PANIC DISORDER [EPISODIC PAROXYSMAL ANXI 03/04/2019 JENNIFER LEE APRN W K21.9 GASTRO-ESOPHAGEAL REFLUX DISEASE WITHOUT 03/04/2019 JENNIFER LEE APRN W K30 FUNCTIONAL DYSPEPSIA 03/04/2019 JENNIFER LEE APRN A R12 HEARTBURN 03/04/2019 JENNIFER LEE APRN W Z90.49 ACQUIRED ABSENCE OF OTHER SPECIFIED PART 03/04/2019 JENNIFER LEE APRN W Z98.89 0 OTHER SPECIFIED POSTPROCEDURAL STATES 04/17/2019 Freddiekarthikeyan Harleymannie Swanson F17.2 10 NICOTINE DEPENDENCE, CIGARETTES, UNCOMPL 04/17/2019 FreddieHarley napier F41.0 PANIC DISORDER [EPISODIC PAROXYSMAL ANXI 04/17/2019 Harley Perry Tam W K21.9 GASTRO-ESOPHAGEAL REFLUX DISEASE WITHOUT 04/17/2019 FreddieHarley napier W Z90.4 9 ACQUIRED ABSENCE OF OTHER SPECIFIED PART 04/17/2019 FreddieHarley napier Z98.8 90 OTHER SPECIFIED POSTPROCEDURAL STATES Procedures There is no data. Results Test Result Range CBC - 10/16/13 14:20 HEMATOCRIT 41 % 36 - 48 HEMOGLOBIN 14.2 G/DL 12.0 - 17.0 MCH 29.8 PG 26.0 - 34.0 MCHC 34.6 % 30.0 - 36.0 MCV 86.0 FL 80.0 - 100.0 MPV 8.8 FL 9.5 - 10.5 PLATELET AUTOMATED 231 1000/UL 130 - 400 RBC-CBC 4.77 [id number]/UL 3.80 - 5.50 RDW-CV 12.7 % 11.7 - 14.3 WBC-CBC 5.9 1000/UL 4.0 - 11.0 VENIPUNCTURE - 10/16/13 14:20 VENIPUNCTURE DONE COMPREHENSIVE METABOLIC PANEL - 10/16/13 14:20 ALBUMIN 4.1 G/DL 3.9 - 4.9 BUN 10 MG/DL 9 - 23 CO2 26 MMOL/L 21 - 32 GLUCOSE 89 MG/DL 70 - 106 CREATININE, SERUM 0.9 MG/DL 0.7 - 1.5 SODIUM SERUM 140 MMOL/L 134 - 145 POTASSIUM SERUM 3.6 MMOL/L 3.5 - 5.1 CHLORIDE, SERUM 104 MMOL/L 96 - 108 CALCIUM LEVEL 8.8 MG/DL 8.5 - 10.1 BILIRUBIN TOTAL 0.8 MG/DL 0.1 - 1.7 ALKALINE PHOSPHATASE 63 U/L 50 - 136 AST (SGOT) 17 U/L 16 - 40 ALT (SGPT) 30 U/L 12 - 78 TOTAL PROTEIN 7.1 G/DL 6.8 - 8.1 TSH - 10/16/13 14:20 TSH 1.63 UIU/ML 0.36 - 3.74 DRUG SCREEN (IN HOUSE) - 10/16/13 14:25 BENZODIAZEPINES (BZO) NEGATIVE NEGATIVE METHAMPHETAMINE (mAMP) NEGATIVE NEGATIV E PHENCYCLIDINE (PCP) NEGATIVE NEGATIVE TRICYCLIC ANTIDEPRESSANTS (TCA) NEGATIVE NEGATIVE AMPHETAMINE (AMP) NEGATIVE NEGATIVE COCAINE (VIBHA) NEGATIVE NEGATIVE MARIJUANA (THC) NEGATIVE NEGATIVE OPIATES (OPI) NEGATIVE NEGATIVE BARBITURATES (BAR) NEGATIVE NEGATIVE METHADONE (MTD) NEGATIVE NEGATIVE CBC W/AUTODIFF - 01/28/14 23:20 BASO# 0.0 # 0.0 - 0.3 BASO% 0.4 % 0.0 - 3.0 EOS# 0.3 # 0.0 - 0.6 EOS% 3.0 % 0.0 - 5.0 HEMATOCRIT 43 % 36 - 48 HEMOGLOBIN 14.8 G/DL 12.0 - 17.0 LYMPHS# 4.1 # 1.0 - 4.8 LYMPHS% 36.8 % 24.0 - 44.0 MCH 29.8 PG/ML 26.0 - 34.0 MCHC 34.7 % 30.0 - 36.0 MCV 85.7 FL 80.0 - 100.0 MONO# 1.1 # 0.1 - 1.3 MONO% 10.0 % 2.0 - 12.0 MPV 9.0 FL 9.5 - 10.5 NEUT# 5.6 # 1.4 - 8.1 NEUT% 49.8 % 36.0 - 74.0 PLATELET AUTOMATED 295 1000/UL 130 - 400 RBC-CBC 4.97 [id number]/UL 3.80 - 5.50 RDW-CV 12.6 % 11.7 - 14.3 WBC-CBC 11.2 1000/UL 4.0 - 11.0 MANUAL DIFF? YES MANUAL DIFFERENTIAL - 01/28/14 23:20 SEGS DIFF 50 % 36 - 74 LYMPHS DIFF 37 % 24 - 44 ATYPICAL LYMPHS DIFF 1 % 0 - 2 MONOS DIFF 8 % 2 - 12 PLATELET ESTIMATE NORMAL NORMAL RBC MORPH DIFF NORMAL NORMAL EOS DIFF 4 % 0 - 5 CHARGE CBC ONLY - 01/28/14 23:20 CHARGE CBC ONLY DONE VENIPUNCTURE - 01/28/14 23:20 VENIPUNCTURE DONE COMPREHENSIVE METABOLIC PANEL - 01/28/14 23:20 ALBUMIN 4.5 G/DL 3.9 - 4.9 BUN 10 MG/DL 9 - 23 CO2 25 MMOL/L 21 - 32 GLUCOSE 87 MG/DL 70 - 106 CREATININE, SERUM 1.0 MG/DL 0.7 - 1.5 SODIUM SERUM 138 MMOL/L 134 - 145 POTASSIUM SERUM 3.5 MMOL/L 3.5 - 5.1 CHLORIDE, SERUM 102 MMOL/L 96 - 108 CALCIUM LEVEL 9.5 MG/DL 8.5 - 10.1 BILIRUBIN TOTAL 0.4 MG/DL 0.1 - 1.7 ALKALINE PHOSPHATASE 78 U/L 50 - 136 AST (SGOT) 21 U/L 16 - 40 ALT (SGPT) 31 U/L 12 - 78 TOTAL PROTEIN 8.0 G/DL 6.8 - 8.1 URINALYSIS - 01/28/14 23:25 NITRITE NEGATIVE NEGATIVE TRICHOMONAS NONE SEEN NONE SEEN UROBILINOGEN 0.2 EU/DL 0.2 COLOR UA YELLOW YELLOW CLARITY UA CLEAR CLEAR GLUCOSE, UR NEGATIVE NEGATIVE BILIRUBIN, UR NEGATIVE NEGATIVE KETONES UR NEGATIVE NEGATIVE SPECIFIC GRAVITY 1.020 SG 1.018 - 1.035 BLOOD, UR NEGATIVE NEGATIVE PH, UR 7.5 PH 5.0 - 6.0 PROTEIN, UR NEGATIVE NEGATIVE LEUKOCYTES ESTERASE NEGATIVE NEGATIVE WBC, UR 0-5 /HPF NONE SEEN RBC, UR 0-3 /HPF NONE SEEN EPITHELIAL CELLS 0-2 /HPF NONE SEEN BACTERIA UR NONE SEEN /HPF NONE SEEN MUCOUS UR NONE SEEN /HPF NONE SEEN CASTS UR NONE SEEN NONE SEEN CRYSTALS UR NONE SEEN NONE SEEN YEAST UR NEGATIVE NEGATIVE SPERMATOZOA UR NEGATIVE NEGATIVE BASIC METABOLIC PANEL - 01/29/14 07:35 BUN 9 MG/DL 9 - 23 CO2 26 MMOL/L 21 - 32 GLUCOSE 110 MG/DL 70 - 106 CREATININE, SERUM 0.9 MG/DL 0.7 - 1.5 SODIUM SERUM 139 MMOL/L 134 - 145 POTASSIUM SERUM 4.1 MMOL/L 3.5 - 5.1 CHLORIDE, SERUM 108 MMOL/L 96 - 108 CALCIUM LEVEL 8.3 MG/DL 8.5 - 10.1 CBC - 01/29/14 07:35 HEMATOCRIT 37 % 36 - 48 HEMOGLOBIN 12.8 G/DL 12.0 - 17.0 MCH 29.8 PG/ML 26.0 - 34.0 MCHC 34.3 % 30.0 - 36.0 MCV 86.9 FL 80.0 - 100.0 MPV 9.7 FL 9.5 - 10.5 PLATELET AUTOMATED 228 1000/UL 130 - 400 RBC-CBC 4.29 [id number]/UL 3.80 - 5.50 RDW-CV 12.5 % 11.7 - 14.3 WBC-CBC 12.2 1000/UL 4.0 - 11.0 VENIPUNCTURE - 01/29/14 07:35 VENIPUNCTURE DONE DRUG SCREEN (IN HOUSE) - 12/18/14 13:30 BENZODIAZEPINES (BZO) NEGATIVE 300 ng/ml NEGATIVE METHAMPHETAMINE (mAMP) POSITIVE 1,000 ng/dl NEGATIVE PHENCYCLIDINE (PCP) NEGATIVE 25 ng/dl NE GATIVE TRICYCLIC ANTIDEPRESSANTS (TCA) NEGATIVE 1,000 ng/ dl NEGATIVE AMPHETAMINE (AMP) NEGATIVE 1,000 ng/ml N EGATIVE COCAINE (VIBHA) NEGATIVE 300 ng/dl NEGATIV E MARIJUANA (THC) NEGATIVE 50 ng/dl NEGATI VE OPIATES (OPI) NEGATIVE 2,000 ng/dl NEGAT [place] BARBITURATES (BAR) NEGATIVE 300 ng/ml NE GATIVE METHADONE (MTD) NEGATIVE 300 ng/dl NEGAT [place]RIKA DRUGS OF ABUSE SCN, URINE - 09/17/16 20: 26 Age at Specimen Collection = a AMPHETAMINE URINE NEGATIVE ng/mL BARBITURATES URINE NEGATIVE ng/mL BENZODIAZEPINES URINE NEGATIVE ng/mL COCAINE URINE NEGATIVE ng/mL METHAMPHETAMINE URINE NEGATIVE ng/mL METHADONE URINE NEGATIVE ng/mL OPIATES URINE NEGATIVE ng/mL OXYCODONE URINE NEGATIVE ng/mL PHENCYCLIDINE URINE NEGATIVE ng/mL PROPOXYPHENE URINE NEGATIVE ng/mL TRICYCLIC ANTIDEPRESS URINE NEGATIVE ng/mL THC CANNABINOIDS URINE NEGATIVE ng/mL BUPRENORPHINE URINE NEGATIVE ng/mL Urinalysis - 09/17/16 20:26 RBC,URINE 0 /hpf 0-3 COLLECTION METHOD CLEAN CATCH URINE BACTERIA NONE NOT PRESENT Age at Specimen Collection = a Urine ketones detection by automated test strip NE GATIVE NEGATIVE Urine nitrite detection by test strip NEGATIVE NEGATIVE Urine pH measurement by automated test strip 8.0 5.0 - 8.0 Timed urine protein mass concentration measurement NEGATIVE mg/dL NEGATIVE Specific gravity of urine by automated test strip 1.014 1.001-1.035 Urine appearance determination HAZY Amorphous sediment detection in urine sediment by ligh t microscopy PRESENT NOT PRESENT Urine total bilirubin detection by automated test stri p NEGATIVE NEGATIVE Urine erythrocytes detection by automated method N EGATIVE NEGATIVE Color of urine by auto YELLOW Urine glucose detection by automated test strip NEGATIVE mg/dL NEGATIVE Urine leukocyte esterase detection by dipstick NEG ATIVE NEGATIVE Urine urobilinogen measurement by automated test strip (mass/volume) NORMAL NORMAL Automated urine sediment leukocyte count by microscopy (number/high power field) 0 /hpf 0-3 Mucus detection in urine sediment by light microscopy PRESENT NOT PRESENT THYROID STIMULATING HORMONE - 09/17/16 2 0:32 THYROID STIMULATING HORMONE 1.000 uIU/mL 0.465-4.680 Complete blood count (CBC) with automate d white blood cell (WBC) differential - 09/17/16 20:32 NEUTROPHILS % (AUTO) 51.5 % 42.0-75.2 LYMPHOCYTES % (AUTO) 35.1 % 20.0-51.0 ADD MANUAL DIFF NO Blood basophils count (number/volume) 0.1 0.02-0.10 Basophil percentage 0.6 % 0.0-2.0 Blood eosinophils count (number/volume) 0.2 0.04-0.40 Blood eosinophils/100 leukocytes 2.6 % 0.0-4.0 Automated blood hematocrit 46.6 % 42. 0-52.0 Blood hemoglobin measurement (mass/volume) 16.0 g/ dL 13.5- 18.0 Blood lymphocytes count (number/volume) 3.0 1.50-4.00 Automated erythrocyte mean corpuscular h emoglobin (mass per erythrocyte) 30 pg 27-31 Automated erythrocyte mean corpuscular h emoglobin concentration measurement (mass/volume) 34 g/dL 33-37 Automated erythrocyte mean corpuscular volume 86 f l 78-100 Blood monocytes count (number/volume) 0.8 0.20-0.80 Monocyte percentage 10.0 % 1.0-10.0 Automated blood platelet mean volume measurement 9 .3 fl 7.4- 10.4 Blood neutrophils count (number/volume) 4.3 1.40-6.50 Automated blood platelet count (count/volume) 325 K/mm3 130- 400 Blood erythrocytes automated count (number/volume) 5.43 M/mm3 4.20-5.60 Automated erythrocyte distribution width ratio 12. 5 % 11.5- 14.5 Blood leukocytes automated count (number/volume) 8 .4 K/mm3 4.8-10.8 Age at Specimen Collection = a Serum or plasma creatine kinase measurem ent (enzymatic activity/volume) - 09/17/16 20:32 Age at Specimen Collection = a Serum or plasma creatine kinase measurem ent (enzymatic activity/volume) 187 U/L 55-170 Comprehensive metabolic panel - 09/17/16 20:32 BLOOD UREA NITROGEN 12 mg/dL 9-20 Age at Specimen Collection = a Serum or plasma urea nitrogen/creatinine mass ratio 15.4 6.0-26.0 Serum or plasma calcium measurement (mass/volume) 9.7 mg/dL 8.4-10.2 Serum chloride measurement 100 mmol/L 98 -107 Serum or plasma carbon dioxide, total measurement (mol es/volume) 28 mmol/L 22-30 Serum or plasma creatinine measurement (mass/volume) 0.7 mg/dL 0.8-1.5 Serum or plasma glucose measurement (mass/volume) 74 mg/dL 75-110 Serum or plasma potassium measurement (moles/volume) 3.6 mmol/L 3.6-5.0 Serum or plasma sodium measurement (moles/volume) 138 mmol/L 137-145 eGFR 166 eGFR non 137 Serum or plasma albumin measurement (mass/volume) 4.5 g/dL 3.5-5.0 Alkaline phosphatase 76 U/L 38-126 Serum or plasma alanine aminotransferase measurement (enzymatic activity/volume) 34 U/L 21-72 Serum or plasma aspartate aminotransfera se measurement (enzymatic activity/volume) 30 U/L 17-59 Serum or plasma total bilirubin measurement (mass/volu me) 0.7 mg/dL 0.2-1.3 Serum or plasma protein measurement (mass/volume) 7.9 g/dL 6.3-8.2 Serum or plasma creatine kinase MB measu rement (mass/volume) - 09/17/16 20:32 Age at Specimen Collection = a Serum or plasma creatine kinase MB measurement (mass/v olume) 2.0 ng/mL 0.6-3.5 Serum or plasma troponin i.cardiac measu rement (mass/volume) - 09/17/16 20:32 Age at Specimen Collection = a Serum or plasma troponin i.cardiac measurement (mass/v olume) < 0.03 ng/mL 0.00-0.06 Serum or plasma thyrotropin measurement by detection limit lt;= 0.05 miu/l (units/volume) - 09/17/16 20:32 Age at Specimen Collection = a Serum or plasma thyrotropin measurement by detection limit lt;= 0.05 miu/l (units/volume) [facility] COMPLETE BLOOD CT w AutoDiff - 10/13/16 08:30 WHITE BLOOD COUNT 10.4 K/mm3 4.8-10.8 RED BLOOD COUNT 5.03 M/mm3 4.20-5.60 HEMOGLOBIN 14.8 g/dl 13.5-18.0 HEMATOCRIT 44.1 % 42.0-52.0 MEAN CORPUSCULAR VOLUME 88 fl 80.0-1 00.0 MEAN CORPUSCULAR HEMOGLOBIN 29 pg 27 .0-31.0 MEAN CORPUSCULAR HGB CONC 34 g/dl 33.0 -37.0 PLATELET COUNT 256 K/mm3 130-400 MEAN PLATELET VOLUME 9.4 fl 7.4-10.4 LYMPHOCYTES % (AUTO) 22.6 % 20.0-51.0 MONOCYTES % (AUTO) 9.8 % 1.7-9.3 EOSINOPHILS % (AUTO) 1.5 % 0-4.0 BASOPHILS % (AUTO) 0.7 % 0.0-2.0 LYMPHOCYTES # (AUTO) 2.4 1.2-3.4 MONOCYTES # (AUTO) 1.0 0.1-0.6 EOSINOPHILS # (AUTO) 0.2 0.0-0.7 BASOPHILS # (AUTO) 0.1 0.0-0.2 GRAN # 6.8 1.4-6.5 GRAN % 65.1 % 42.2-75.2 REDCELL DISTRIBUTION WIDTH-CV 12.5 % 11.5-14.5 URINALYSIS REFLEX CULTURE - 10/13/16 08: 30 COLOR,URINE Straw BILIRUBIN,URINE Negative NEGATIVE RBC,URINE 20-50 /hpf URINE WBC 0-2 /hpf COLLECTION METHOD CLEAN CATCH URINE KETONE Negative NEGATIVE MUCOUS Present /lpf URINE NITRATE Negative NEGATIVE PH 6 5-8 URINE PROTEIN(semi-quant) Negative NEGA TIVE SPECIFIC GRAVITY,URINE 1.005 1.005-1 .035 URINE APPEARANCE Clear URINE BACTERIA None Seen /hpf URINE BLOOD 2+ NEGATIVE URINE GLUCOSE Negative NEGATIVE URINE LEUKOCYTE ESTERASE Negative NEGAT CH[place]RIKA URINE UROBILINOGEN Negative mg/dL NEGATI VE SQUAMOUS EPITHELIAL None Seen /hpf COMPREHENSIVE METABOLIC PANEL - 10/13/16 08:30 SODIUM 143 mmol/L 137-145 POTASSIUM 3.6 mmol/L 3.4-5.0 CHLORIDE 104 mmol/L 98-107 CARBON DIOXIDE 24 mmol/L 22-30 ANION GAP 15 mmol/L 7-16 BLOOD UREA NITROGEN 16 mg/dL 9-20 GLUCOSE 105 mg/dL 74-106 CALCIUM 10.1 mg/dL 8.4-10.2 BILIRUBIN,TOTAL 1.3 mg/dL 0.0-1.0 ALKALINE PHOSPHATASE 63 U/L 50-136 ASPARTATE AMINO TRANSFERASE 27 U/L 15 -37 ALANINE AMINOTRANSFERASE 27 U/L 21-72 TOTAL PROTEIN 7.4 gm/dL 6.4-8.2 ALBUMIN 4.4 gm/dL 3.5-5.0 CREATININE, serum 0.99 mg/dL 0.66-1.25 ADJUSTED CALCIUM 9.8 mg/dL 8.4-10.2 eGFR 111 eGFR non 92 C-REACTIVE PROTEIN - 10/13/16 08:30 hs C REACTIVE PROTEIN < 0.5 mg/dL 0.0-0. 9 LIPASE - 10/13/16 08:30 LIPASE 47 U/L 23-[address] w AutoDiff - 12/03/16 00:05 WHITE BLOOD COUNT 12.4 K/mm3 4.8-10.8 RED BLOOD COUNT 5.08 M/mm3 4.20-5.60 HEMOGLOBIN 15.1 g/dl 13.5-18.0 HEMATOCRIT 44.4 % 42.0-52.0 MEAN CORPUSCULAR VOLUME 87 fl 80.0-1 00.0 MEAN CORPUSCULAR HEMOGLOBIN 30 pg 27 .0-31.0 MEAN CORPUSCULAR HGB CONC 34 g/dl 33.0 -37.0 PLATELET COUNT 272 K/mm3 130-400 MEAN PLATELET VOLUME 9.3 fl 7.4-10.4 LYMPHOCYTES % (AUTO) 20.0 % 20.0-51.0 MONOCYTES % (AUTO) 8.9 % 1.7-9.3 EOSINOPHILS % (AUTO) 1.8 % 0-4.0 BASOPHILS % (AUTO) 0.6 % 0.0-2.0 LYMPHOCYTES # (AUTO) 2.5 1.2-3.4 MONOCYTES # (AUTO) 1.1 0.1-0.6 EOSINOPHILS # (AUTO) 0.2 0.0-0.7 BASOPHILS # (AUTO) 0.1 0.0-0.2 GRAN # 8.5 1.4-6.5 GRAN % 68.3 % 42.2-75.2 REDCELL DISTRIBUTION WIDTH-CV 12.4 % 11.5-14.5 COMPREHENSIVE METABOLIC PANEL - 12/03/16 00:05 SODIUM 139 mmol/L 137-145 POTASSIUM 3.8 mmol/L 3.4-5.0 CHLORIDE 100 mmol/L 98-107 CARBON DIOXIDE 26 mmol/L 22-30 ANION GAP 13 mmol/L 7-16 BLOOD UREA NITROGEN 11 mg/dL 9-20 GLUCOSE 96 mg/dL 74-106 CALCIUM 9.7 mg/dL 8.4-10.2 BILIRUBIN,TOTAL 0.7 mg/dL 0.0-1.0 ALKALINE PHOSPHATASE 75 U/L 50-136 ASPARTATE AMINO TRANSFERASE 26 U/L 15 -37 ALANINE AMINOTRANSFERASE 29 U/L 21-72 TOTAL PROTEIN 7.8 gm/dL 6.4-8.2 ALBUMIN 4.7 gm/dL 3.5-5.0 CREATININE, serum 0.80 mg/dL 0.66-1.25 ADJUSTED CALCIUM 9.1 mg/dL 8.4-10.2 eGFR 143 eGFR non 118 TSH w REFLEX - 12/03/16 00:05 TSH w REFLEX 1.550 uIU/mL 0.465-4.680 HEMOGLOBIN HEMATOCRIT - 12/28/16 01:20 HEMOGLOBIN 13.8 g/dl 13.5-18.0 HEMATOCRIT 40.9 % 42.0-52.0 BASIC METABOLIC PANEL - 12/28/16 01:20 SODIUM 136 mmol/L 137-145 POTASSIUM 3.5 mmol/L 3.4-5.0 CHLORIDE 104 mmol/L 98-107 CARBON DIOXIDE 22 mmol/L 22-30 ANION GAP 9 mmol/L 7-16 BLOOD UREA NITROGEN 13 mg/dL 9-20 GLUCOSE 92 mg/dL 74-106 CALCIUM 9.0 mg/dL 8.4-10.2 CREATININE, serum 0.67 mg/dL 0.66-1.25 eGFR 175 eGFR non 145 TSH w REFLEX - 12/28/16 01:20 TSH w REFLEX 1.110 uIU/mL 0.465-4.[address] w AutoDiff - 03/05/17 16:25 WHITE BLOOD COUNT 9.3 K/mm3 4.8-10.8 RED BLOOD COUNT 5.09 M/mm3 4.20-5.60 HEMOGLOBIN 15.2 g/dl 13.5-18.0 HEMATOCRIT 44.5 % 42.0-52.0 MEAN CORPUSCULAR VOLUME 87 fl 80.0-1 00.0 MEAN CORPUSCULAR HEMOGLOBIN 30 pg 27 .0-31.0 MEAN CORPUSCULAR HGB CONC 34 g/dl 33.0 -37.0 PLATELET COUNT 302 K/mm3 130-400 MEAN PLATELET VOLUME 9.3 fl 7.4-10.4 LYMPHOCYTES % (AUTO) 22.2 % 20.0-51.0 MONOCYTES % (AUTO) 7.6 % 1.7-9.3 EOSINOPHILS % (AUTO) 0.9 % 0-4.0 BASOPHILS % (AUTO) 0.5 % 0.0-2.0 LYMPHOCYTES # (AUTO) 2.1 1.2-3.4 MONOCYTES # (AUTO) 0.7 0.1-0.6 EOSINOPHILS # (AUTO) 0.1 0.0-0.7 BASOPHILS # (AUTO) 0.1 0.0-0.2 GRAN # 6.4 1.4-6.5 GRAN % 68.6 % 42.2-75.2 REDCELL DISTRIBUTION WIDTH-CV 12.2 % 11.5-14.5 TROPONIN-I - 03/05/17 16:25 TROPONIN I < 0.012 ng/mL 0.000-0.034 COMPREHENSIVE METABOLIC PANEL - 03/05/17 16:28 SODIUM 140 mmol/L 137-145 POTASSIUM 4.0 mmol/L 3.4-5.0 CHLORIDE 105 mmol/L 98-107 CARBON DIOXIDE 23 mmol/L 22-30 ANION GAP 11 mmol/L 7-16 BLOOD UREA NITROGEN 8 mg/dL 9-20 GLUCOSE 94 mg/dL 74-106 CALCIUM 9.8 mg/dL 8.4-10.2 BILIRUBIN,TOTAL 0.7 mg/dL 0.0-1.0 ALKALINE PHOSPHATASE 73 U/L 50-136 ASPARTATE AMINO TRANSFERASE 22 U/L 15 -37 ALANINE AMINOTRANSFERASE 30 U/L 21-72 TOTAL PROTEIN 7.6 gm/dL 6.4-8.2 ALBUMIN 4.4 gm/dL 3.5-5.0 CREATININE, serum 0.88 mg/dL 0.66-1.25 ADJUSTED CALCIUM 9.5 mg/dL 8.4-10.2 eGFR 128 eGFR non [address] w AutoDiff - 09/27/17 04:08 WHITE BLOOD COUNT 9.1 k/mm3 4.8-10.8 RED BLOOD COUNT 5.19 M/mm3 4.20-5.60 HEMOGLOBIN 15.3 g/dl 13.5-18.0 HEMATOCRIT 45.2 % 42.0-52.0 MEAN CORPUSCULAR VOLUME 87 fl 80.0-1 00.0 MEAN CORPUSCULAR HEMOGLOBIN 30 pg 27 .0-31.0 MEAN CORPUSCULAR HGB CONC 34 g/dl 33.0 -37.0 PLATELET COUNT 300 K/mm3 130-400 MEAN PLATELET VOLUME 9.3 fl 7.4-10.4 LYMPHOCYTES % (AUTO) 42.3 % 20.0-51.0 MONOCYTES % (AUTO) 9.5 % 1.7-9.3 EOSINOPHILS % (AUTO) 3.6 % 0-4.0 BASOPHILS % (AUTO) 1.0 % 0.0-2.0 LYMPHOCYTES # (AUTO) 3.9 1.2-3.4 MONOCYTES # (AUTO) 0.9 0.1-0.6 EOSINOPHILS # (AUTO) 0.3 0.0-0.7 BASOPHILS # (AUTO) 0.1 0.0-0.2 GRAN # 4.0 1.4-6.5 GRAN % 43.4 % 42.2-75.2 REDCELL DISTRIBUTION WIDTH-CV 12.4 % 11.5-14.5 COMPREHENSIVE METABOLIC PANEL - 09/27/17 04:08 SODIUM 145 mmol/L 137-145 POTASSIUM 4.2 mmol/L 3.4-5.0 CHLORIDE 101 mmol/L 98-107 CARBON DIOXIDE 27 mmol/L 22-30 ANION GAP 17 mmol/L 7-16 BLOOD UREA NITROGEN 13 mg/dL 9-20 GLUCOSE 90 mg/dL 74-106 CALCIUM 10.7 mg/dL 8.4-10.2 BILIRUBIN,TOTAL 0.6 mg/dL 0.0-1.0 ALKALINE PHOSPHATASE 72 U/L 50-136 ASPARTATE AMINO TRANSFERASE 38 U/L 15 -37 ALANINE AMINOTRANSFERASE 27 U/L 21-72 TOTAL PROTEIN 8.8 gm/dL 6.4-8.2 ALBUMIN 4.5 gm/dL 3.5-5.0 CREATININE, serum 0.75 mg/dL 0.66-1.25 ADJUSTED CALCIUM 10.3 mg/dL 8.4-10.2 eGFR 152 eGFR non 126 MAGNESIUM - 09/27/17 04:08 MAGNESIUM 1.9 mg/dL 1.6-2.3 D-DIMER - 09/27/17 04:08 FIBRIN DEGRADATION PRODUCTS < 200.00 ng/mLDDu 200-[address] w AutoDiff - 01/23/18 17:52 WHITE BLOOD COUNT 6.5 k/mm3 4.8-10.8 RED BLOOD COUNT 5.10 M/mm3 4.20-5.60 HEMOGLOBIN 14.8 g/dl 13.5-18.0 HEMATOCRIT 44.6 % 42.0-52.0 MEAN CORPUSCULAR VOLUME 88 fl 80.0-1 00.0 MEAN CORPUSCULAR HEMOGLOBIN 29 pg 27 .0-31.0 MEAN CORPUSCULAR HGB CONC 33 g/dl 33.0 -37.0 PLATELET COUNT 270 K/mm3 130-400 MEAN PLATELET VOLUME 9.0 fl 7.4-10.4 LYMPHOCYTES % (AUTO) 34.3 % 20.0-51.0 MONOCYTES % (AUTO) 10.3 % 1.7-9.3 EOSINOPHILS % (AUTO) 2.6 % 0-4.0 BASOPHILS % (AUTO) 0.9 % 0.0-2.0 LYMPHOCYTES # (AUTO) 2.2 1.2-3.4 MONOCYTES # (AUTO) 0.7 0.1-0.6 EOSINOPHILS # (AUTO) 0.2 0.0-0.7 BASOPHILS # (AUTO) 0.1 0.0-0.2 GRAN # 3.4 1.4-6.5 GRAN % 51.6 % 42.2-75.2 REDCELL DISTRIBUTION WIDTH-CV 12.6 % 11.5-14.5 COMPREHENSIVE METABOLIC PANEL - 01/23/18 17:52 SODIUM 138 mmol/L 137-145 POTASSIUM 4.4 mmol/L 3.4-5.0 CHLORIDE 101 mmol/L 98-107 CARBON DIOXIDE 28 mmol/L 22-30 ANION GAP 9 mmol/L 7-16 BLOOD UREA NITROGEN 11 mg/dL 9-20 GLUCOSE 87 mg/dL 74-106 CALCIUM 9.7 mg/dL 8.4-10.2 BILIRUBIN,TOTAL 0.4 mg/dL 0.0-1.0 ALKALINE PHOSPHATASE 55 U/L 50-136 ASPARTATE AMINO TRANSFERASE 25 U/L 15 -37 ALANINE AMINOTRANSFERASE 36 U/L 21-72 TOTAL PROTEIN 7.1 gm/dL 6.4-8.2 ALBUMIN 3.9 gm/dL 3.5-5.0 CREATININE, serum 0.78 mg/dL 0.66-1.25 ADJUSTED CALCIUM 9.8 mg/dL 8.4-10.2 eGFR 145 eGFR non 120 C-REACTIVE PROTEIN - 01/23/18 17:52 hs C REACTIVE PROTEIN < 0.5 mg/dL 0.0-0. 9 LIPASE - 01/23/18 17:52 LIPASE 55 U/L 23-300 URINALYSIS REFLEX CULTURE - 01/23/18 18: 23 COLOR,URINE Yellow BILIRUBIN,URINE Negative NEGATIVE RBC,URINE 0-2 /hpf URINE WBC None Seen /hpf COLLECTION METHOD RANDOM VOIDED URINE KETONE Negative NEGATIVE URINE NITRATE Negative NEGATIVE PH 7 5-8 URINE PROTEIN(semi-quant) Negative NEGA TIVE SPECIFIC GRAVITY,URINE 1.015 1.005-1 .035 URINE APPEARANCE Cloudy URINE BACTERIA None Seen /hpf URINE BLOOD Negative NEGATIVE URINE GLUCOSE Negative NEGATIVE URINE LEUKOCYTE ESTERASE Negative NEGAT CHANDRIKA URINE UROBILINOGEN Negative mg/dL NEGATI VE AMORPHOUS CRYSTAL Present /uL SQUAMOUS EPITHELIAL None Seen /hpf BUDDING YEAST Present /hpf STREP SCREEN - 05/01/18 20:10 STREP SCREEN NEGATIVE NEGATIVE Age at Specimen Collection = a CBC WITH AUTOMATED DIFF - 07/01/18 18:35 WHITE BLOOD COUNT 8.6 K/mm3 4.8-10.8 RED BLOOD COUNT 5.34 M/mm3 4.20-5.60 HEMOGLOBIN 15.4 g/dL 13.5-18.0 HEMATOCRIT 46.9 % 42.0-52.0 MEAN CORPUSCULAR VOLUME 88 fl 78-100 MEAN CORPUSCULAR HEMOGLOBIN 29 pg 27 -31 MEAN CORPUSCULAR HGB CONC 33 g/dL 33-3 7 RED CELL DISTRIBUTION WIDTH 12.5 % 11 .5-14.5 PLATELET COUNT 272 K/mm3 130-400 MEAN PLATELET VOLUME 9.8 fl 7.4-10.4 NEUTROPHILS % (AUTO) 60.2 % 42.0-75.2 LYMPHOCYTES % (AUTO) 25.7 % 20.0-51.0 MONOCYTES % (AUTO) 11.5 % 1.0-10.0 EOSINOPHILS % (AUTO) 1.9 % 0.0-4.0 BASOPHILS % (AUTO) 0.5 % 0.0-2.0 NEUTROPHILS # (AUTO) 5.2 1.40-6.50 LYMPHOCYTES # (AUTO) 2.2 1.50-4.00 MONOCYTES # (AUTO) 1.0 0.20-0.80 EOSINOPHILS # (AUTO) 0.2 0.04-0.40 BASOPHILS # (AUTO) 0.0 0.02-0.10 ADD MANUAL DIFF NO Age at Specimen Collection = a BASIC METABOLIC PANEL - 07/01/18 18:35 SODIUM 143 mmol/L 137-145 POTASSIUM 4.1 mmol/L 3.6-5.0 CHLORIDE 106 mmol/L 98-107 CARBON DIOXIDE 29 mmol/L 22-30 BLOOD UREA NITROGEN 11 mg/dL 9-20 GLUCOSE 82 mg/dL 75-110 CALCIUM 9.0 mg/dL 8.4-10.2 BUN/CREATININE RATIO 14.7 6.0-26.0 CREATININE 0.8 mg/dL 0.8-1.5 Age at Specimen Collection = a eGFR 140 eGFR non 116 URINALYSIS - 07/01/18 18:51 COLOR,URINE YELLOW BILIRUBIN,URINE NEGATIVE NEGATIVE RBC,URINE 0 /hpf 0-3 COLLECTION METHOD CLEAN CATCH URINE KETONE NEGATIVE NEGATIVE URINE NITRATE NEGATIVE NEGATIVE PH-URINE 6.0 5.0 - 8.0 URINE PROTEIN(semi-quant) TRACE mg/dL NE GATIVE SPECIFIC GRAVITY,URINE 1.024 1.001-1 .035 URINE APPEARANCE HAZY URINE AMORPHOUS SEDIMENT PRESENT NOT P RESENT URINE BACTERIA NONE NOT PRESENT URINE BLOOD NEGATIVE NEGATIVE URINE EPITHELIAL CELLS RARE /lpf FEW URINE GLUCOSE NEGATIVE mg/dL NEGATIVE URINE LEUKOCYTE ESTERASE NEGATIVE NEGAT CHANDRIKA URINE MUCUS PRESENT NOT PRESENT URINE UROBILINOGEN NORMAL NORMAL URINE WBC 1-3 /hpf 0-3 Age at Specimen Collection = a DRUGS OF ABUSE SCN, URINE - 08/26/18 03: 05 Age at Specimen Collection = a AMPHETAMINE URINE NEGATIVE ng/mL BARBITURATES URINE NEGATIVE ng/mL BENZODIAZEPINES URINE NEGATIVE ng/mL COCAINE URINE NEGATIVE ng/mL METHAMPHETAMINE URINE NEGATIVE ng/mL METHADONE URINE NEGATIVE ng/mL OPIATES URINE NEGATIVE ng/mL OXYCODONE URINE NEGATIVE ng/mL PHENCYCLIDINE URINE NEGATIVE ng/mL PROPOXYPHENE URINE NEGATIVE ng/mL TRICYCLIC ANTIDEPRESS URINE NEGATIVE ng/mL THC CANNABINOIDS URINE NEGATIVE ng/mL BUPRENORPHINE URINE NEGATIVE ng/mL URINALYSIS - 08/26/18 03:05 COLOR,URINE YELLOW BILIRUBIN,URINE NEGATIVE NEGATIVE RBC,URINE 0-1 /hpf 0-3 COLLECTION METHOD CLEAN CATCH URINE KETONE NEGATIVE NEGATIVE URINE NITRATE NEGATIVE NEGATIVE PH-URINE 5.5 5.0 - 8.0 URINE PROTEIN(semi-quant) NEGATIVE mg/dL NEGATIVE SPECIFIC GRAVITY,URINE 1.030 1.001-1 .035 URINE APPEARANCE HAZY URINE BACTERIA TRACE NOT PRESENT URINE BLOOD TRACE NEGATIVE URINE EPITHELIAL CELLS RARE /lpf FEW URINE GLUCOSE NEGATIVE mg/dL NEGATIVE URINE LEUKOCYTE ESTERASE NEGATIVE NEGAT CHANDRIKA URINE MUCUS PRESENT NOT PRESENT URINE UROBILINOGEN NORMAL NORMAL URINE WBC 0-1 /hpf 0-3 Age at Specimen Collection = a CBC WITH AUTOMATED DIFF - 08/26/18 03:35 WHITE BLOOD COUNT 11.6 K/mm3 4.8-10.8 RED BLOOD COUNT 5.16 M/mm3 4.20-5.60 HEMOGLOBIN 14.8 g/dL 13.5-18.0 HEMATOCRIT 44.6 % 42.0-52.0 MEAN CORPUSCULAR VOLUME 86 fl 78-100 MEAN CORPUSCULAR HEMOGLOBIN 29 pg 27 -31 MEAN CORPUSCULAR HGB CONC 33 g/dL 33-3 7 RED CELL DISTRIBUTION WIDTH 13.1 % 11 .5-14.5 PLATELET COUNT 352 K/mm3 130-400 MEAN PLATELET VOLUME 9.3 fl 7.4-10.4 NEUTROPHILS % (AUTO) 56.0 % 42.0-75.2 LYMPHOCYTES % (AUTO) 31.0 % 20.0-51.0 MONOCYTES % (AUTO) 10.5 % 1.0-10.0 EOSINOPHILS % (AUTO) 1.7 % 0.0-4.0 BASOPHILS % (AUTO) 0.6 % 0.0-2.0 NEUTROPHILS # (AUTO) 6.5 1.40-6.50 LYMPHOCYTES # (AUTO) 3.6 1.50-4.00 MONOCYTES # (AUTO) 1.2 0.20-0.80 EOSINOPHILS # (AUTO) 0.2 0.04-0.40 BASOPHILS # (AUTO) 0.1 0.02-0.10 ADD MANUAL DIFF NO Age at Specimen Collection = a COMPREHENSIVE METABOLIC PANEL - 08/26/18 03:35 SODIUM 139 mmol/L 137-145 POTASSIUM 3.6 mmol/L 3.6-5.0 CHLORIDE 106 mmol/L 98-107 CARBON DIOXIDE 25 mmol/L 22-30 BLOOD UREA NITROGEN 13 mg/dL 9-20 GLUCOSE 95 mg/dL 75-110 CALCIUM 9.6 mg/dL 8.4-10.2 BILIRUBIN,TOTAL 0.5 mg/dL 0.2-1.3 ASPARTATE AMINO TRANSFERASE 23 U/L 17 -59 ALANINE AMINOTRANSFERASE 20 U/L 21-72 TOTAL PROTEIN 7.4 g/dL 6.3-8.2 ALBUMIN 4.4 g/dL 3.5-5.0 ALKP 73 U/L 38-126 BUN/CREATININE RATIO 15.4 6.0-26.0 CREATININE 0.9 mg/dL 0.8-1.5 Age at Specimen Collection = a eGFR 122 eGFR non 101 TROPONIN-I - 08/26/18 03:35 TROPONIN I < 0.03 ng/mL 0.00-0.06 Age at Specimen Collection = a D-DIMER - 08/26/18 03:35 D-DIMER 0.25 mg/L FEU 0.15-0.50 Age at Specimen Collection = a URINALYSIS - 11/24/18 02:35 COLOR,URINE YELLOW BILIRUBIN,URINE NEGATIVE NEGATIVE RBC,URINE 1-3 /hpf 0-3 COLLECTION METHOD CLEAN CATCH URINE KETONE NEGATIVE NEGATIVE URINE NITRATE NEGATIVE NEGATIVE PH-URINE 5.0 5.0 - 8.0 URINE PROTEIN(semi-quant) TRACE mg/dL NE GATIVE SPECIFIC GRAVITY,URINE 1.026 1.001-1 .035 URINE APPEARANCE CLEAR URINE AMORPHOUS SEDIMENT PRESENT NOT P RESENT URINE BACTERIA NONE NOT PRESENT URINE BLOOD NEGATIVE NEGATIVE URINE EPITHELIAL CELLS FEW /lpf FEW URINE GLUCOSE NEGATIVE mg/dL NEGATIVE URINE LEUKOCYTE ESTERASE NEGATIVE NEGAT CHANDRIKA URINE MUCUS PRESENT NOT PRESENT URINE UROBILINOGEN NORMAL NORMAL URINE WBC 0-1 /hpf 0-3 Age at Specimen Collection = a CBC WITH AUTOMATED DIFF - 11/24/18 02:45 WHITE BLOOD COUNT 8.8 K/mm3 4.8-10.8 RED BLOOD COUNT 5.37 M/mm3 4.20-5.60 HEMOGLOBIN 15.6 g/dL 13.5-18.0 HEMATOCRIT 46.8 % 42.0-52.0 MEAN CORPUSCULAR VOLUME 87 fl 78-100 MEAN CORPUSCULAR HEMOGLOBIN 29 pg 27 -31 MEAN CORPUSCULAR HGB CONC 33 g/dL 33-3 7 RED CELL DISTRIBUTION WIDTH 12.8 % 11 .5-14.5 PLATELET COUNT 299 K/mm3 130-400 MEAN PLATELET VOLUME 9.4 fl 7.4-10.4 NEUTROPHILS % (AUTO) 54.2 % 42.0-75.2 LYMPHOCYTES % (AUTO) 32.0 % 20.0-51.0 MONOCYTES % (AUTO) 11.1 % 1.0-10.0 EOSINOPHILS % (AUTO) 1.9 % 0.0-4.0 BASOPHILS % (AUTO) 0.6 % 0.0-2.0 NEUTROPHILS # (AUTO) 4.8 1.40-6.50 LYMPHOCYTES # (AUTO) 2.8 1.50-4.00 MONOCYTES # (AUTO) 1.0 0.20-0.80 EOSINOPHILS # (AUTO) 0.2 0.04-0.40 BASOPHILS # (AUTO) 0.1 0.02-0.10 ADD MANUAL DIFF NO Age at Specimen Collection = a COMPREHENSIVE METABOLIC PANEL - 11/24/18 02:45 SODIUM 138 mmol/L 136-145 POTASSIUM 3.8 mmol/L 3.5-5.1 CHLORIDE 105 mmol/L 98-107 CARBON DIOXIDE 23 mmol/L 22-29 BLOOD UREA NITROGEN 11 mg/dL 8.9-20.6 GLUCOSE 87 mg/dL 75-110 CALCIUM 9.3 mg/dL 8.3-10.5 BILIRUBIN,TOTAL 0.7 mg/dL 0.2-1.2 ASPARTATE AMINO TRANSFERASE 16 U/L 5- 34 ALANINE AMINOTRANSFERASE 18 U/L 0-55 TOTAL PROTEIN 7.0 g/dL 6.4-8.3 ALBUMIN 4.2 g/dL 3.5-5.0 ALKP 75 U/L 40-150 BUN/CREATININE RATIO 13.0 6.0-26.0 CREATININE 0.8 mg/dL 0.72-1.25 Age at Specimen Collection = a eGFR 140 >=60 eGFR non 116 >=60 LIPASE - 11/24/18 02:45 LIPASE 13 U/L 8-78 Age at Specimen Collection = a CBC WITH AUTOMATED DIFF - 12/31/18 08:30 WHITE BLOOD COUNT 9.3 K/mm3 4.8-10.8 RED BLOOD COUNT 5.58 M/mm3 4.20-5.60 HEMOGLOBIN 16.1 g/dL 13.5-18.0 HEMATOCRIT 48.9 % 42.0-52.0 MEAN CORPUSCULAR VOLUME 88 fl 78-100 MEAN CORPUSCULAR HEMOGLOBIN 29 pg 27 -31 MEAN CORPUSCULAR HGB CONC 33 g/dL 33-3 7 RED CELL DISTRIBUTION WIDTH 12.8 % 11 .5-14.5 PLATELET COUNT 313 K/mm3 130-400 MEAN PLATELET VOLUME 9.6 fl 7.4-10.4 NEUTROPHILS % (AUTO) 52.7 % 42.0-75.2 LYMPHOCYTES % (AUTO) 33.5 % 20.0-51.0 MONOCYTES % (AUTO) 9.7 % 1.0-10.0 EOSINOPHILS % (AUTO) 3.4 % 0.0-4.0 BASOPHILS % (AUTO) 0.6 % 0.0-2.0 NEUTROPHILS # (AUTO) 4.9 1.40-6.50 LYMPHOCYTES # (AUTO) 3.1 1.50-4.00 MONOCYTES # (AUTO) 0.9 0.20-0.80 EOSINOPHILS # (AUTO) 0.3 0.04-0.40 BASOPHILS # (AUTO) 0.1 0.02-0.10 ADD MANUAL DIFF NO Age at Specimen Collection = a BASIC METABOLIC PANEL - 12/31/18 08:30 SODIUM 139 mmol/L 136-145 POTASSIUM 4.1 mmol/L 3.5-5.1 CHLORIDE 103 mmol/L 98-107 CARBON DIOXIDE 25 mmol/L 22-29 BLOOD UREA NITROGEN 9 mg/dL 8.9-20.6 GLUCOSE 92 mg/dL 75-110 CALCIUM 9.6 mg/dL 8.3-10.5 BUN/CREATININE RATIO 10.0 6.0-26.0 CREATININE 0.9 mg/dL 0.72-1.25 Age at Specimen Collection = a eGFR 122 >=60 eGFR non 101 >=60 THYROID STIMULATING HORMONE - 02/28/19 0 0:45 THYROID STIMULATING HORMONE 0.85 uIU/mL 0.35-4.94 Age at Specimen Collection = a CBC WITH AUTOMATED DIFF - 02/28/19 04:50 WHITE BLOOD COUNT 8.4 K/mm3 4.8-10.8 RED BLOOD COUNT 5.07 M/mm3 4.20-5.60 HEMOGLOBIN 14.7 g/dL 13.5-18.0 HEMATOCRIT 44.0 % 42.0-52.0 MEAN CORPUSCULAR VOLUME 87 fl 78-100 MEAN CORPUSCULAR HEMOGLOBIN 29 pg 27 -31 MEAN CORPUSCULAR HGB CONC 33 g/dL 33-3 7 RED CELL DISTRIBUTION WIDTH 12.9 % 11 .5-14.5 PLATELET COUNT 282 K/mm3 130-400 MEAN PLATELET VOLUME 9.6 fl 7.4-10.4 NEUTROPHILS % (AUTO) 50.0 % 42.0-75.2 LYMPHOCYTES % (AUTO) 34.5 % 20.0-51.0 MONOCYTES % (AUTO) 10.9 % 1.0-10.0 EOSINOPHILS % (AUTO) 3.8 % 0.0-4.0 BASOPHILS % (AUTO) 0.7 % 0.0-2.0 NEUTROPHILS # (AUTO) 4.2 1.40-6.50 LYMPHOCYTES # (AUTO) 2.9 1.50-4.00 MONOCYTES # (AUTO) 0.9 0.20-0.80 EOSINOPHILS # (AUTO) 0.3 0.04-0.40 BASOPHILS # (AUTO) 0.1 0.02-0.10 ADD MANUAL DIFF NO Age at Specimen Collection = a TROPONIN-I - 02/28/19 04:50 Age at Specimen Collection = a TROPONIN-I < 0.03 ng/mL <0.030 COMPREHENSIVE METABOLIC PANEL - 02/28/19 04:50 SODIUM 141 mmol/L 136-145 POTASSIUM 3.8 mmol/L 3.5-5.1 CHLORIDE 108 mmol/L 98-107 CARBON DIOXIDE 25 mmol/L 22-29 BLOOD UREA NITROGEN 8 mg/dL 8.9-20.6 GLUCOSE 106 mg/dL 75-110 CALCIUM 9.2 mg/dL 8.3-10.5 BILIRUBIN,TOTAL 0.3 mg/dL 0.2-1.2 ASPARTATE AMINO TRANSFERASE 12 U/L 5- 34 ALANINE AMINOTRANSFERASE 18 U/L 0-55 TOTAL PROTEIN 6.7 g/dL 6.4-8.3 ALBUMIN 4.0 g/dL 3.5-5.0 ALKP 79 U/L 40-150 BUN/CREATININE RATIO 10.0 6.0-26.0 CREATININE 0.8 mg/dL 0.72-1.25 Age at Specimen Collection = a eGFR 140 >=60 eGFR non 116 >=60 URINALYSIS - 02/28/19 05:08 COLOR,URINE YELLOW BILIRUBIN,URINE NEGATIVE NEGATIVE RBC,URINE 0-1 /hpf 0-3 COLLECTION METHOD CLEAN CATCH URINE KETONE NEGATIVE NEGATIVE URINE NITRATE NEGATIVE NEGATIVE PH-URINE 7.0 5.0 - 8.0 URINE PROTEIN(semi-quant) TRACE mg/dL NE GATIVE SPECIFIC GRAVITY,URINE 1.022 1.001-1 .035 URINE APPEARANCE CLEAR URINE AMORPHOUS SEDIMENT PRESENT NOT P RESENT URINE BACTERIA NONE NOT PRESENT URINE BLOOD NEGATIVE NEGATIVE URINE EPITHELIAL CELLS RARE /lpf FEW URINE GLUCOSE NEGATIVE mg/dL NEGATIVE URINE LEUKOCYTE ESTERASE TRACE NEGAT CHANDRIKA URINE MUCUS PRESENT NOT PRESENT URINE UROBILINOGEN NORMAL NORMAL URINE WBC 0-1 /hpf 0-3 Age at Specimen Collection = a DRUGS OF ABUSE SCN, URINE - 02/28/19 05: 08 Age at Specimen Collection = a AMPHETAMINE URINE NEGATIVE ng/mL BARBITURATES URINE NEGATIVE ng/mL BENZODIAZEPINES URINE NEGATIVE ng/mL COCAINE URINE NEGATIVE ng/mL METHAMPHETAMINE URINE NEGATIVE ng/mL METHADONE URINE NEGATIVE ng/mL OPIATES URINE NEGATIVE ng/mL OXYCODONE URINE NEGATIVE ng/mL PHENCYCLIDINE URINE NEGATIVE ng/mL PROPOXYPHENE URINE NEGATIVE ng/mL TRICYCLIC ANTIDEPRESS URINE NEGATIVE ng/mL THC CANNABINOIDS URINE NEGATIVE ng/mL BUPRENORPHINE URINE NEGATIVE ng/mL Radiology Report from [id number] on 07:40:17 CLINICAL HISTORY: left wrist pain
<b r>
FINDINGS:
Frontal, lateral, and oblique radiographs of the left wrist were obtained and compared with the prior examination dated 15 March 2011. Note is made of a healed fracture involving the distal radius with dorsal angulation of the distal fracture fragment. The dorsal angulation appears to be stable when compared with the prior examination. Additionally there are well circumscribed calcific fragments in the region of the ulnar styloid consistent with old fracture. The healed fracture deformity results in an ulnar positive variance which may result in degenerative change although no significant degenerative changes are noted on the current exam. There is no acute fracture or other osseous abnormality.

IMPRESSION:
Post fracture changes as described above.

Dictated Date/Time: 08/03/2013735

Ref# [id number] Radiology Report from [id number] on 16:48:58 CLINICAL HISTORY: abdominal pain

FINDINGS:
Four views were performed.

The lungs are clear and the heart size is normal. There is no bone abnormality.

In the abdomen there is no bowel obstruction. The osseous structures are normal.

IMPRESSION:
Normal acute abdominal series.

Dictated Date/Time: 01/29/2014727

Ref# [id number] Radiology Report from [id number] on 16:48:58 CLINICAL HISTORY: abdominal pain and el evated white blood cell count

FINDINGS:
Multiple axial along with coronal and sagittal reformatted images were obtained through the abdomen and pelvis with contrast.

The osseous structures are normal and the lung bases are clear.

The liver, spleen, pancreas, adrenal glands, and left kidney are normal. In the lower pole of the right kidney there is a low attenuation structure with Hounsfield units less than 15 that is most consistent with small cyst. It measures 1.8 cm in diameter. The gallbladder is contracted.

The aorta, small bowel and large bowel are normal.

The appendix is directly in front of the iliac vessels. It has an enhancing wall and surrounding inflammation. The tip of the appendix is in the midline. Findings represent mild appendicitis. Terminal ileum is just above this structure. There are a few reactive lymph nodes in the right lower quadrant. Small amount of fluid is present in the pelvis. The study is otherwise normal.

IMPRESSION:
Mild appendicitis.

These findings were called to Dr. Grant.

Dictated Date/Time: 01/29/2014728

Ref# [id number] Encounters ACCT No. Visit Date/Time Discharge Status Pt. Type Provider Facility Loc./Unit Complaint [id number] 03/27/2019 14:46:00 03/27/2019 23:59: 59 CLS Outpatient MD Manuela, Miriam [id number] 03/27/2019 14:46:00 03/27/2019 23:59: 59 CLS Outpatient MD Manuela, Miriam [id number] 03/27/2019 14:46:00 03/27/2019 23:59: 59 CLS Outpatient EDDIE Harmon, Karl [id number] 03/27/2019 14:45:00 03/27/2019 23:59: 59 CLS Outpatient Fabby DPT, Catie [id number] 10/04/2018 00:00:00 10/04/2018 23:59: 59 CLS Outpatient MD Manuela, Miriam [id number] 08/31/2018 00:00:00 08/31/2018 23:59: 59 CLS Outpatient MD Manuela, Miriam [id number] 09/07/2018 09:45:00 9 23:59:59 CLS Preadmit MANUELA KNOTT, MIRIAM Via [facility]. COL.RAD MR CALDERON RT [facility] [id number] 01/23/2018 16:22:00 8 19:34:00 DIS Emergency ALMITA ESTEVEZ Via [facility] COL.ER [id number] 09/27/2017 03:51:00 8 05:51:00 DIS Emergency Emily KNOTT, Tara Via [facility] COL.ER [id number] 03/10/2017 15:47:00 7 16:40:00 DIS Emergency BUDDY SIFUENTES [facility] COL.ER [id number] 03/05/2017 16:12:00 7 18:34:00 DIS Emergency ALMITA ESTEVEZ Via [facility] COL.ER [id number] 12/28/2016 00:41:00 7 02:46:00 DIS Emergency JoséRoby sprague V [facility]. COL.ER [id number] 12/02/2016 23:28:00 7 01:30:00 DIS Emergency BUDDY SIFUENTES [facility]. COL.ER [id number] 10/13/2016 08:12:00 7 10:28:00 DIS Emergency GUCCI REYNAGA V [facility]. COL.ER [id number] 10/12/2016 19:36:00 7 20:46:00 DIS Emergency ALMITA ESTEVEZ Via [facility]. COL.ER [id number] 10/10/2016 21:58:00 7 23:02:00 DIS Emergency HERBALMITA Via [facility]. COL.ER [id number] 09/18/2016 09:55:00 7 23:59:59 CLS Outpatient Jennifer Lee [facility]. [facility] [id number] 09/18/2013 23:53:00 4 00:35:00 DIS Emergency BUDDY SIFUENTES a [facility]. COL.ER [id number] 03/04/2013 15:40:00 3 23:59:59 CLS Outpatient [id number] 07/12/2014 09:10:00 Document Registration [id number] 04/17/2019 16:59:00 9 18:23:00 DIS Emergency Harley Perry ED ER [id number] 03/04/2019 21:30:00 9 21:45:00 DIS Emergency JENNIFER LEE APRN [facility] ED ER [id number] 02/28/2019 04:55:00 9 07:20:00 DIS Emergency Harley Perry ED ER [id number] 12/31/2018 08:21:00 9 23:59:59 CLS Outpatient Seda Rubin [facility] LAB LAB [id number] 12/11/2018 02:00:00 9 02:14:00 DIS Emergency JENNIFER LEE APRN [facility] ED ER [id number] 11/24/2018 02:26:00 9 03:34:00 [id number] 08/26/2018 03:02:00 9 04:55:00 DIS Emergency JENNIFER LEE APRN [facility] ED ER [id number] 08/10/2018 18:35:00 9 20:20:00 DIS Emergency THADDEUS COATS [facility] ED ER [id number] 08/07/2018 00:45:00 9 01:10:00 DIS Emergency THADDEUS COATS [facility] ED ER [id number] 07/01/2018 18:39:00 9 19:24:00 DIS Emergency Librado VANESSA Seda [facility] ED ER [id number] 06/24/2018 02:23:00 9 02:32:00 DIS Emergency JENNIFER LEE APRN [facility] ED ER [id number] 06/04/2018 23:35:00 9 01:36:00 DIS Emergency JENNIFER LEE APRN [facility] ED ER [id number] 05/01/2018 20:02:00 8 20:30:00 DIS Emergency Harley Perry ED ER [id number] 04/29/2018 11:13:00 8 12:48:00 DIS Emergency THADDEUS COATS [facility] ED ER [id number] 11/07/2017 03:46:00 8 04:04:00 DIS Emergency Librado VANESSA Seda [facility] ED ER [id number] 09/17/2016 19:59:00 7 22:13:00 DIS Emergency ROSAJENNIFER APRN [facility] ED ER [id number] 05/16/2013 00:44:00 3 02:57:00 DIS Emergency [id number] 03/25/2018 02:00:00 03/25/2018 03: 00:00 DIS undefined NELLYMARIOFortinoROGELIOTT Peña ER [id number] 12/18/2014 12:40:00 12/18/2014 14: 22:00 DIS Emergency THADDEUS MCGRATH Peña [facility] ER [id number] 01/29/2014 16:51:34 Document Registration [id number] 01/29/2014 04:00:24 Document Registration [id number] 01/28/2014 23:10:00 Document Registration [id number] 10/16/2013 15:14:54 Document Registration [id number] 08/24/2013 21:42:45 Document Registration [id number] 08/03/2013 08:09:00 Document Registration [id number] 02/28/2019 05:08:00 Document Registration [id number] 12/31/2018 08:32:00 Document Registration [id number] 11/24/2018 03:04:00 Document Registration [id number] 08/26/2018 04:04:00 Document Registration [id number] 07/01/2018 18:46:00 Document Registration [id number] 05/01/2018 20:24:00 Document Registration [id number] 09/17/2016 20:46:00 Document Registration
[2019-09-20] MEDS ORDERED: LIDOCAINE 2% VISCOUS 15 ML UDC PO ONE (01:15)
[2019-09-20] MEDS ORDERED: ANTACID SUSP 30 ML UDC (MYLANTA) PO ONE (01:15)
[2019-09-20] MEDS ORDERED: FAMOTIDINE 20MG/2ML IV (PEPCID) IVP ONE (01:15)
[2019-09-20 01:20] LABS: BASOPHILS # (AUTO) 0.1 10^3/uL (0.0-0.1); BASOPHILS % (AUTO) 1 % (0-10); EOSINOPHILS # (AUTO) 0.3 10^3/uL (0.0-0.3); EOSINOPHILS % (AUTO) 2 % (0-10); HEMATOCRIT 49 % (40-54); LYMPHOCYTES # (AUTO) 3.5 X 10^3 (1.0-4.0); LYMPHOCYTES % (AUTO) 26 % (12-44); MEAN CORPUSCULAR HEMOGLOBIN 30 PG (25-34); MEAN CORPUSCULAR HGB CONC 35 G/DL (32-36); MEAN CORPUSCULAR VOLUME 87 FL (80-99); MEAN PLATELET VOLUME 9.5 FL (7.4-10.4); MONOCYTES # (AUTO) 1.3 X 10^3 (0.0-1.0); MONOCYTES % (AUTO) 10 % (0-12); NEUTROPHILS # (AUTO) 8.3 X 10^3 (1.8-7.8); NEUTROPHILS % (AUTO) 62 % (42-75); PLATELET COUNT 302 10^3/uL (130-400); RED CELL DISTRIBUTION WIDTH 12.8 % (10.0-14.5); WHITE BLOOD COUNT 13.5 10^3/uL (4.3-11.0)
[2019-09-20 01:25] LABS: ALBUMIN 4.4 GM/DL (3.2-4.5); CHLORIDE 107 MMOL/L (98-107); POTASSIUM 4.7 MMOL/L (3.6-5.0); SODIUM 137 MMOL/L (135-145)
[2019-09-20 01:26] LABS: CALCIUM 9.3 MG/DL (8.5-10.1)
[2019-09-20 01:27] LABS: GLUCOSE 104 MG/DL (70-105); TOTAL PROTEIN 7.8 GM/DL (6.4-8.2)
[2019-09-20 01:28] LABS: CARBON DIOXIDE 18 MMOL/L (21-32)
[2019-09-20 01:29] LABS: BILIRUBIN,TOTAL 0.4 MG/DL (0.1-1.0)
--- NOTE | 2019-09-20 01:29 | ED Chest Pain ---
General Chief Complaint: Chest Pain Stated Complaint: CP, BACK PAIN Nursing Triage Note: TO ED VIA POV AND AMBULATORY TO ED ROOM 5 WITH C/O CHEST PAIN MID CHEST TO BACK THAT STARTED DULL PAIN THIS MORNING AND HAS PROGRESSIVELY GOTTEN WORSE. PT TOOK TUMS WITH NO RELIEF, NO OTHER PAIN MEDICATIONS. Nursing Sepsis Screen: No Definite Risk Source: patient Exam Limitations: no limitations History of Present Illness Date Seen by Provider: September 20, 2019 Time Seen by Provider: 01:00 Initial Comments This 29 year old young man presents to the ER with complaints of central chest pain that started early yesterday morning. It has been persistent and radiates to his back. He took Tums presuming it was acid reflux. This did not help. Patient has had similar pains in the past related to acid reflux, but the pain has typically responded well to antiacid medications. He denies any shortness of breath, cough, fever, or other associated symptoms. He does smoke but denies any cardiopulmonary problems. He denies any drug use. He rarely drinks alcohol and drink a beer yesterday. He reports some numbness and tingling in the bilateral hands. He denies hyperventilation or anxiety, but he appears fairly anxious to the staff. Allergies and Home Medications Allergies Coded Allergies: No Known Drug Allergies (Unverified , 09/20/19) Patient Home Medication List Home Medication List Reviewed: Yes Review of Systems Review of Systems Constitutional: no symptoms reported EENTM: No Symptoms Reported Respiratory: No Symptoms Reported Cardiovascular: See HPI Gastrointestinal: See HPI Genitourinary: No Symptoms Reported Musculoskeletal: no symptoms reported Skin: no symptoms reported Psychiatric/Neurological: No Symptoms Reported Endocrine: No Symptoms Reported Hematologic/Lymphatic: No Symptoms Reported Past Tzxoscf-Lhunkc-Zevnts Hx Past Med/Social Hx: Reviewed and Corrections made Patient Social History Alcohol Use: Rarely Uses Recreational Drug Use: No Smoking Status: Current Everyday Smoker Recent Foreign Travel: No Contact w/Someone Who Travel: No Recent Infectious Disease Expo: No Recent Hopitalizations: No Physical Abuse: No Sexual Abuse: No Mistreated: No Fear: No Seasonal Allergies Seasonal Allergies: No Past Medical History Surgeries: Yes Orthopedic Respiratory: No Cardiac: No Neurological: No Genitourinary: No Gastrointestinal: Yes Gastroesophageal Reflux, Gastrointestinal Bleed Musculoskeletal: No Cancer: No Psychosocial: Yes ADD/ADHD, Anxiety Integumentary: No Blood Disorders: No Adverse Reaction/Blood Tranf: No Physical Exam Vital Signs Vital Signs - First Documented 09/20/19 02:46 Pulse Ox 96 Capillary Refill : Less Than 3 Seconds Height, Weight, BMI Height: '" Weight: lbs. oz. 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, Other (appears anxious) Skin: Normal Color, Warm/Dry Progress/Results/Core Measures Results/Orders Lab Results Laboratory Tests Test 09/20/19 01:02 Range/Units White Blood Count 13.5 H 4.3-11.0 10^3/uL Red Blood Count 5.69 4.35-5.85 10^6/uL Hemoglobin 17.0 13.3-17.7 G/DL Hematocrit 49 40-54 % Mean Corpuscular Volume 87 80-99 FL Mean Corpuscular Hemoglobin 30 25-34 PG Mean Corpuscular Hemoglobin Concent 35 32-36 G/DL Red Cell Distribution Width 12.8 10.0-14.5 % Platelet Count 302 130-400 10^3/uL Mean Platelet Volume 9.5 7.4-10.4 FL Neutrophils (%) (Auto) 62 42-75 % Lymphocytes (%) (Auto) 26 12-44 % Monocytes (%) (Auto) 10 0-12 % Eosinophils (%) (Auto) 2 0-10 % Basophils (%) (Auto) 1 0-10 % Neutrophils # (Auto) 8.3 H 1.8-7.8 X 10^3 Lymphocytes # (Auto) 3.5 1.0-4.0 X 10^3 Monocytes # (Auto) 1.3 H 0.0-1.0 X 10^3 Eosinophils # (Auto) 0.3 0.0-0.3 10^3/uL Basophils # (Auto) 0.1 0.0-0.1 10^3/uL Prothrombin Time 12.8 12.2-14.7 SEC INR Comment 0.9 0.8-1.4 Activated Partial Thromboplast Time 28 24-35 SEC D-Dimer < 0.27 0.00-0.49 UG/ML Sodium Level 137 135-145 MMOL/L Potassium Level 4.7 3.6-5.0 MMOL/L Chloride Level 107 98-107 MMOL/L Carbon Dioxide Level 18 L 21-32 MMOL/L Anion Gap 12 5-14 MMOL/L Blood Urea Nitrogen 12 7-18 MG/DL Creatinine 0.84 0.60-1.30 MG/DL Estimat Glomerular Filtration Rate > 60 BUN/Creatinine Ratio 14 Glucose Level 104 70-105 MG/DL Calcium Level 9.3 8.5-10.1 MG/DL Corrected Calcium 9.0 8.5-10.1 MG/DL Magnesium Level 2.0 1.6-2.4 MG/DL Total Bilirubin 0.4 0.1-1.0 MG/DL Aspartate Amino Transf (AST/SGOT) 21 5-34 U/L Alanine Aminotransferase (ALT/SGPT) 20 0-55 U/L Alkaline Phosphatase 90 40-136 U/L Myoglobin 22.8 10.0-92.0 NG/ML Troponin I < 0.028 <0.028 NG/ML Total Protein 7.8 6.4-8.2 GM/DL Albumin 4.4 3.2-4.5 GM/DL My Orders Orders - GLENNA KIMBROUGH MD Antacid Suspension (Mylanta Suspension (09/20/19 01:03) Lidocaine 2% Viscous 15 Ml (Xylocaine Vi (09/20/19 01:15) Antacid Suspension (Mylanta Suspension (09/20/19 01:15) Famotidine Injection (Pepcid Injection) (09/20/19 01:15) Lidocaine 2% Viscous 15 Ml (Xylocaine Vi (09/20/19 01:03) Cbc With Automated Diff (09/20/19:11) Magnesium (09/20/19 01:11) Chest 1 View, Ap/Pa Only (09/20/19 01:11) Ekg Tracing (09/20/19 01:11) Comprehensive Metabolic Panel (09/20/19 01:11) Myoglobin Serum (09/20/19 01:11) Protime With Inr (09/20/19 01:11) Partial Thromboplastin Time (09/20/19 01:11) O2 (09/20/19 01:11) Monitor-Rhythm Ecg Trace Only (09/20/19 01:11) Ed Iv/Invasive Line Start (09/20/19 01:11) Troponin I (09/20/19 01:02) Ketorolac Injection (Toradol Injection) (09/20/19 01:45) Fibrin Degradation Products (09/20/19 01:02) Medications Given in ED Current Medications Medications Dose Ordered Sig/Gideon Route Start Time Stop Time Status Last Admin Dose Admin Al Hydrox/Mg Hydrox/Simethicone 30 ml STK-MED ONCE .ROUTE 09/20/19 01:03 09/20/19 01:10 DC 09/20/19 01:12 30 ML Famotidine 20 mg ONCE ONCE IVP 09/20/19 01:15 09/20/19 01:16 DC 09/20/19 01:13 20 MG Ketorolac Tromethamine 15 mg ONCE ONCE IVP 09/20/19 01:45 09/20/19 01:46 DC 09/20/19 01:51 15 MG Lidocaine HCl 15 ml STK-MED ONCE .ROUTE 09/20/19 01:03 09/20/19 01:11 DC 09/20/19 01:12 15 ML Vital Signs/I&O 09/20/19 09/20/19 09/20/19 01:00 01:00 02:46 Temp 36.8 36.8 Pulse 79 66 Resp 20 16 B/P (MAP) 131/96 (108) 117/80 (108) Pulse Ox 96 O2 Delivery Room Air Room Air Room Air Blood Pressure Mean: 108 Progress Progress Note : Progress Note Workup was unremarkable. Patient received a GI cocktail and Pepcid without significant improvement. Toradol decrease his pain from 8/10 down to 3/10. Initial ECG Impression Date: September 20, 2019 Initial ECG Impression Time: 01:03 Initial ECG Rate: 77 Initial ECG Rhythm: Normal Sinus Initial ECG Intervals: Normal Initial ECG Impression: Normal Comment Normal sinus rhythm with no ST elevation or depression. No abnormal intervals or axis deviation. Diagnostic Imaging Diagonstic Imaging: Xray Plain Films/CT/US/NM/MRI: chest Comments Chest x-ray viewed by me and report not yet available. No acute abnormalities appreciated. Departure Impression Primary Impression: Atypical chest pain Disposition: 01 HOME, SELF-CARE Condition: Improved Departure-Patient Inst. Decision time for Depature: 02:32 Referrals: NO,LOCAL PHYSICIAN (PCP/Family) Primary Care Physician Patient Instructions: Chest Pain Add. Discharge Instructions: Take an antacid medication such as Pepcid (famotidine) 20 mg twice daily or omeprazole 20 mg twice daily for the next couple of weeks. Avoid the following: Eating large meals, eating close to bedtime, caffeine, carbonation, alcohol, tobacco, chocolate, citrus fruits and juices, tomato products, mints, spicy foods, fatty or greasy foods, NSAID medications such as ibuprofen or naproxen, or anything else you know irritates your stomach. If consistent use of antacid medications and dietary changes do not improve your pain, you may try ibuprofen up to 600 mg every 6 hours and/or Tylenol (acetaminophen) up to 1000 mg every 6 hours as needed. Return to care if you have worsening symptoms or persistent symptoms despite following these recommendations. Follow-up with your primary care provider soon as possible. All discharge instructions reviewed with patient and/or family. Voiced understanding. GLENNA KIMBROUGH MD September 20, 2019 01:28
[2019-09-20 01:31] LABS: ALKALINE PHOSPHATASE 90 U/L (40-136); CREATININE SERUM 0.84 MG/DL (0.60-1.30); GFR ESTIMATED > 60
[2019-09-20 01:32] LABS: BUN/CREATININE RATIO 14
[2019-09-20 01:34] LABS: ALANINE AMINOTRANSFERASE 20 U/L (0-55)
[2019-09-20 01:45] LABS: INR 0.9 (0.8-1.4); PARTIAL THROMBOPLASTIN TIME 28 SEC (24-35); PROTHROMBIN TIME PATIENT 12.8 SEC (12.2-14.7)
[2019-09-20] MEDS ORDERED: KETOROLAC 30 MG/ML VIAL IVP ONE (01:45)
[2019-09-20 02:06] LABS: FIBRIN DEGRADATION PRODUCTS < 0.27 UG/ML (0.00-0.49)
[2019-09-20 02:46] VITALS: BP 117/80
--- NOTE | 2019-09-20 06:44 | Diagnostic Imaging Report ---
EXAMINATION: Chest radiograph, portable AP view. DATE: 09/20/2019 1:27 AM hours. INDICATION: 29-year-old male, chest pain. COMPARISON: None. FINDINGS: Heart size and mediastinal contours are unremarkable. There is no identified pneumothorax. There is no large pleural effusion. There is no identified focal airspace consolidation. There is no identified significantly displaced rib fracture. IMPRESSION: No identified acute cardiopulmonary abnormality. Dictated by: Dictated on workstation # [id number]
== END 2019-09-20 02:46 | disposition home or self-care (01) ==
LOC: ER 00:58
DX: R07.89 Other chest pain (principal); F17.200 Nicotine dependence, unspecified, uncomplicated; K21.9 Gastro-esophageal reflux disease without esophagitis; F90.9 Attention-deficit hyperactivity disorder, unspecified type; F41.9 Anxiety disorder, unspecified
CPT/HCPCS: 36415; 71045; 80053; 83735; 83874; 84484; 85025; 85379; 85610; 85730; 93005; 93041